=== PATIENT | female | born 1960 | race Caucasian/White ===

== ENCOUNTER 2025-08-10 10:52 | Emergency (ER) | payer MEDICARE, SELFPAY ==
--- NOTE | ~2025-08-10 | CT_ITS ---
CLINICAL HISTORY: abdominal pain CT abdomen and pelvis without contrast Comparison: None provided Findings: The lung bases are clear. Cholelithiasis. No pericholecystic fluid. No extrahepatic ductal dilation. 2.7 cm right kidney midpole exophytic cyst. Multifocal cortical scarring of the left kidney with mild perinephric stranding. No hydronephrosis or nephrolithiasis. No bowel obstruction, pneumoperitoneum, or pneumatosis. Pelvic contents unremarkable. Normal appendix. A large heterogeneous lesion measuring fluid density within the right psoas measuring 11.0 x 7.8 x 8.0 cm is seen. The bones are intact. IMPRESSION: A large heterogeneous lesion measuring fluid density within the right psoas measuring 11.0 x 7.8 x 8.0 cm. Differentials include psoas hematoma, phlegmon or developing abscess. Contrast enhanced CT or MRI is recommended for further evaluation. Cholelithiasis. Right kidney midpole exophytic 2.7 cm cyst. Multifocal cortical scarring of the left kidney with mild perinephric stranding. This document has been electronically signed by: Ananda Vale MD on 08/10/2025 20:13:43
[2025-08-10 11:10] VITALS: BP 152/77; PULSE 94; RESP 18; TEMP 36.9; O2SAT 96; BMI 39.0
--- NOTE | 2025-08-10 11:10 | ED.GENADULT ---
HPI - General Adult General Chief complaint: Urogenital-Female Stated complaint: uti? , right sided pain, hx of kidney failure Time Seen by Provider: 08/10/25 16:46 Source: patient Mode of arrival: ambulatory Limitations: no limitations History of Present Illness ED Provider: Dr. Pino HPI narrative: This is a 64-year-old female history of presented hospital today for 5 months of right hip pain and thigh pain. Patient is also complaining of right flank pain as well. Patient stated that this pain is on and off. She is also mentioning that she is losing some weight associated with this pain. She does have history of CKD where she falls nephrologists with. She denies any fever. Patient stated that this has been going on since winter time. She has not follow up with a doctor in regards to this pain. Related Data Previous Rx's ?Medication ?Instructions ?Recorded doxycycline hyclate 100 mg capsule 100 mg PO BID 7 days #14 caps 08/10/25 metronidazole 500 mg tablet 500 mg PO BID 7 days #14 tabs 08/10/25 Allergies Allergy/AdvReac Type Severity Reaction Status Date / Time codeine (CODEINE) Allergy Intermediate UNKNOWN Verified 08/10/25 11:15 Penicillins (PENICILLINS) Allergy Intermediate UNKNOWN Verified 08/10/25 11:15 clonidine Allergy Unknown tongue/facial Verified 08/10/25 11:15 swelling terazosin (TERAZOSIN) Allergy Unknown UNKNOWN, Verified 08/10/25 11:15 leg pain ? swelling valsartan (VALSARTAN) Allergy Unknown UNKNOWN, Verified 08/10/25 11:15 edema acetaminophen (Percocet) AdvReac Unknown N/V Verified 08/10/25 11:15 oxycodone (Percocet) AdvReac Unknown N/V Verified 08/10/25 11:15 penicillin V AdvReac Unknown N/V Verified 08/10/25 11:15 Codeine Sulfate AdvReac Unknown N/V Uncoded 08/10/25 11:15 Review of Systems Review of Systems: Pertinent review of systems as mentioned in HPI. All other system otherwise negative. COUNT INCLUDES THE [facility] Past Medical History COUNT INCLUDES THE [facility] Narrative: Medical history as mentioned in HPI Social History Social History Advance Directives: No Advance Directives Information Provided: No Physical Exam ED Exam Exam: General: Pleasant, no distress, interacting appropriately Head: Normacephalic, atraumatic ENT: oral mucosa moist, neck supple, no tracheal deviation Cardiovascular: regular rate, regular rhythm, no murmurs, rubbing, gallops Respiratory: CTAB, no wheeze, rales, rhonchi Gastrointestinal: Soft, non distended, right-sided abdominal pain on palpation, no CVA tenderness on exam. Extremities: Trace edema bilateral lower extremity Neurological: Awake and alert, no facial droop noted Skin: Warm and dry Psychiatric: Appropriate mood and thoughts Vital Signs: Vital Signs - 24 hr 08/10/25 11:10 08/10/25 17:40 08/10/25 21:11 Temperature 98.5 F 98.2 F Pulse Rate 94 69 96 Respiratory Rate 18 18 20 Blood Pressure 152/77 H 178/95 H 147/94 H Pulse Oximetry 96 99 99 Oxygen Delivery Method Room Air Room Air Room Air BMI result Body Mass Index 39.0 Course Course Course Narrative: This is a rapid medical exam performed by Addi Arboleda [employer]: Additional HPI, ROS, PE not included below will be deferred to primary provider. Patient is a 64y/o F presenting to the ED with complaint of right flank pain, questioning UTI. States pain radiates down right leg with associated swelling. Stopped taking antihypertensive medication in the morning this week but still taking it at night, I'm taking too much medication. Sees Dr. Gonzales but has not had appt in some time. States all her medications are prescribed by her show horse driver, Dr. Hermosillo. Plan: labs, UA Medications Administered Discontinued Medications Generic Name Dose Route Start Last Admin Trade Name Freq PRN Reason Stop Dose Admin Al Hydroxide/Mg Hydroxide 30 ml 08/10/25 17:13 08/10/25 17:57 Magnesium Hydrox/Alum Hydrox 30 Ml Oral.Susp PO 08/10/25 17:14 Not Given ONCE ONE Lidocaine HCl 15 ml 08/10/25 17:13 08/10/25 17:57 Lidocaine Hcl Viscous 2 % 15 Ml Solution MUCOUS MEM 08/10/25 17:14 Not Given ONCE ONE Medical Decision Making Medical Decision Making [facility] Narrative: 64-year-old female history of CKD, hypertension presented hospital today for evaluation of 5 months of right flank pain. On my differential is possible neoplasm, versus possible infection. UTI, nephrolithiasis. We will obtain abdominal lab work for the patient's CT abdomen and pelvis will be performed. We will plan to obtain dry scan of her CT abdomen and pelvis. Patient's lab work did show some leukocytosis at 13.1, patient creatinine is 1.63. Similar to his her prior creatinine level this likely secondary to her CKD, patient's bilirubin is unremarkable. UA did show moderate leuk esterase. However no bacteria. Patient may have a intra-abdominal inflammation process that is causing the leuk esterase reaction to her urine. Patient CT imaging shows large heterogeneous lesion on the right psoas muscle around 11 cm in size. Discussed with the patient that I recommend further imaging to assess this right psoas collection. Patient denies any recent trauma. Patient stated that she does not want to stay any longer. Did discuss her on obtain a CT imaging with contrast. This may cause worsening of her CKD. Patient would prefer to pass on further imaging at this time and further workup. I did discuss the risk of this if this is an abscess or infection that she may develop sepsis or even . The patient understands the risk. Patient states she would rather follow up with her primary care doctor for further management of this psoas mass. Patient will be discharged at this time. Differential Diagnosis Differential Diagnoses: The differential diagnosis associated with the presentation includes UTI, nephrolithiasis, colitis, psoas mass Admission/Observation Consideration of admission/observation: Escalation of care including admission/observation considered Lab Data MDM Lab Attestation statement: I reviewed the patient's lab results. 08/10/25 11:24 08/10/25 11:24 Labs: Lab Results 08/10/25 08/10/25 Range/Units 11:24 17:35 WBC 13.1 H (4.8-10.8) X10*3/uL RBC 5.27 (4.20-5.50) X10*6/uL Hgb 12.2 (12.0-16.0) g/dl Hct 39.0 (37.0-47.0) % MCV 74.0 L (80.0-98.0) fL MCH 23.1 L (27.0-33.0) pg MCHC 31.3 (31.0-35.0) g/dl RDW 17.3 H (11.0-16.0) % Plt Count 251 (160-400) X10*3/uL MPV 9.9 (9.4-12.3) fL Immature Gran % (Auto) 0.5 H (0.0-0.4) % Neut % (Auto) 82.7 H (45-73) % Lymph % (Auto) 8.7 L (20-40) % Knox % (Auto) 6.3 (2-11) % Eos % (Auto) 1.2 (0-4) % Baso % (Auto) 0.6 (0-2) % Lymph # (Auto) 1.1 L (1.2-4.9) X10*3/uL Knox # (Auto) 0.8 (0.1-1.2) X10*3/uL Eos # (Auto) 0.2 (0.0-0.4) X10*3/uL Baso # (Auto) 0.1 (0.0-0.2) X10*3/uL Abs Immat Gran (auto) 0.06 H (0.00-0.03) X10*3/uL Absolute Neuts (auto) 10.8 H (2.0-8.3) x10*3/uL Absolute Nucleated RBC 0.000 (0.0-0.012) X10*3/uL Nucleated RBC % (auto) 0.0 (0.0-0.2) /100WBC Sodium 140 (135-145) mmol/L Potassium 4.5 (3.3-5.1) mmol/L Chloride 106 (96-108) mmol/L Carbon Dioxide 23 (22-29) mmol/L Anion Gap 16 (12-20) BUN 18 H (9-16) mg/dL Creatinine 1.63 H (0.5-1.4) mg/dL Estim Creat Clear Calc 38.2 Estimated GFR 32 Random Glucose 107 (60-115) mg/dL Calcium 9.0 (8.4-10.2) mg/dL Total Bilirubin 0.4 (0.0-1.0) mg/dL AST 28 (5-31) U/L ALT 9 (0-31) U/L Alkaline Phosphatase 110 (39-117) U/L Total Protein 6.7 (6.5-8.0) g/dL Albumin 3.7 (3.5-5.0) g/dL Urine Color Yellow Urine Appearance Cloudy Urine pH 5.5 (5.0-9.0) Ur Specific [place] 1.015 (1.005-1.025) Urine Protein 100 (2+) H (Neg-Trace) mg/dL Urine Glucose (UA) Negative (Negative) mg/dL Urine Ketones Trace (Negative) mg/dL Urine Blood Small (1+) H (Negative) Urine Nitrite Negative (Negative) Ur Leukocyte Esterase Moderate (2+) H (Negative) Urine RBC 3-5 H (0-2) /HPF Urine WBC 11-20 (0-5) /HPF Ur Squamous Epith Cells 0-2 (0-2) /HPF Urine Bacteria None Seen (None Seen) Hyaline Casts 11-20 (0-2) /LPF Independent Interpretation I performed an independent interpretation of an: CT Scan Radiology Impression Discussion of test interpretation with radiology: I have reviewed the radiologist's reading. Discharge Plan Discharge Clinical Impression: Mass of psoas muscle Patient Disposition: Home, Self-Care Additional Instructions: You have a mass on your right psoas muscle. Please follow up for further investigation. I recommend you stay in the hospital for further workup and investigation. This may be an abscess, hematoma or a mass. I am worry it is a mass with your history of weight loss. Prescriptions: New doxycycline hyclate 100 mg capsule 100 mg PO BID 7 Days Qty: 14 0RF metronidazole 500 mg tablet 500 mg PO BID 7 Days Qty: 14 0RF Interventions: ED Discharge Assessment Last Done: 08/10/25 21:20 Print Language: Serbian
[2025-08-10 11:28] LABS: MANUAL DIFF FLAG NO
[2025-08-10 11:31] LABS: Hematocrit 39.0 % (37.0-47.0); Hemoglobin 12.2 g/dl (12.0-16.0); Imm Gran Abs Auto 0.06 X10*3/uL (0.00-0.03); Imm Gran Pct Auto 0.5 % (0.0-0.4); Lymphocytes Absolute Auto 1.1 X10*3/uL (1.2-4.9); Mean Corpuscular HGB Conc 31.3 g/dl (31.0-35.0); Mean Corpuscular Hemoglobin 23.1 pg (27.0-33.0); Mean Corpuscular Volume 74.0 fL (80.0-98.0); NRBC Abs Auto 0.000 X10*3/uL (0.0-0.012); NRBC Pct Auto 0.0 /100WBC (0.0-0.2); Platelet Count 251 X10*3/uL (160-400); Red Blood Count 5.27 X10*6/uL (4.20-5.50); White Blood Count 13.1 X10*3/uL (4.8-10.8)
[2025-08-10 12:00] LABS: Alanine Aminotransferase 9 U/L (0-31); Albumin Level 3.7 g/dL (3.5-5.0); Alkaline Phosphatase 110 U/L (39-117); Anion Gap 16 (12-20); Aspartate Amino Transferase 28 U/L (5-31); Blood Urea Nitrogen 18 mg/dL (9-16); Calcium 9.0 mg/dL (8.4-10.2); Carbon Dioxide 23 mmol/L (22-29); Chloride 106 mmol/L (96-108); Creatinine Clr Calc Pharmacy 38.2; Estimated Glomerular Filt Rate 32; Potassium 4.5 mmol/L (3.3-5.1); Sodium 140 mmol/L (135-145); Total Protein 6.7 g/dL (6.5-8.0)
[2025-08-10 17:40] VITALS: BP 178/95; PULSE 69; RESP 18; O2SAT 99
[2025-08-10 17:42] LABS: Appearance Urine Cloudy; Glucose Urine UA Negative (Negative); PH 5.5 (5.0-9.0); Specific Gravity - Urine 1.015 (1.005-1.025); UMIC TRIGGER UACC YES
[2025-08-10 17:54] LABS: UACC Culture Trigger YES
[2025-08-10 21:11] VITALS: BP 147/94; PULSE 96; RESP 20; TEMP 36.8; O2SAT 99
[2025-08-10 21:20] VITALS: BP 147/94; PULSE 96; RESP 20; TEMP 36.8; O2SAT 99
--- OUTSIDE RECORDS SUMMARY | 2025-08-10 21:48 | XMS_ITS | Encounter Summary ---
Author Organization [facility] Address [address] [place] [address] Phone Care Team Providers Care Wellness Specialist Name Role Phone Bette Gonzales MD Primary Care Provider [phone] Reason for Visit * Reason Comments Med Refill Encounter Details Date Type Department Care Team (Late st Contact Info) Description 12/02/2021 Refill [facility] [address] [place] [address] Bryce Diez MD [address] [facility] [address] [place] [address] Social History Tobacco Use Types Packs/Day Years Used Date Smoking Tobacco: Former Alcohol Use Standard Drinks/Week Comments No 0 (1 standard drink = 0.6 oz pur e alcohol) Comments Unknown Sex and Gender Information Value Date Recorded Sex Assigned at Not on file Legal Sex Female 4:40 PM EST Gender Identity Not on file Sexual Orientation Not on file documented as of this encounter Miscellaneous Notes * Telephone Encounter - Bryce Diez MD - 12/05/2021 5:13 AM EST Needs f/u in 5-6 weeks with me 1. tell them I sent rx but no refils 2. They must see me or have a telehealth visit with me before I can renew it again 3. when u call them be sure to make the f/u appt at the same time u inform them th rx was sent by me documented in this encounter Plan of Treatment Not on file documented as of this encounter Visit Diagnoses Not on filedocumented in this encounter Care Teams Wellness Specialist Relationship Specialty Start Date End Date Bette Gonzales MD [address] [place] [address] PCP - General 12/06/20 documented as of this encounter
--- OUTSIDE RECORDS SUMMARY | 2025-08-10 21:48 | XMS_ITS | Encounter Summary ---
Author Organization [facility] Address [address] [place] [address] Phone Care Team Providers Care Electron Beam Photo Mask Maker Name Role Phone Bette Gonzales MD Primary Care Provider [phone] Reason for Visit * Reason Comments Med Refill Encounter Details Date Type Department Care Team (Late st Contact Info) Description 07/09/2023 Refill [facility] [address] [place] [address] Valentino Mendoza MD [address] [facility] [address] [place] [address] Social History Tobacco Use Types [...] on file documented as of this encounter Plan of Treatment Not on file documented as of this encounter Visit Diagnoses Not on filedocumented in this encounter Care Teams Electron Beam Photo Mask Maker Relationship Specialty Start Date End Date Bette Gonzales MD [facility] [place] [address] PCP - General 12/06/20 documented as of this encounter
--- OUTSIDE RECORDS SUMMARY | 2025-08-10 21:48 | XMS_ITS | Encounter Summary ---
Author Organization [facility] Address [address] [place] [address] Phone Care Team Providers Care Script Supervisor Name Role Phone Bette Gonzales MD Primary Care Provider [phone] Reason for Visit * Reason Comments Med Refill Encounter Details Date Type Department Care Team (Late st Contact Info) Description 08/23/2021 Refill [facility] [address] [place] [address] Bryce Diez MD [address] [facility] [address] [place] [address] Social History Tobacco Use Types [...] Telephone Encounter - Bryce Diez MD - 08/23/2021 12:57 PM EDT .Needs f/u in 5-6 weeks with me 1. [...] on filedocumented in this encounter Care Teams Script Supervisor Relationship Specialty Start Date End Date Bette Gonzales MD [address] [place] [address] PCP - General 12/06/20 documented as of this encounter
--- OUTSIDE RECORDS SUMMARY | 2025-08-10 21:48 | XMS_ITS | Encounter Summary ---
Author Organization [facility] Address [address] [place] [address] Phone Care Team Providers Care Filling Separator Name Role Phone Bette Gonzales MD Primary Care Provider [phone] Reason for Visit * Reason Comments Med Refill Encounter Details Date Type Department Care Team (Late st Contact Info) Description 01/11/2024 Refill [facility] [address] [place] [address] Valentino Mendoza MD [address] [facility] [address] [place] [address] Social History Tobacco Use Types [...] on filedocumented in this encounter Care Teams Filling Separator Relationship Specialty Start Date End Date Bette Gonzales MD [facility] [place] [address] PCP - General 12/06/20 documented as of this encounter
--- OUTSIDE RECORDS SUMMARY | 2025-08-10 21:48 | XMS_ITS | Encounter Summary ---
Author Organization [facility] Address [address] [place] [address] Phone Care Team Providers Care Date Pitter Name Role Phone Bette Gonzales MD Primary Care Provider [phone] Reason for Visit * Reason Comments Med Refill Encounter Details Date Type Department Care Team (Late st Contact Info) Description 08/25/2021 Refill [facility] [address] [place] [address] Bryce Diez MD [address] [facility] [address] [place] [address] Social History Tobacco Use Types [...] on filedocumented in this encounter Care Teams Date Pitter Relationship Specialty Start Date End Date Bette Gonzales MD [facility] [place] [address] PCP - General 12/06/20 documented as of this encounter
--- OUTSIDE RECORDS SUMMARY | 2025-08-10 21:49 | XMS_ITS | Clinical Summary ---
Author Organization [facility] Address [address] [place] [address] Care Team Providers Care Janitorial Manager Name Role Phone Bette Gonzales MD Primary Care Provider [phone] Allergies Active Allergy Reactions Criticality Noted Date Comments Clonidine Other (see comments) 08/03/2021 Codeine Other (see comments) 08/03/2021 Penicillin V Other (see comments) 08/03/2021 Terazosin Other (see comments) 08/03/2021 Valsartan Other (see comments) 08/03/2021 Medications bumetanide (BUMEX) 1 MG tablet TAKE 1 TABLET BY MOUTH TWICE A DAY 60 tablet 01/30/2022 Active losartan (COZAAR) 100 MG tabletIndicatio ns:Anemia of chronic disease Take 1 tablet (100 mg total) by mouth 1 (one) time each day 30 tablet 1 02/08/2022 Active valsartan (Diovan) 160 MG tablet Take 1 tablet (160 mg total) by mouth 1 (one) time each day 90 tablet 2 02/08/2022 Active ergocalciferol 1.25 MG (15646 UT) capsule TAKE 1 CAPSULE BY MOUTH ONE TIME PER WEEK 4 capsule 04/02/2023 Active labetalol (NORMODYNE) 300 MG tablet TAKE 1 TABLET (300 MG TOTAL) BY MOUTH IN THE MORNING AND 1 TABLET (300 MG TOTAL) IN THE EVENING. 180 tablet 3 01/03/2025 Active Active Problems Problem Noted Date Diagnosed Date Chronic kidney disease, stage 4 (severe) 022 Renal osteodystrophy 01/30/2022 Acute nontraumatic kidney injury 08/03/2021 Anemia of chronic disease 08/03/2021 Benign hypertensive renal disease 08/03/2021 Chronic kidney disease stage 3 08/03/2021 Morbid obesity 08/03/2021 Proteinuria 08/03/2021 Family History Medical History Relation Comments Heart disease Father Hypertension Father Cancer Mother Hypertension Mother Relation Status Comments Father Mother Alive Social History Tobacco Use Types Packs/Day Years Used Date Smoking Tobacco: Former Alcohol Use Standard Drinks/Week Comments No 0 (1 standard drink = 0.6 oz pur e alcohol) Comments Unknown Sex and Gender Information Value Date Recorded Sex Assigned at Not on file Legal Sex Female 4:40 PM EST Gender Identity Not on file Sexual Orientation Not on file Last Filed Vital Signs Vital Sign Reading Time Taken Comments Blood Pressure 124/66 06/23/2019 12:00 PM EDT Pulse 70 06/23/2019 12:00 PM EDT Temperature - - Respiratory Rate - - Oxygen Saturation 98% 06/23/2019 12:00 PM EDT Inhaled Oxygen Concentration - - Weight 132 kg (292 lb) 06/23/2019 12:00 PM EDT Height 160 cm (5' 3 ) 06/23/2019 12:00 PM EDT Body Mass Index 51.73 06/23/2019 12:00 PM EDT Plan of Treatment Health Maintenance Due Date Last Done Comments Breast Cancer Screening 1960 Pneumococcal Vaccine: 50+ Ye ars (1 of 2 - PCV) 1977 Colorectal Cancer Screening: Annual FOBT 2007 Colorectal Cancer Screening: Colonoscopy 2007 Colorectal Cancer Screening: Sigmoidoscopy 2007 Influenza Vaccine (#1) 2025 Hepatitis B Vaccine Aged Out No longe r eligible based on patient's age to complete this topic Insurance [facility] Medicaid [facility] Medicaid Care Teams Janitorial Manager Relationship Specialty Start Date End Date Bette Gonzales MD [address] [place] [address] PCP - General 12/06/20
--- OUTSIDE RECORDS SUMMARY | 2025-08-10 21:49 | XMS_ITS | Patient Health Record ---
Author Organization [facility] Address [address] [place] [address] Care Team Providers Care Bmet Name Role Phone Christian DUARTE, Asma Primary Care Provider Keagan Nicholas Unavailable [phone] Renetta DUARTE, Ty Unavailable Unavailable Allergies Allergen (clinical drug ingredient) Drug/Non Drug Allergy documented on EMR Reaction Allergy Type Onset Date Status Penicillin Unknown Drug Allergy Active tetracycline Tetracycline HCl Unknown Drug Allergy Active codeine Codeine Sulfate Unknown Drug Allergy A ctive plus many more,pt no t sure,many years ago (uncoded) Unknown Allergy Active Reason For Referral No Information Medications Medication SIG (Take, Route, Frequency, Duration) Notes Start Date End Date Status cloNIDine HCl 0.1 MG TAKE 1 TABLET DAILY Oral for 30 Active amLODIPine Besylate 10 MG TAKE 1 TABLET EVERY DAY Oral for 30 Active Colyte w Flavor Packs 240 GM as directed Orally as directed for 1 day(s) 07/13/2015 Active Metoprolol Tartrate 25 MG 1 TABLET TWICE A DAY ORALLY 30 DAYS Oral for 30 Activ e Plan Of Treatment Future Test Test Name Order Date COLONOSCOPY 07/13/2015 Insurance Providers Payer Name Payer Address Payer Phone Subscriber Number Group Number Insured Name Patient Relationship to Insured Coverage Start Date Coverage End Date [employer] [address] [place] [address] [id number] RINKU WAREA Self - patient is the insured MEDICAID OF [employer] [address] [place] [address] [id number] RINKU WAREA Self - patient is the insured Medical (General) History Medical History History ICD Code Hypertension Denies CO,DM,CVA,Lung disease Renal failure-sees Dr. Diez-may be hav ing a renal biopsy AVaishali peterson She was hospitalized for all of the above issues in April of 2015--she was also found to have anemia with a hemoglobin as low as 8.9-her iron was 46 and her iron saturation was 18%--The B12 level was normal and the folate was at the lower limit of normal at 4.2--- she did not undergo any GI procedures at that time due to her other ongoing medical problems Surgical History Surgery Date(Month/Year) detached retina
== END 2025-08-10 21:21 | disposition home or self-care (01) ==
PROVIDERS: Registered Nurse Emergency; Emergency Provider Student in an Organized Health Care Education/Training Program; PCP Internal Medicine
DX: M60.88 Other myositis, other site (principal); M25.551 Pain in right hip; R10.2 Pelvic and perineal pain; R79.89 Other specified abnormal findings of blood chemistry; I10 Essential (primary) hypertension; Z79.899 Other long term (current) drug therapy
CPT/HCPCS: 36415; 74176; 80053; 81001; 85025; 87086; 99284

== ENCOUNTER → 2025-08-10 18:00 | Outpatient (BNV) | payer MEDICARE, SELFPAY | PROVIDERS: Emergency Provider Student in an Organized Health Care Education/Training Program; PCP Internal Medicine; Visit Provider Student in an Organized Health Care Education/Training Program | DX: N28.1 Cyst of kidney, acquired (principal) | CPT/HCPCS: 74176 ==

== ENCOUNTER 2025-09-16 11:06 | Inpatient (IN) | payer MEDICARE, SELFPAY ==
--- NOTE | ~2025-09-16 | IR_ITS ---
CLINICAL HISTORY: New right pelvic mass resulting in ureteral obstruction and right hydronephrosis PROCEDURES: Right nephroureteral stent placement MEDICATIONS: -Fentanyl, Versed Lidocaine 1% 10 mL SQ. -Antibiotics: Ancef -For additional details, please see nursing flowsheet. COMPLICATIONS: None. ESTIMATED BLOOD LOSS: <5 ml SPECIMENS: None FLUOROSCOPY TIME: 2.4 min dose 45.54 mgy MODERATE SEDATION TIME: 45 min PROCEDURE NOTE: The procedure, risks, benefits, and alternatives were carefully explained to patient, and written informed consent was obtained. The patient was placed prone on the fluoroscopy table. A timeout was performed. The right back was prepped and draped in usual sterile fashion. Preliminary ultrasound demonstrates moderate right hydronephrosis. Following the administration of 1% lidocaine for local anesthesia, a midlower pole posterior calyx was accessed under direct ultrasound guidance with a 21-gauge AccuStick needle. The needle was exchanged for the triaxial dilator over a 0.018 guidewire. Contrast injection confirms position and shows moderate right hydroureteronephrosis with thin trickle of contrast beginning in the mid ureter consistent with known external compression from mass. We negotiated a 0.035 guidewire and 4 Green[place]ic hockey-stick catheter down the ureter beyond the obstruction and into the bladder. After dilating the tract, we placed an 8.5 Green[place]ic by 24 cm nephroureteral stent. The distal pigtail was formed within the bladder. The proximal pigtail was formed within the renal pelvis. Contrast injection through the newly placed tube demonstrates satisfactory position. An image was saved. The external portion of the catheter was secured with a single suture. The catheter was maintained to gravity bag drainage. A dressing was applied. Patient tolerated procedure well with no immediate complications The patient was stable after the procedure and was transferred to the post anesthesia care unit. This procedure was performed under moderate sedation with a dedicated nurse and continuous monitoring of vital signs. IR/IR nephrostomy IMPRESSION: Placement of right nephroureteral stent as above PLAN: -Catheter should be maintained to gravity bag drainage. Flush catheter with 10 mL saline/twice daily -Blood within the urine is expected for the first few days after catheter placement. However, this persists or increases, contact IR. -If catheter is present for a long period of time, routine exchange at 12 weeks is recommended. Electronically signed by: Yassine Bar MD 09/17/2025 03:57 PM EDT RP
--- NOTE | ~2025-09-16 | US_ITS ---
EXAMINATION: US TRIPLEX LOWER EXTREMITY, RIGHT CLINICAL INFORMATION: Right leg DVT seen on CT the abdomen and pelvis earlier the same day. Right retroperitoneal mass. COMPARISON: CT of the abdomen and pelvis most recently from earlier the same day TECHNIQUE: Color-flow triplex imaging with spectral analysis and compression Doppler were performed on the right lower extremity. FINDINGS: There is extensive right leg DVT from the right common femoral to popliteal veins. The right common femoral vein is enlarged, diffusely hypoechoic and demonstrates no flow and decreased compression compatible with occlusive acute DVT. Right superficial femoral vein is partially duplicated. The vein is enlarged, diffusely hypoechoic, demonstrates decreased compression with some areas of acute occlusive DVT and other areas of partially occlusive DVT. The popliteal vein is enlarged, hypoechoic, with decreased compression and near occlusive acute DVT. Nonocclusive acute appearing thrombus is seen in the right greater saphenous vein and profunda femoral veins. Visualized calf veins appear patent. There is no Malhotra's cyst. US/US venous duplex LE RT IMPRESSION: Extensive deep venous thrombosis involving the right lower extremity. Findings were communicated to Zia Colon by telephone on 09/16/2025 at 4:30 PM. Electronically signed by: Melba Parker MD 09/16/2025 04:39 PM EDT
--- NOTE | ~2025-09-16 | CT_ITS ---
EXAMINATION: CT ABDOMEN AND PELVIS WITH CONTRAST CLINICAL INFORMATION: Iliopsoas abscess. 65-year-old female. COMPARISON: 08/10/2025 CT abdomen and pelvis without contrast. TECHNIQUE: Multidetector volumetric images were obtained from the superior aspect of the liver through the pubic symphysis following administration 85 mL of Omnipaque 350 intravenous contrast. Sagittal and coronal reformatted images were obtained on the technologist's workstation. Oral contrast: No This CT examination was performed using dose optimization techniques as appropriate, variously including the following: *Automated exposure control *Adjustment of mA and/or kV according to patient size (this includes techniques or standardized protocols for targeted exams where dose is matched to indication/reason for exam; i.e. extremities or head) *Use of iterative reconstruction technique FINDINGS: LUNG BASES: Minimal right lateral base subpleural atelectasis is again noted. Lung bases otherwise clear. No pleural effusions. Mild cardiac enlargement. Small hiatus hernia at the GE junction. LIVER, GALLBLADDER, AND BILIARY TREE: The liver is normal in size, shape, and attenuation. No focal hepatic lesion or biliary ductal dilatation is present. Mild focal fatty infiltration abutting the falciform ligament. Gallbladder demonstrates several calcified large intraluminal gallstones. No wall thickening or pericholecystic inflammation. PANCREAS: Unremarkable. SPLEEN: Minimal splenomegaly, with AP diameter measuring 12.6 cm. Spleen otherwise normal. ADRENAL GLANDS: There is bilateral hyperplasia present. KIDNEYS AND URETERS: The right kidney demonstrates moderate hydronephrosis and proximal hydroureter. There is transition to decompressed ureter in the mid aspect abutting the psoas fluid collection/abnormality. The distal ureter appears somewhat matted to the psoas collection. There are small right renal cysts. There is mild right perirenal stranding. There are no calculi or masses. The left kidney demonstrates no hydronephrosis or hydroureter. There are no calculi or masses. There are tiny subcentimeter cysts present, and there is scarring in the upper pole. BLADDER: Mildly distended. Grossly normal. GASTROINTESTINAL TRACT: Small type I hiatus hernia. Stomach is decompressed. Duodenum is normal. The small bowel is normal in caliber and course. No wall thickening or inflammation. The appendix appears grossly normal. The colon is normal in caliber and course. There are scattered diverticula present. There is no wall thickening or inflammation. PERITONEUM/RETROPERITONEUM: There is redemonstration of marked enlargement of the right psoas muscle, with heterogeneous attenuation, heterogeneous enhancement, and partial fluid attenuation. It measures approximately 9.4 x 9.6 x 12.7 cm (previously measuring approximately 7.9 x 8.2 x 11.0 cm. It appears slightly larger. Central attenuation is approximately 18 Hounsfield units, however more peripheral attenuation is as high as 37 Hounsfield units. This abnormality is displacing the right ureter anteriorly, and may be adhesed to the mid ureter causing a ureteral obstruction. It appears to be encasing the right external iliac artery approximately, with a significant diameter reduction (series 3, image 54). The right ovary is also inseparable from the mass lesion. There is an external iliac lymph node present measuring 1.9 x 1.4 cm (series 3, image 62). There is an additional external iliac lymph node abutting the inferior margin of the mass measuring 1.2 x 1.0 cm (series 3, image 56). It is likely encasing and possibly thrombosis involving the right iliac vein proximally. There may be thrombus in the common femoral vein as well (series 3, image 74), versus mixing artifact although this is considered less likely. ABDOMINAL WALL: No significant hernia is appreciated. LYMPH NODES: As above. No additional abnormal lymph nodes detected. VASCULAR: As above. There is no aneurysm. PELVIC VISCERA: The uterus is enlarged, and there are irregular partially cystic masses within suggestive of necrotic fibroids. Differential includes endometrial neoplasm or myometrial neoplasm, possibly representing a primary. The right ovary is inseparable from the inferior right iliac mass. The left ovary is normal. OSSEOUS STRUCTURES: There is no suspicious lytic or blastic bone lesion evident. There is a grade 1 spondylolisthesis of L5-S1. CT/CT abdomen pelvis w IV con IMPRESSION: 1. Large oval heterogeneously attenuating and enhancing cystic mass involving the right psoas muscle, slightly increased in size from the recent prior examination of 08/10/2025. Given the appearance of this mass, cystic neoplasm is suspected. 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 This does not appear to represent an abscess or hematoma given the irregular enhancement pattern. 2. This mass encases and narrows the right proximal external iliac artery and vein, and is likely resulting in deep venous thrombosis of the right iliac vein extending to the imaged common and profunda femoral veins. Consider correlating with right lower extremity DVT ultrasound. 3. There are abutting enlarged right external iliac lymph nodes measuring up to 1.9 x 1.4 cm. 4. The mid right ureter appears to be adhesed to the cystic mass, with resultant moderate right hydronephrosis and proximal hydroureter. 5. Partially necrotic masses within the uterus, possibly a primary endometrial or myometrial neoplasm versus necrotic fibroids. 6. Additional ancillary findings as discussed in the body of the report. Electronically signed by: Jose David Luis MD 09/16/2025 02:05 PM EDT
--- NOTE | ~2025-09-16 | CT_ITS ---
PROCEDURE: CT GUIDED BIOPSY, ABDOMINAL MASS CLINICAL INFORMATION: Right psoas mass COMPARISON: Previous CT of the abdomen and pelvis post recent September 16, 2025 TECHNIQUE: Procedure risks and benefits including bleeding, infection and inadequate biopsy specimen were discussed with the patient and informed consent was obtained. The patient was positioned in the left decubitus position. Limited axial images through the lower abdomen were obtained. The left flank was prepped and draped in the usual sterile fashion. The skin and soft tissues were anesthetized with 1% lidocaine plain. Using CT guidance and a coaxial system, access to the left psoas mass was obtained. 4 18-gauge core biopsies were obtained. The patient received Versed 0.5 mg and fentanyl 25 mcg intravenously during the procedure. Conscious sedation was provided by a registered nurse under my direct supervision. Total sedation time was [address] examination was performed using dose optimization techniques as appropriate, variously including the following: *Automated exposure control *Adjustment of mA and/or kV according to patient size (this includes techniques or standardized protocols for targeted exams where dose is matched to indication/reason for exam; i.e. extremities or head) *Use of iterative reconstruction technique DAP 2 5 9 mgy/cm FINDINGS: There is a heterogeneous mass in the right psoas muscle that was targeted for biopsy. No postprocedure hemorrhage. There is a new right nephroureterostomy tube in satisfactory position. There is interval decrease in right hydronephrosis and ureteral dilatation from previous exam. Otherwise there is no appreciable change from recent exam. CT/CT biopsy abdomen percutaneous IMPRESSION: CT-guided right psoas biopsy. Electronically signed by: Melba Parker MD 09/18/2025 11:59 AM EDT
[2025-09-16 11:34] VITALS: BP 185/82; BP 186/90; PULSE 97; RESP 18; TEMP 36.8; O2SAT 97; O2SAT 98; BMI 37.8
--- NOTE | 2025-09-16 11:46 | ED.ABDPAIN ---
HPI - Abdominal Pain General Chief Complaint: Abdominal Pain Stated Complaint: ABD PAIN PER EMS Time Seen by Provider: 09/16/25 11:08 Source: patient and EMS Mode of arrival: EMS Limitations: no limitations History of Present Illness ED Provider: HPI narrative: 65-year-old woman presenting with continued pain along her right lower extremity mostly anterior, pain with flexion, was seen here August 10 diagnosed with abscess versus hematoma of the psoas muscle, discharged home on antibiotics she states she felt like the antibiotics made things worse she could not tolerate them, she threw up and then initially she states her legs swell up and now has resolved. She lives at home, has [facility]NA to help her, has been walking with the pain. No fevers or chills. No dysuria hematuria. Related Data Home Medications ?Medication ?Instructions ?Recorded ?Confirmed labetalol 300 mg tablet 300 mg PO DAILY@1300 09/16/25 09/16/25 Allergies Allergy/AdvReac Type Severity Reaction Status Date / Time codeine (CODEINE) Allergy Intermediate UNKNOWN Verified 09/16/25 11:36 Penicillins (PENICILLINS) Allergy Intermediate UNKNOWN Verified 09/16/25 11:36 clonidine Allergy Unknown tongue/facial Verified 09/16/25 11:36 swelling terazosin (TERAZOSIN) Allergy Unknown UNKNOWN, Verified 09/16/25 11:36 leg pain ? swelling valsartan (VALSARTAN) Allergy Unknown UNKNOWN, Verified 09/16/25 11:36 edema acetaminophen (Percocet) AdvReac Unknown N/V Verified 09/16/25 11:36 oxycodone (Percocet) AdvReac Unknown N/V Verified 09/16/25 11:36 penicillin V AdvReac Unknown N/V Verified 09/16/25 11:36 Codeine Sulfate AdvReac Unknown N/V Uncoded 08/10/25 11:15 Review of Systems Constitutional: Reports as per [facility] Social History Social History Use of substances other than those prescribed or required for medical reasons: No Advance Directives: No Advance Directives Information Provided: Yes Do you have a plan to hurt others: No Plan Physical Exam ED Exam Exam: General: ?Appears of stated age ? ?CV: RRR, no obvious murmurs appreciated ? ?Resp: ?No wheezing rales rhonchi no stridor moving air well ? Abd: ?Bowel sounds are present, no tenderness no rebound no rigidity ? ?MSK: Patient has painful motion with right hip flexion, is able to lift her right lower extremity off the gurney with some assistance, no edema noted bilateral lower extremities, no sensory deficits, neurovascular function intact ? Skin: Warm, dry, intact, no rashes, no skin changes ? ?Neuro: ?Alert and oriented x3, Vital Signs: Vital Signs - 24 hr 09/16/25 11:34 09/16/25 13:03 09/16/25 13:05 Temperature 98.2 F 98.0 F Pulse Rate 97 98 Respiratory Rate 18 18 Blood Pressure 186/90 H 179/88 H Pulse Oximetry 97 98 Oxygen Delivery Method Room Air Room Air BMI result Body Mass Index 37.8 Medical Decision Making Medical Decision Making MDM Narrative: 11:50 AM 09/16/2025 (Dr. Zia Colon): Patient was seen in July was diagnosed with psoas collection, hematoma versus abscess, discharged on antibiotics that she was not able to tolerate, really did not take more than 1 dose sounds like, and does not have a PCP involved in her care at this time, but she is in the process of obtaining 1, presenting without fevers or chills and has had no new neurologic complaints but seems that the pain has been stable and constant and she is not able to do the same activities she has done in the past. She definitely has some painful hip flexion on the right side which is consistent with the finding, I spoke to the patient, she does have CKD we will give fluids and obtain CT with IV contrast and we will also reach out to interventional radiology for available to see if she can have it drained, which would help with diagnosis 1:53 PM 09/16/2025 (Dr. Zia Colon): At this point I am suspicious for infectious etiology, she has worsening leukocytosis, CRP is elevated, CT on my review shows more of an abscess etiology, we will cover her with cefepime, blood cultures we will be obtained 2:24 PM 09/16/2025 (Dr. Zia Colon): CT imaging reveals that patient actually has a large mass with hydronephrosis and DVT, I reached out to Urology Dr. Crane, oncology Dr. Pena, and Dr. Bar is aware, we will start on heparin, will update patient Differential Diagnosis Differential Diagnoses: The differential diagnosis associated with the presentation includes Consult Healthcare Provider Management of the patient was discussed with: [employer] (Dr. Yassine Bar from IR, Dr. Crane, Dr. Pena) Lab Data 09/16/25 12:34 09/16/25 12:34 Labs: Lab Results 09/16/25 09/16/25 Range/Units 12:34 14:31 WBC 17.0 H (4.8-10.8) X10*3/uL RBC 5.40 (4.20-5.50) X10*6/uL Hgb 12.6 (12.0-16.0) g/dl Hct 41.1 (37.0-47.0) % MCV 76.1 L (80.0-98.0) fL MCH 23.3 L (27.0-33.0) pg MCHC 30.7 L (31.0-35.0) g/dl RDW 17.0 H (11.0-16.0) % Plt Count 263 (160-400) X10*3/uL MPV 9.4 (9.4-12.3) fL Immature Gran % (Auto) 0.6 H (0.0-0.4) % Neut % (Auto) 83.1 H (45-73) % Lymph % (Auto) 9.3 L (20-40) % [place] % (Auto) 5.5 (2-11) % Eos % (Auto) 1.0 (0-4) % Baso % (Auto) 0.5 (0-2) % Lymph # (Auto) 1.6 (1.2-4.9) X10*3/uL [place] # (Auto) 0.9 (0.1-1.2) X10*3/uL Eos # (Auto) 0.2 (0.0-0.4) X10*3/uL Baso # (Auto) 0.1 (0.0-0.2) X10*3/uL Abs Immat Gran (auto) 0.10 H (0.00-0.03) X10*3/uL Absolute Neuts (auto) 14.1 H (2.0-8.3) x10*3/uL Absolute Nucleated RBC 0.000 (0.0-0.012) X10*3/uL Nucleated RBC % (auto) 0.0 (0.0-0.2) /100WBC Sodium 139 (135-145) mmol/L Potassium 4.3 (3.3-5.1) mmol/L Chloride 104 (96-108) mmol/L Carbon Dioxide 27 (22-29) mmol/L Anion Gap 12 (12-20) BUN 20 H (9-16) mg/dL Creatinine 1.73 H (0.5-1.4) mg/dL Estim Creat Clear Calc 34.9 Estimated GFR 29 Random Glucose 108 (60-115) mg/dL Lactic Acid 1.4 (0.5-2.0) mmol/L Calcium 9.1 (8.4-10.2) mg/dL Total Bilirubin 0.4 (0.0-1.0) mg/dL AST 36 H (5-31) U/L ALT 11 (0-31) U/L Alkaline Phosphatase 112 (39-117) U/L C-Reactive Protein 5.84 H (< or = 0.50) mg/dL Total Protein 6.6 (6.5-8.0) g/dL Albumin 3.6 (3.5-5.0) g/dL Independent Interpretation I performed an independent interpretation of an: CT Scan (Noted large mass, hydronephrosis) Radiology Impression Discussion of test interpretation with radiology: I have reviewed the radiologist's reading. Radiologist Impression: 1. Large oval heterogeneously attenuating and enhancing cystic mass involving the right psoas muscle, slightly increased in size from the recent prior examination of 08/10/2025. Given the appearance of this mass, cystic neoplasm is suspected. 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 This does not appear to represent an abscess or hematoma given the irregular enhancement pattern. 2. This mass encases and narrows the right proximal external iliac artery and vein, and is likely resulting in deep venous thrombosis of the right iliac vein extending to the imaged common and profunda femoral veins. Consider correlating with right lower extremity DVT ultrasound. 3. There are abutting enlarged right external iliac lymph nodes measuring up to 1.9 x 1.4 cm. 4. The mid right ureter appears to be adhesed to the cystic mass, with resultant moderate right hydronephrosis and proximal hydroureter. 5. Partially necrotic masses within the uterus, possibly a primary endometrial or myometrial neoplasm versus necrotic fibroids. 6. Additional ancillary findings as discussed in the body of the report. Medications Administered Generic Name Dose Route Start Last Admin Trade Name Freq PRN Reason Stop Dose Admin Cefepime HCl 2 gm in 50 mls @ 100 mls/hr 09/16/25 14:00 09/16/25 15:03 Maxipime IV Infused Q12H ORLY Infusion Heparin Sodium/Sodium Chloride 25,000 unit in 250 mls @ 0 mls/hr 09/16/25 14:45 09/16/25 16:07 Heparin Sodium,Porcine/1/2ns IVCONT 14 units/kg/hr .Q0M ORLY 13.55 mls/hr Protocol Administration Per Protocol Discontinued Medications Generic Name Dose Route Start Last Admin Trade Name Freq PRN Reason Stop Dose Admin Heparin Sodium (Porcine) 7,700 unit 09/16/25 14:32 09/16/25 16:04 Heparin Sodium,Porcine 5,000 Unit/Ml Vial 80 unit/kg (7700 unit) 09/16/25 14:33 7,700 unit IVPUSH Administration ONCE ONE Sodium Chloride 1,000 mls @ 999 mls/hr 09/16/25 11:45 09/16/25 15:52 Ns IV 09/16/25 12:45 Infused .Q1H1M ORLY Infusion Iohexol 100 ml 09/16/25 13:18 09/16/25 13:19 Iohexol 350 Mg/Ml 100 Ml Infus..Btl IV 09/16/25 13:19 85 ml ONCE ONE Administration Critical Care Time Critical Care Time Critical Care Time: Yes Total Critical Care Time: 62 Attestation: Time is exclusive of separately billable procedures. Time includes: direct patient care, patient reassessment, coordination of patient care, interpretation of data (laboratory data, pulse oximetry, arterial blood gases and chest xrays), review of patient's medical records, medical consultation and documentation of patient care. Procedures excluded from critical care time: central intravenous line placement and electrocardiography. Discharge Plan Discharge Clinical Impression: Mass of uterus, Acute deep vein thrombosis (DVT) of femoral vein of right lower extremity, Occlusion of ureter by external compression
[2025-09-16 12:39] LABS: MANUAL DIFF FLAG NO
[2025-09-16 12:43] LABS: Hematocrit 41.1 % (37.0-47.0); Hemoglobin 12.6 g/dl (12.0-16.0); Imm Gran Abs Auto 0.10 X10*3/uL (0.00-0.03); Imm Gran Pct Auto 0.6 % (0.0-0.4); Lymphocytes Absolute Auto 1.6 X10*3/uL (1.2-4.9); Mean Corpuscular HGB Conc 30.7 g/dl (31.0-35.0); Mean Corpuscular Hemoglobin 23.3 pg (27.0-33.0); Mean Corpuscular Volume 76.1 fL (80.0-98.0); NRBC Abs Auto 0.000 X10*3/uL (0.0-0.012); NRBC Pct Auto 0.0 /100WBC (0.0-0.2); Platelet Count 263 X10*3/uL (160-400); Red Blood Count 5.40 X10*6/uL (4.20-5.50); White Blood Count 17.0 X10*3/uL (4.8-10.8)
--- NOTE | 2025-09-16 12:44 | PC.NURSE ---
patient a&ox3, iv inserted, labs drawn, ivf started per order.
[2025-09-16 12:56] LABS: Alanine Aminotransferase 11 U/L (0-31); Albumin Level 3.6 g/dL (3.5-5.0); Alkaline Phosphatase 112 U/L (39-117); Anion Gap 12 (12-20); Aspartate Amino Transferase 36 U/L (5-31); Blood Urea Nitrogen 20 mg/dL (9-16); Calcium 9.1 mg/dL (8.4-10.2); Carbon Dioxide 27 mmol/L (22-29); Chloride 104 mmol/L (96-108); Creatinine Clr Calc Pharmacy 34.9; Estimated Glomerular Filt Rate 29; Potassium 4.3 mmol/L (3.3-5.1); Sodium 139 mmol/L (135-145); Total Protein 6.6 g/dL (6.5-8.0)
[2025-09-16 13:03] VITALS: BP 179/88; PULSE 98; RESP 18; O2SAT 98
[2025-09-16 13:05] VITALS: TEMP 36.7
[2025-09-16] MEDS: iohexoL 350 MG/ML 100 ML INFUS..BTL IV (13:19)
--- NOTE | 2025-09-16 14:25 | PC.NURSE ---
pts ivf continue to run slowly
[2025-09-16] MEDS: cefEPime HCl/D5W 2 GM/50 ML PIGGYBACK IV (14:33)
--- NOTE | 2025-09-16 15:16 | PC.NURSE ---
ultrasound called to come get pt before heparin drip is started- PTT was just drawn by tech as well
--- NOTE | 2025-09-16 15:30 | PC.NURSE ---
This nurse spoke with ED provider and will hold off starting the heparin drip until she returns from ultrasound.
[2025-09-16 16:00] VITALS: BP 149/75; PULSE 99; RESP 22; TEMP 36.6
[2025-09-16] MEDS: Heparin Sodium,Porcine/1/2NS 25,000 UNIT/250 ML IV.SOLN 13.55 UNIT IVCONT (16:07)
--- NOTE | 2025-09-16 16:26 | PHA.MEDREC ---
Addendum entered by Raad Lr RPh 09/16/25 16:33: Reviewed by [facility] Original Note: Pharmacy Consult ? Medication Reconciliation Pharmacy has completed the medication reconciliation. Spoke with pt and she has her Rx bottle of Labetalol 300mg tabs on hand and states for the last ~1-2 months she has not been able to tolerate that medication and throws it up and dropped it down to taking one tablet daily @1300 and states she still throws them up some days; pt last took it yesterday @1300.
--- NOTE | 2025-09-16 16:29 | PC.NURSE ---
patient a&ox3, pt moved to room 16, placed on metal numerical tool programmer- pt nsr on monitor, vss, heparin drip started per order, next ptt due at 2207, pt states she has 2/10 lower extremity pain, pt has 2+ edema to BLE, rr equal/non labored- lungs clear, vss, call colin within reach, plan of care ongoing.
--- NOTE | 2025-09-16 17:00 | PM.IMHP ---
History of Present Illness Date of Service: 09/16/25 Chief Complaint: right flank/RLQ pain 65yo F with HTN and CKD unknown stage who presents with several months of intermittent but increasing pain of the R flank and RLQ and now the RLE as well. She was seen here on 08/10 in the ED and a noncontrast CT at the time showed an 11 by 8 by 8 cm psoas fluid collection; differential included hematoma, phlegmon or developing abscess. She did not want to stay for further imaging or other workup and was discharged on doxycycline and metronidazole. She stopped both after 4 days due to nausea and vomiting. Pain has increased and she has lost weight involuntarily but cannot quantify how much. Urine is darker as well. Here in the ED, a contrast CT showed increase in size of the right psoas fluid collection which enhances with contrast. The mass encases and narrows the right external iliac artery and vein and is causing a DVT of the R iliac vein extending to the femoral veins. There are enlarge right external iliac lymph nodes. The mid-right ureter is adhesed to the mass, with right hydroureteronephrosis. There are partially necrotic masses within the uterus. 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 US of the RLE showed extensive right leg DVT from the right common femoral to popliteal veins. Serum creatinine 1.73; previously 1.63 on 08/10/25 and 1.9 on 06/18/19. Review of Systems Review of Systems: Yes all other systems are reviewed and are negative PMFSH Social History Patient Tobacco Use Status: Never used Tobacco Use of substances other than those prescribed or required for medical reasons: No Advance Directives: No Advance Directives Information Provided: Yes Do you have a plan to hurt others: No Plan Nutrition Risks: No Nutritional Risk Meds Allergies Allergy/AdvReac Type Severity Reaction Status Date / Time codeine (CODEINE) Allergy Intermediate UNKNOWN Verified 09/16/25 11:36 Penicillins (PENICILLINS) Allergy Intermediate UNKNOWN Verified 09/16/25 11:36 clonidine Allergy Unknown tongue/facial Verified 09/16/25 11:36 swelling terazosin (TERAZOSIN) Allergy Unknown UNKNOWN, Verified 09/16/25 11:36 leg pain ? swelling valsartan (VALSARTAN) Allergy Unknown UNKNOWN, Verified 09/16/25 11:36 edema acetaminophen (Percocet) AdvReac Unknown N/V Verified 09/16/25 11:36 oxycodone (Percocet) AdvReac Unknown N/V Verified 09/16/25 11:36 penicillin V AdvReac Unknown N/V Verified 09/16/25 11:36 Codeine Sulfate AdvReac Unknown N/V Uncoded 08/10/25 11:15 Active Medications: Current Medications Acetaminophen (Acetaminophen 325 Mg Tablet) 650 mg PO Q6H PRN PRN Reason: Pain, Mild 1-3,fever,headache Calcium Carbonate (Calcium Carbonate 750 Mg Tab.Chew) 750 mg PO Q4H PRN PRN Reason: Heartburn Heparin Sodium (Porcine) (Heparin Sodium,Porcine 5,000 Unit/Ml Vial) 3,900 unit 40 unit/kg (3900 unit) IVPUSH PROTOCOL BOLUS PRN; Protocol PRN Reason: 40 unit/kg - Heparin Protocol Heparin Sodium (Porcine) (Heparin Sodium,Porcine 5,000 Unit/Ml Vial) 7,700 unit 80 unit/kg (7700 unit) IVPUSH PROTOCOL BOLUS PRN; Protocol PRN Reason: 80 unit/kg - Heparin Protocol Cefepime HCl (Maxipime) 2 gm in 50 mls @ 100 mls/hr IV Q12H [facility] Last Infusion: 09/16/25 15:03 Dose: Infused Heparin Sodium/Sodium Chloride (Heparin Sodium,Porcine/1/2ns) 25,000 unit in 250 mls @ 0 mls/hr IVCONT .Q0M ORLY; Protocol Last Admin: 09/16/25 16:07 Dose: 14 units/kg/hr, 13.55 mls/hr Labetalol HCl (Labetalol Hcl 100 Mg Tablet) 300 mg PO DAILY@1300 ORLY Magnesium Hydroxide (Milk Of Magnesia 30 Ml Oral.Susp) 30 ml PO DAILY PRN PRN Reason: Constipation Melatonin (Melatonin 3 Mg Tablet) 6 mg PO BEDTIME PRN PRN Reason: Insomnia Morphine Sulfate (Morphine Sulfate 4 Mg/Ml Cartridge) 2 mg IVPUSH Q3H PRN; Protocol PRN Reason: Pain, Severe (Pain Scale 7-10) Ondansetron HCl (Ondansetron Hcl 4 Mg/2 Ml Vial) 4 mg IVPUSH Q4H PRN PRN Reason: Nausea and Vomiting Sodium Chloride (0.9 % Sodium Chloride Flush 3 Ml Syringe) 3 ml IVFLUSH QSHIFT [facility] Home Medications ?Medication ?Instructions ?Recorded ?Confirmed ?Last Taken ?Type labetalol 300 mg tablet 300 mg PO DAILY@1300 09/16/25 09/16/25 09/15/25 13:00 History Physical Exam Vital Signs and Narrative: Vital Signs: Last Vital Signs Temp 97.9 F 09/16/25 16:00 Pulse 99 09/16/25 16:00 Resp 22 H 09/16/25 16:00 BP 149/75 H 09/16/25 16:00 Pulse Ox 98 09/16/25 13:03 O2 Del Method Room Air 09/16/25 16:00 BMI result Body Mass Index 37.8 Gen: in no acute distress HEENT: sclera anicteric, moist mucus membranes Neck: supple Lungs: clear to auscultation bilaterally Heart: regular rate and rhythm, no murmurs Abd: soft, RLQ tenderness and fullness, non-distended Ext: no edema Skin: warm/well-perfused Neuro: alert and oriented x3, no focal findings Psych: appropriate affect Results Labs 09/16/25 12:34 09/16/25 12:34 Labs: Laboratory Results - last 24 hr 09/16/25 09/16/25 12:34 14:31 MCV 76.1 L MCH 23.3 L MCHC 30.7 L RDW 17.0 H Plt Count 263 MPV 9.4 Immature Gran % (Auto) 0.6 H Neut % (Auto) 83.1 H Lymph % (Auto) 9.3 L [place] % (Auto) 5.5 Eos % (Auto) 1.0 Baso % (Auto) 0.5 Lymph # (Auto) 1.6 [place] # (Auto) 0.9 Eos # (Auto) 0.2 Baso # (Auto) 0.1 Abs Immat Gran (auto) 0.10 H Absolute Neuts (auto) 14.1 H Absolute Nucleated RBC 0.000 Nucleated RBC % (auto) 0.0 Anion Gap 12 Estim Creat Clear Calc 34.9 Estimated GFR 29 Random Glucose 108 Lactic Acid 1.4 Calcium 9.1 Total Bilirubin 0.4 AST 36 H ALT 11 Alkaline Phosphatase 112 C-Reactive Protein 5.84 H Total Protein 6.6 Albumin 3.6 Imaging Radiologist's Impressions: Impressions Abdomen/Pelvis CT 09/16/25 13:11 IMPRESSION: 1. Large oval heterogeneously attenuating and enhancing cystic mass involving the right psoas muscle, slightly increased in size from the recent prior examination of 08/10/2025. Given the appearance of this mass, cystic neoplasm is suspected. 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 This does not appear to represent an abscess or hematoma given the irregular enhancement pattern. 2. This mass encases and narrows the right proximal external iliac artery and vein, and is likely resulting in deep venous thrombosis of the right iliac vein extending to the imaged common and profunda femoral veins. Consider correlating with right lower extremity DVT ultrasound. 3. There are abutting enlarged right external iliac lymph nodes measuring up to 1.9 x 1.4 cm. 4. The mid right ureter appears to be adhesed to the cystic mass, with resultant moderate right hydronephrosis and proximal hydroureter. 5. Partially necrotic masses within the uterus, possibly a primary endometrial or myometrial neoplasm versus necrotic fibroids. 6. Additional ancillary findings as discussed in the body of the report. Electronically signed by: Jose David Luis MD 09/16/2025 02:05 PM EDT Venous Duplex 09/16/25 15:52 IMPRESSION: Extensive deep venous thrombosis involving the right lower extremity. Findings were communicated to Zia Colon by telephone on 09/16/2025 at 4:30 PM. 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 The psoas mass is encasing the iliac vein, causing an extensive RLE DVT. It is also adherent to the ureter, causing R hydroureteronephrosis. malignant psoas mass with hydroureteronephrosis - admit to telemetry, consult Oncology, Urology, and IR. NPO after midnight for nephrostomy tomorrow and will also need CT-guided biopsy of the psoas mass malignancy-associated DVT - heparin drip; hold at 10am for nephrostomy at 1pm tomorrow; will eventually transition to apixaban renal insufficiency - unclear baseline; consult [facility] [Nephrology] HTN - labetalol VTE ppx: on treatment-dose heparin dispo: TBD code: DNR/DNI per pt I anticipate that the patient will stay at least 2 midnights as an inpatient in the hospital due to the above reasons. It is neither reasonable nor safe to care for them in a less acute setting. Quality Stroke Does the patient have a stroke diagnosis?: No VTE Prior VTE?: No VTE Risk Level:: Medical - moderate - high VTE Device Contraindication: N/A - Device Ordered VTE Drug Contraindication: N/A - Med Ordered
[2025-09-16 17:04] LABS: INTERNATIONAL NORM RATIO 1.1 (0.9-1.1); PTT Heparin Drip 29.7 SEC (53-77.9); Prothrombin Time 12.2 SEC (10.9-12.4)
[2025-09-16 19:50] VITALS: BP 181/74; PULSE 92; RESP 16; TEMP 36.7; O2SAT 98
--- NOTE | 2025-09-16 21:50 | PC.NURSE ---
assisted to bed side commode without difficutly at this time
[2025-09-16 22:44] LABS: PTT Heparin Drip 118.3 SEC (53-77.9)
--- NOTE | 2025-09-16 23:15 | PC.NURSE ---
holding heparin at this time per protocol - will draw PTT @ 0015
[2025-09-17] VITALS (14 sets, daily range): BP systolic 155–200; BP diastolic 66–99; PULSE 84–109; RESP 14–27; TEMP 36.6–37.2; O2SAT 94–100
[2025-09-17 01:47] LABS: PTT Heparin Drip 37.4 SEC (53-77.9)
[2025-09-17] MEDS: 0.9 % Sodium Chloride Flush 3 ML SYRINGE IVFLUSH ×4 (02:00→21:22)
[2025-09-17] MEDS: cefEPime HCl/D5W 2 GM/50 ML PIGGYBACK IV ×2 (02:15→14:40)
--- NOTE | 2025-09-17 02:30 | HO.NURTONUR ---
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 The psoas mass is encasing the iliac vein, causing an extensive RLE DVT. It is also adherent to the ureter, causing R hydroureteronephrosis. malignant psoas mass with hydroureteronephrosis - admit to telemetry, consult Oncology, Urology, and IR. NPO after midnight for nephrostomy tomorrow and will also need CT-guided biopsy of the psoas mass malignancy-associated DVT - heparin drip; hold at 10am for nephrostomy at 1pm tomorrow; will eventually transition to apixaban renal insufficiency - unclear baseline; consult RTANE [Nephrology] AAx4 22g left ac 20g right ac on heparin gtt @10 PTT due at 0658 consults ordered for am with nephro, hematology and IR - NPO can get up to BSC WBC 17k creatnine 1.73
--- NOTE | 2025-09-17 02:38 | PC.NURSE ---
admit form sent
--- NOTE | 2025-09-17 06:12 | PC.NURSE ---
pts bp elevated 200/82 provider notified, ordered to give future bp meds early. Labetalol 300mg given
[2025-09-17 07:04] LABS: Hematocrit 34.6 % (37.0-47.0); Hemoglobin 10.7 g/dl (12.0-16.0); Mean Corpuscular HGB Conc 30.9 g/dl (31.0-35.0); Mean Corpuscular Hemoglobin 23.5 pg (27.0-33.0); Mean Corpuscular Volume 75.9 fL (80.0-98.0); NRBC Abs Auto 0.000 X10*3/uL (0.0-0.012); NRBC Pct Auto 0.0 /100WBC (0.0-0.2); Platelet Count 202 X10*3/uL (160-400); Red Blood Count 4.56 X10*6/uL (4.20-5.50); White Blood Count 12.7 X10*3/uL (4.8-10.8)
[2025-09-17 07:26] LABS: INTERNATIONAL NORM RATIO 1.1 (0.9-1.1); Prothrombin Time 12.2 SEC (10.9-12.4)
[2025-09-17 07:49] LABS: Anion Gap 13 (12-20); Blood Urea Nitrogen 24 mg/dL (9-16); Calcium 8.5 mg/dL (8.4-10.2); Carbon Dioxide 22 mmol/L (22-29); Chloride 110 mmol/L (96-108); Creatinine Clr Calc Pharmacy 33.6; Estimated Glomerular Filt Rate 28; Potassium 3.9 mmol/L (3.3-5.1); Sodium 141 mmol/L (135-145)
[2025-09-17 08:35] LABS: PTT Heparin Drip 43.7 SEC (53-77.9)
--- NOTE | 2025-09-17 08:59 | MHC.CM.PN ---
CM met with Patient at bedside and addressed IMM with her, providing Patient with the original and a copy has been placed on the chart. Patient lives alone in an apartment and required no services nor DME [employer]. Home/self care is the goal and CM has initiated and will follow for dc planning. PCP is Dr. Meg Colon and Sister will transport to home at dc.
--- NOTE | 2025-09-17 09:53 | HO.PM.IMPN ---
Subjective Subjective Date of Service: 09/17/25 Interval History: abd/flank pain improved; occasional hematuria; no N/V Review of Systems Review of Systems: Yes all other systems are reviewed and are negative Physical Exam Vital Signs: Vital Signs: Last Vital Signs Temp 98.9 F 09/17/25 07:43 Pulse 85 09/17/25 07:43 Resp 20 09/17/25 07:43 BP 161/66 H 09/17/25 07:43 Pulse Ox 96 09/17/25 07:43 O2 Del Method Room Air 09/17/25 07:43 BMI result Body Mass Index 37.8 Gen: in no acute distress HEENT: sclera anicteric, moist mucus membranes Neck: supple Lungs: clear to auscultation bilaterally Heart: regular rate and rhythm, no murmurs Abd: soft, RLQ tenderness and fullness, non-distended Ext: no edema Skin: warm/well-perfused Neuro: alert and oriented x3, no focal findings Psych: appropriate affect Objective Data Active Medications Acetaminophen (Acetaminophen 325 Mg Tablet) 650 mg PO Q6H PRN PRN Reason: Pain, Mild 1-3,fever,headache Calcium Carbonate (Calcium Carbonate 750 Mg Tab.Chew) 750 mg PO Q4H PRN PRN Reason: Heartburn Heparin Sodium (Porcine) (Heparin Sodium,Porcine 5,000 Unit/Ml Vial) 3,900 unit 40 unit/kg (3900 unit) IVPUSH PROTOCOL BOLUS PRN; Protocol PRN Reason: 40 unit/kg - Heparin Protocol Last Admin: 09/17/25 08:58 Dose: 3,900 unit Documented By: PEG Heparin Sodium (Porcine) (Heparin Sodium,Porcine 5,000 Unit/Ml Vial) 7,700 unit 80 unit/kg (7700 unit) IVPUSH PROTOCOL BOLUS PRN; Protocol PRN Reason: 80 unit/kg - Heparin Protocol Cefepime HCl (Maxipime) 2 gm in 50 mls @ 100 mls/hr IV Q12H [facility] Last Infusion: 09/17/25 02:52 Dose: Infused Documented By: LUÍS Heparin Sodium/Sodium Chloride (Heparin Sodium,Porcine/1/2ns) 25,000 unit in 250 mls @ 0 mls/hr IVCONT .Q0M [facility]; Protocol Last Titration: 09/17/25 08:58 Dose: 12 units/kg/hr, 11.62 mls/hr Documented By: PEG Co-signed By: KEIKO Labetalol HCl (Labetalol Hcl 100 Mg Tablet) 300 mg PO DAILY@1300 [facility] Last Admin: 09/17/25 06:08 Dose: 300 mg Documented By: INDIO Magnesium Hydroxide (Milk Of Magnesia 30 Ml Oral.Susp) 30 ml PO DAILY PRN PRN Reason: Constipation Melatonin (Melatonin 3 Mg Tablet) 6 mg PO BEDTIME PRN PRN Reason: Insomnia Morphine Sulfate (Morphine Sulfate 4 Mg/Ml Cartridge) 2 mg IVPUSH Q3H PRN; Protocol PRN Reason: Pain, Severe (Pain Scale 7-10) Ondansetron HCl (Ondansetron Hcl 4 Mg/2 Ml Vial) 4 mg IVPUSH Q4H PRN PRN Reason: Nausea and Vomiting Sodium Chloride (0.9 % Sodium Chloride Flush 3 Ml Syringe) 3 ml IVFLUSH QSHIFT [facility] Last Admin: 09/17/25 09:02 Dose: 3 ml Documented By: PEG Labs 09/17/25 06:39 09/17/25 06:39 Labs: Laboratory Results - last 24 hr 09/16/25 09/16/25 09/16/25 12:34 14:31 15:15 MCV 76.1 L MCH 23.3 L MCHC 30.7 L RDW 17.0 H Plt Count 263 MPV 9.4 Immature Gran % (Auto) 0.6 H Neut % (Auto) 83.1 H Lymph % (Auto) 9.3 L Amador % (Auto) 5.5 Eos % (Auto) 1.0 Baso % (Auto) 0.5 Lymph # (Auto) 1.6 Amador # (Auto) 0.9 Eos # (Auto) 0.2 Baso # (Auto) 0.1 Abs Immat Gran (auto) 0.10 H Absolute Neuts (auto) 14.1 H Absolute Nucleated RBC 0.000 Nucleated RBC % (auto) 0.0 PT 12.2 INR 1.1 aPTT Heparin Protocol 29.7 L Anion Gap 12 Estim Creat Clear Calc 34.9 Estimated GFR 29 Random Glucose 108 Lactic Acid 1.4 Calcium 9.1 Total Bilirubin 0.4 AST 36 H ALT 11 Alkaline Phosphatase 112 C-Reactive Protein 5.84 H Total Protein 6.6 Albumin 3.6 09/16/25 09/17/25 09/17/25 21:59 00:58 06:39 MCV 75.9 L MCH 23.5 L MCHC 30.9 L RDW 17.2 H Plt Count 202 MPV 9.8 Immature Gran % (Auto) Neut % (Auto) Lymph % (Auto) Amador % (Auto) Eos % (Auto) Baso % (Auto) Lymph # (Auto) Amador # (Auto) Eos # (Auto) Baso # (Auto) Abs Immat Gran (auto) Absolute Neuts (auto) Absolute Nucleated RBC 0.000 Nucleated RBC % (auto) 0.0 PT 12.2 INR 1.1 aPTT Heparin Protocol 118.3 H* D 37.4 L D Anion Gap 13 Estim Creat Clear Calc 33.6 Estimated GFR 28 Random Glucose 115 Lactic Acid Calcium 8.5 D Total Bilirubin AST ALT Alkaline Phosphatase C-Reactive Protein Total Protein Albumin 09/17/25 07:49 MCV MCH MCHC RDW Plt Count MPV Immature Gran % (Auto) Neut % (Auto) Lymph % (Auto) Amador % (Auto) Eos % (Auto) Baso % (Auto) Lymph # (Auto) Amador # (Auto) Eos # (Auto) Baso # (Auto) Abs Immat Gran (auto) Absolute Neuts (auto) Absolute Nucleated RBC Nucleated RBC % (auto) PT INR aPTT Heparin Protocol 43.7 L Anion Gap Estim Creat Clear Calc Estimated GFR Random Glucose Lactic Acid Calcium Total Bilirubin AST ALT Alkaline Phosphatase C-Reactive Protein Total Protein Albumin Assessment and Plan (1) Occlusion of ureter by external compression: Status: Acute (2) Mass of uterus: Status: Acute (3) Acute deep vein thrombosis (DVT) of femoral vein of right lower extremity: Status: Acute Plan d2 for 65yo F with CKD and HTN presenting with weight loss and R abdominal/flank pain and found to have a 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 The psoas mass is encasing the iliac vein, causing an extensive RLE DVT. It is also adherent to the ureter, causing R hydroureteronephrosis. malignant psoas mass with hydroureteronephrosis - Oncology and Urology consults pending; R nephrostomy today [hold heparin 90 prior], CT-guided biopsy of psoas mass tomorrow malignancy-associated DVT - heparin drip; hold for procedures as above; will eventually transition to apixaban renal insufficiency - unclear baseline; Nephro consult pending HTN - labetalol VTE ppx: on treatment-dose heparin dispo: TBD In my clinical judgment, the patient requires continued inpatient hospitalization for the following reasons: nephrostomy, biopsy, heparin drip Total time managing care of this patient today: 45 minutes. Quality Stroke Does the patient have a stroke diagnosis?: No VTE Prior VTE?: No VTE Risk Level:: Medical - moderate - high VTE Device Contraindication: N/A - Device Ordered VTE Drug Contraindication: N/A - Med Ordered
--- NOTE | 2025-09-17 11:30 | PC.NURSE ---
Addendum entered by Rubia Blair RN 09/17/25 17:43: at 1730, Heparin qtt restarted per Dr. Gomez' order at 16un/kg/hr and bolus given; see MAR Addendum entered by Rubia Blair RN 09/17/25 14:30: Pt back on the unit from OR at 1430, s/p Nephrostomy, nepho tube placement to R Kidney, dressing on CDI; Per Dr. Gomez, keep heparin qtt paused for 2 more hr. redraw PTT at 1630 and restart qtt then. Original Note: per 's order, Hep qtt paused at 1130; Nephrostomy procedure pending at 1300;
[2025-09-17 16:47] LABS: Partial Thromboplastin Time 28.2 SEC (26.7-34.1)
--- NOTE | 2025-09-17 18:49 | PM.CNNEP ---
History of Present Illness Reason for Consult Consult date: 09/17/25 Reason for consult: SARAI/CKD Chief Complaint Chief complaint: Ureteral obstruction,uterine mass History of Present Illness Narrative: 65 Y/O F SARAI/CKD in setting of R Hydrourternephrosis REC reviewed and PT seen and H/O CKD 3 Review of Systems Review of Systems Yes all other systems are reviewed and are negative Constitutional: Reports as per [facility] Social History Social History Household Members: None Housing: Apartment Do you presently have visiting nurse or other home services: No Patient Tobacco Use Status: Never used Tobacco Use of substances other than those prescribed or required for medical reasons: No Currently Displaying Signs/Symptoms of Drug Intoxication Withdrawal: No Have you been hit, kicked, punched, or otherwise hurt by someone within the past year? If so, by whom?: No Are you made to feel afraid or neglected: No Advance Directives: No Advance Directives Information Provided: Yes Do you have a plan to hurt others: No Plan Recently lost weight without trying: Yes How much weight loss: Unsure Eating poorly because of decreased appetite: Yes Nutrition screen score: 5 Nutrition Risks: No Nutritional Risk Patient : No service: No Meds Allergies Allergy/AdvReac Type Severity Reaction Status Date / Time codeine (CODEINE) Allergy Intermediate UNKNOWN Verified 09/16/25 11:36 Penicillins (PENICILLINS) Allergy Intermediate UNKNOWN Verified 09/16/25 11:36 clonidine Allergy Unknown tongue/facial Verified 09/16/25 11:36 swelling terazosin (TERAZOSIN) Allergy Unknown UNKNOWN, Verified 09/16/25 11:36 leg pain ? swelling valsartan (VALSARTAN) Allergy Unknown UNKNOWN, Verified 09/16/25 11:36 edema acetaminophen (Percocet) AdvReac Unknown N/V Verified 09/16/25 11:36 oxycodone (Percocet) AdvReac Unknown N/V Verified 09/16/25 11:36 penicillin V AdvReac Unknown N/V Verified 09/16/25 11:36 Codeine Sulfate AdvReac Unknown N/V Uncoded 08/10/25 11:15 Active Medications: Current Medications Acetaminophen (Acetaminophen 325 Mg Tablet) 650 mg PO Q6H PRN PRN Reason: Pain, Mild 1-3,fever,headache Calcium Carbonate (Calcium Carbonate 750 Mg Tab.Chew) 750 mg PO Q4H PRN PRN Reason: Heartburn Heparin Sodium (Porcine) (Heparin Sodium,Porcine 5,000 Unit/Ml Vial) 3,900 unit 40 unit/kg (3900 unit) IVPUSH PROTOCOL BOLUS PRN; Protocol PRN Reason: 40 unit/kg - Heparin Protocol Last Admin: 09/17/25 08:58 Dose: 3,900 unit Heparin Sodium (Porcine) (Heparin Sodium,Porcine 5,000 Unit/Ml Vial) 7,700 unit 80 unit/kg (7700 unit) IVPUSH PROTOCOL BOLUS PRN; Protocol PRN Reason: 80 unit/kg - Heparin Protocol Last Admin: 09/17/25 17:38 Dose: 7,700 unit Cefepime HCl (Maxipime) 2 gm in 50 mls @ 100 mls/hr IV Q12H [facility] Last Infusion: 09/17/25 15:10 Dose: Infused Heparin Sodium/Sodium Chloride (Heparin Sodium,Porcine/1/2ns) 25,000 unit in 250 mls @ 0 mls/hr IVCONT .Q0M [facility]; Protocol Last Titration: 09/17/25 17:36 Dose: 16 units/kg/hr, 15.49 mls/hr Labetalol HCl (Labetalol Hcl 100 Mg Tablet) 300 mg PO DAILY@1300 [facility] Last Admin: 09/17/25 06:08 Dose: 300 mg Magnesium Hydroxide (Milk Of Magnesia 30 Ml Oral.Susp) 30 ml PO DAILY PRN PRN Reason: Constipation Melatonin (Melatonin 3 Mg Tablet) 6 mg PO BEDTIME PRN PRN Reason: Insomnia Morphine Sulfate (Morphine Sulfate 4 Mg/Ml Cartridge) 2 mg IVPUSH Q3H PRN; Protocol PRN Reason: Pain, Severe (Pain Scale 7-10) Ondansetron HCl (Ondansetron Hcl 4 Mg/2 Ml Vial) 4 mg IVPUSH Q4H PRN PRN Reason: Nausea and Vomiting Sodium Chloride (0.9 % Sodium Chloride Flush 3 Ml Syringe) [facility] Last Admin: 09/17/25 17:42 Dose: 3 ml Home Medications ?Medication ?Instructions ?Recorded ?Confirmed ?Last Taken ?Type labetalol 300 mg tablet 300 mg PO DAILY@1300 09/16/25 09/16/25 09/15/25 13:00 History Physical Exam Vital Signs: Last Vital Signs Temp 97.8 F 09/17/25 15:34 Pulse 84 09/17/25 15:34 Resp 18 09/17/25 15:34 BP 172/80 H 09/17/25 15:34 Pulse Ox 94 09/17/25 15:34 O2 Del Method Room Air 09/17/25 15:34 O2 Flow Rate 2 09/17/25 13:55 BMI result Body Mass Index 37.8 Results Lab Results 09/17/25 06:39 09/17/25 06:39 Lab results: Chemistry 09/16/25 09/17/25 12:34 06:39 Sodium 139 141 Potassium 4.3 3.9 Carbon Dioxide 27 22 BUN 20 H 24 H Creatinine 1.73 H 1.80 H Calcium 9.1 8.5 D Hematology 09/16/25 09/17/25 12:34 06:39 WBC 17.0 H 12.7 H Hgb 12.6 10.7 L Plt Count 263 202 Urine Studies 09/17/25 12:40 Urine Creatinine 101.95 Assessment and Plan (1) Occlusion of ureter by external compression: Status: Acute (2) Mass of uterus: Status: Acute (3) Acute deep vein thrombosis (DVT) of femoral vein of right lower extremity: Status: Acute Plan SARAI on CKD vs CKD: records from 2019 reveals SCr 1.8 to 2.1 suggest adv CKD and prior w/u was HTN and now with R Obs Obs R Kidney: IR to place NTube DVT Ques Psoas tumor vs infection vs other HTN REC: cont tot rack renal func, avoid NToxins; titrate up BP meds Procedures Date of Service Date of Service: 09/17/25
[2025-09-17] MEDS: Heparin Sodium,Porcine/1/2NS 25,000 UNIT/250 ML IV.SOLN 15.49 UNIT IVCONT (21:22)
--- NOTE | 2025-09-17 22:12 | PC.NURSE ---
400mL punch colored drainage emptied from (r) nephrostomy bag
[2025-09-17 23:40] LABS: PTT Heparin Drip 99.7 SEC (53-77.9)
[2025-09-18] VITALS (12 sets, daily range): BP systolic 154–195; BP diastolic 60–90; PULSE 76–90; RESP 17–31; TEMP 36.2–36.8; O2SAT 93–100
[2025-09-18] MEDS: cefEPime HCl/D5W 2 GM/50 ML PIGGYBACK IV (01:12)
[2025-09-18 08:05] LABS: Hematocrit 33.6 % (37.0-47.0); Hemoglobin 10.5 g/dl (12.0-16.0); Mean Corpuscular HGB Conc 31.3 g/dl (31.0-35.0); Mean Corpuscular Hemoglobin 23.4 pg (27.0-33.0); Mean Corpuscular Volume 74.8 fL (80.0-98.0); NRBC Abs Auto 0.000 X10*3/uL (0.0-0.012); NRBC Pct Auto 0.0 /100WBC (0.0-0.2); Platelet Count 190 X10*3/uL (160-400); Red Blood Count 4.49 X10*6/uL (4.20-5.50); White Blood Count 13.5 X10*3/uL (4.8-10.8)
[2025-09-18 08:14] LABS: PTT Heparin Drip 75.7 SEC (53-77.9)
[2025-09-18 08:17] LABS: Anion Gap 14 (12-20); Blood Urea Nitrogen 24 mg/dL (9-16); Calcium 8.4 mg/dL (8.4-10.2); Carbon Dioxide 22 mmol/L (22-29); Chloride 109 mmol/L (96-108); Creatinine Clr Calc Pharmacy 35.1; Estimated Glomerular Filt Rate 30; Potassium 3.8 mmol/L (3.3-5.1); Sodium 141 mmol/L (135-145)
--- NOTE | 2025-09-18 08:33 | PC.NURSE ---
Addendum entered by Rubia Blair RN 09/18/25 14:05: aware and confirmed Heparin qtt to be started at 13un/kg/hr. Ptt ordered for 1999. Addendum entered by Rubia Blair RN 09/18/25 13:53: Ptt came back at 31.4, per pharmacy restart drip at the previous rate which is 13units/kg/hr and redraw ptt 6 hours from start of drip. See MAR for further details Addendum entered by Rubia Bliar RN 09/18/25 12:59: Pt back on the unit at 1100; s/p CT guided Biopsy; per , Heparin qtt to be started in 2 hr. Original Note: Heparin qtt paused at 0830 per 's order; 1000 procedure pending
--- NOTE | 2025-09-18 09:47 | PM.HEMONCCN ---
Subjective - Subjective Chief complaint: Right pelvic pain and right leg swelling Patient: new to practice Consult date: 09/18/25 Primary Care Provider: Meg Davison MD Journalist Utilized?: No - Azeri Speaking HPI - Consult Narrative Reason for consult: Uterine and rt psoas mass, right lower extremity DVT Narrative: Deonna Bloom is a 65 year old female was not had a PCP visit in many years presented to ED with complaints of worsening right leg pain and swelling. She also reports right lower quadrant pain and swelling for several months. She reports loss of appetite and weight loss for more than 6 months but can not quantify the weight loss. She says she has a history of renal failure secondary to hypertension diagnosed in 2014. She was seen here on 08/10 in the ED and a noncontrast CT at the time showed an 11 by 8 by 8 cm psoas fluid collection; differential included hematoma, phlegmon or developing abscess. She did not want to stay for further imaging or other workup and was discharged on doxycycline and metronidazole. She stopped both after 4 days due to nausea and vomiting. Imaging on 09/16/2025, nontrast CT showed increase in size of the right psoas fluid collection which enhances with contrast. The mass encases and narrows the right external iliac artery and vein and is causing a DVT of the R iliac vein extending to the femoral veins. There are enlarge right external iliac lymph nodes. The mid-right ureter is adhesed to the mass, with right hydroureteronephrosis. There are partially necrotic masses within the uterus. 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 US of the RLE showed extensive right leg DVT from the right common femoral to popliteal veins. Serum creatinine 1.73; previously 1.63 on 08/10/25 and 1.9 on 06/18/19. Patient has had right nephrostomy tube placed and she reports improvement in right pelvic pain. She has been started on anticoagulation, she has persistent swelling of the right lower extremity. Family history significant for colon cancer in her mother who is still alive, lymphoma in maternal grandfather and a blood cancer in a paternal grandmother. She lives alone, she is retired. No history of smoking or alcohol use. She has been retired for a few years. 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 Review of Systems - Constitutional Reports as per HPI - Cardiovascular Reports no additional cardiovascular complaints - Respiratory Reports no additional respiratory complaints - Gastrointestinal Reports no additional gastrointestinal complaints [facility] Medical History: Medical History (Last Updated 09/18/25 @ 10:03 by Anna Pena MD) HTN (hypertension) Renal insufficiency Social History: Social History (Last Reviewed 09/16/25 @ 17:12 by Pineda Gomez MD) Living Situation History: Household Members: None Housing: Apartment Do you presently have visiting nurse or other home services: No Alcohol History Details: 1. How often do you have a drink containing alcohol?: a. Never 3. How often do you have six or more drinks on one occasion?: a. Never AUDIT-C Alcohol total score: 0 Currently Displaying Signs/Symptoms of Alcohol Withdrawal: No Tobacco History: Patient Tobacco Use Status: Never used Tobacco Substance Use History: Use of substances other than those prescribed or required for medical reasons: No Currently Displaying Signs/Symptoms of Drug Intoxication Withdrawal: No Domestic Abuse History: Have you been hit, kicked, punched, or otherwise hurt by someone within the past year? If so, by whom?: No Are you made to feel afraid or neglected: No Advance Directives: Advance Directives: No Advance Directives Information Provided: Yes Homicidal Assessment: Do you have a plan to hurt others: No Plan Nutrition Assessment: Recently lost weight without trying: Yes How much weight loss: Unsure Eating poorly because of decreased appetite: Yes Nutrition screen score: 5 Nutrition Risks: No Nutritional Risk Patient : No Occupation Assessmet: service: No Home Medications and Allergies Current Medications: Current Medications Acetaminophen (Acetaminophen 325 Mg Tablet) 650 mg PO Q6H PRN PRN Reason: Pain, Mild 1-3,fever,headache Calcium Carbonate (Calcium Carbonate 750 Mg Tab.Chew) 750 mg PO Q4H PRN PRN Reason: Heartburn Heparin Sodium (Porcine) (Heparin Sodium,Porcine 5,000 Unit/Ml Vial) 3,900 unit 40 unit/kg (3900 unit) IVPUSH PROTOCOL BOLUS PRN; Protocol PRN Reason: 40 unit/kg - Heparin Protocol Last Admin: 09/17/25 08:58 Dose: 3,900 unit Heparin Sodium (Porcine) (Heparin Sodium,Porcine 5,000 Unit/Ml Vial) 7,700 unit 80 unit/kg (7700 unit) IVPUSH PROTOCOL BOLUS PRN; Protocol PRN Reason: 80 unit/kg - Heparin Protocol Last Admin: 09/17/25 17:38 Dose: 7,700 unit Cefepime HCl (Maxipime) 2 gm in 50 mls @ 100 mls/hr IV Q12H [facility] Last Infusion: 09/18/25 01:45 Dose: Infused Heparin Sodium/Sodium Chloride (Heparin Sodium,Porcine/1/2ns) 25,000 unit in 250 mls @ 0 mls/hr IVCONT .Q0M [facility]; Protocol On Hold: 09/18/25 08:30 Last Titration: 09/18/25 08:30 Dose: 0 units/kg/hr, 0 mls/hr Labetalol HCl (Labetalol Hcl 100 Mg Tablet) 300 mg PO BID [facility] Last Admin: 09/18/25 09:09 Dose: 300 mg Magnesium Hydroxide (Milk Of Magnesia 30 Ml Oral.Susp) 30 ml PO DAILY PRN PRN Reason: Constipation Melatonin (Melatonin 3 Mg Tablet) 6 mg PO BEDTIME PRN PRN Reason: Insomnia Morphine Sulfate (Morphine Sulfate 4 Mg/Ml Cartridge) 2 mg IVPUSH Q3H PRN; Protocol PRN Reason: Pain, Severe (Pain Scale 7-10) Ondansetron HCl (Ondansetron Hcl 4 Mg/2 Ml Vial) 4 mg IVPUSH Q4H PRN PRN Reason: Nausea and Vomiting Sodium Chloride (0.9 % Sodium Chloride Flush 3 Ml Syringe) 3 ml IVFLUSH QSHIFT [facility] Last Admin: 09/18/25 07:39 Dose: Not Given Home Medications ?Medication ?Instructions ?Recorded ?Confirmed ?Type labetalol 300 mg tablet 300 mg PO DAILY@1300 09/16/25 09/16/25 History Allergies Allergy/AdvReac Type Severity Reaction Status Date / Time codeine (CODEINE) Allergy Intermediate UNKNOWN Verified 09/16/25 11:36 Penicillins (PENICILLINS) Allergy Intermediate UNKNOWN Verified 09/16/25 11:36 clonidine Allergy Unknown tongue/facial Verified 09/16/25 11:36 swelling terazosin (TERAZOSIN) Allergy Unknown UNKNOWN, Verified 09/16/25 11:36 leg pain ? swelling valsartan (VALSARTAN) Allergy Unknown UNKNOWN, Verified 09/16/25 11:36 edema acetaminophen (Percocet) AdvReac Unknown N/V Verified 09/16/25 11:36 amlodipine AdvReac Unknown Difficulty Verified 09/18/25 00:34 Breathing oxycodone (Percocet) AdvReac Unknown N/V Verified 09/16/25 11:36 penicillin V AdvReac Unknown N/V Verified 09/16/25 11:36 Codeine Sulfate AdvReac Unknown N/V Uncoded 08/10/25 11:15 Physical Exam Vital signs: Vital Signs Temp 97.1 F 09/18/25 08:00 Pulse 84 09/18/25 09:09 Resp 18 09/18/25 08:00 BP 195/90 H 09/18/25 09:09 Pulse Ox 93 09/18/25 08:00 O2 Del Method Room Air 09/18/25 08:00 O2 Flow Rate 2 09/17/25 13:55 Intake & Output 09/17/25 09/18/25 09/18/25 18:59 06:59 18:59 Intake Total 197.746 / 350.588 152.842 / 350.588 84.915 / 84.915 Output Total 400 / 400 Balance 197.746 / -49.412 -247.158 / -49.412 84.915 / 84.915 Urine Output (Average ml/kg/hr) 0.00 0.00 Intake: Intake, IV Amount 197.746 / 350.588 152.842 / 350.588 84.915 / 84.915 ceFAZolin Sodium/Dextrose,Iso 2 50 / 50 gm In 50 ml @ 100 mls/hr IV ONCE ONE Rx#:[id number] cefEPime HCl/D5W 2 gm In 50 ml 50 / 100 50 / 100 @ 100 mls/hr IV Q12H [facility] Rx#: [id number] Heparin Sodium,Porcine/1/2NS 25 97.746 / 200.588 102.842 / 200.588 84.915 / 84.915 ,000 unit In 250 ml @ Per Protocol IVCONT .Q0M [facility] Rx#: [id number] Output: Output, Urine Amount 0 / 0 Output, Other Amount 400 / 400 Other: NPO Yes: NPO till 1300 Breakfast % Eaten 0% Lunch % Eaten 0% Eating (Feeding) Ability Independent Number of Unmeasured Voids 1 Urine Bedside Commode Urine Color Yellow Last Bowel Movement 09/16/25 09/16/25 09/16/25 Weight 96.8 kg - Constitutional Present: no acute distress - Routine HEENT Exam Head: Present: normal inspection Eye: Present: EOMI, PERRL - Routine Neck Exam Present: supple. Absent: lymphadenopathy - Routine Respiratory Exam Present: CTAB. Absent: accessory muscle use - Routine Cardiovascular Exam Cardiovascular: Present: RRR, S1, S2 - Routine Abdominal Exam Present: soft. Absent: guarding - Routine Extremities Exam Present: pulses intact, pedal edema Comments: Extensive swelling of the right lower extremity - Routine Skin Exam Present: intact. Absent: jaundice - Routine Neurological Exam Present: alert, oriented X3 Hem/Onc Consult Result - Labs CBC & Chem 7: 09/18/25 07:57 09/18/25 07:57 Labs: Short CBC 09/18/25 Range/Units 07:57 WBC 13.5 H (4.8-10.8) X10*3/uL Hgb 10.5 L (12.0-16.0) g/dl Hct 33.6 L (37.0-47.0) % Plt Count 190 (160-400) X10*3/uL BMP 09/18/25 07:57 Sodium 141 Potassium 3.8 Chloride 109 H Carbon Dioxide 22 BUN 24 H Creatinine 1.72 H Calcium 8.4 Assessment and Plan Patient Active problem list reviewed?: Yes (1) Mass of uterus Status: Acute Assessment and plan: 1. This is a 65-year-old woman with past medical history significant for hypertension and chronic renal failure who is presenting with large cystic mass involving right psoas muscle which encases right proximal external iliac artery and vein, extensive right lower extremity DVT. Multiple and large right external iliac lymph nodes and partially necrotic masses within the uterus read as possible primary endometrial neoplasm versus necrotic fibroids. The right psoas mass measures 7.9 x 8.2 x 11 cm and external iliac lymph node measures 1.2 x 1 cm. Patient has had right nephrostomy tube placed on 09/17/2025 for right hydronephrosis. She is scheduled for CT-guided biopsy of the right psoas mass. Depending on pathology findings, further recommendations will be made. Patient will need long-term anticoagulation, she can be started on Eliquis after surgical procedure. She can follow up with oncology upon discharge. Thank you for the consultation. - Time Spent With Patient Time Spent with Patient (in minutes): 20 Additional Coding: - Additional E/M codes Complex E/M visit Add On: CPT G2211
--- NOTE | 2025-09-18 10:37 | P.CNUR_ITS ---
History of Present Illness Consult details Consult date: 09/18/25 Narrative: CC: right ureteric obstruction 65-year-old female Presentation to hospital with increasing right flank pain, right lower quadrant and right lower extremity discomfort Had been seen in July and a noncontrast CT showed 11 by cm right psoas fluid collection At that time had been discharged with treatment for possible abscess. She had not wanted to stay further imaging. Current presentation has involuntary weight loss Emergency room evaluation showed significant increase in right psoas fluid collection with mass encasing right external iliac artery and vein and DVT of the right iliac vein extending to the femoral veins. Enlarged right iliac lymph nodes. The mid right ureter appears to be distorted with mass effect causing proximal right hydro uretero nephrosis. 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 Initial creatinine 1.8 however baseline has mild CKD and this is not a large variation. Imaging personally reviewed in case discussed with admitting hospitalist. Recommendation for percutaneous nephrostomy placement given degree of distortion of lower right ureter. We will follow Review of Systems 2 Constitutional: Constitutional: Reports as per HPI and Reports no additional constitutional complaints Cardiovascular: Cardiovascular: Reports as per HPI and Reports no additional cardiovascular complaints Respiratory: Respiratory: Reports as per HPI and Reports no additional respiratory complaints Gastrointestinal: Gastrointestinal: Reports as per HPI and Reports no additional gastrointestinal complaints Genitourinary: Genitourinary: Reports as per HPI Musculoskeletal: Musculoskeletal: Reports no additional musculoskeletal complaints and Reports as per HPI Neurologic: Reports system reviewed and no additional complaints, except as documented and Reports as per HPI [facility] Past Medical History Medical History (Updated 09/18/25 @ 10:36 by Anna Pena MD) HTN (hypertension) Renal insufficiency Social History Social History Household Members: None Housing: Apartment Do you presently have visiting nurse or other home services: No Comment: low fall risk Patient Tobacco Use Status: Never used Tobacco Use of substances other than those prescribed or required for medical reasons: No Currently Displaying Signs/Symptoms of Drug Intoxication Withdrawal: No Have you been hit, kicked, punched, or otherwise hurt by someone within the past year? If so, by whom?: No Are you made to feel afraid or neglected: No Advance Directives: No Advance Directives Information Provided: Yes Do you have a plan to hurt others: No Plan Recently lost weight without trying: Yes How much weight loss: Unsure Eating poorly because of decreased appetite: Yes Nutrition screen score: 5 Nutrition Risks: No Nutritional Risk Patient : No service: No Meds Allergies Allergy/AdvReac Type Severity Reaction Status Date / Time codeine (CODEINE) Allergy Intermediate UNKNOWN Verified 09/16/25 11:36 Penicillins (PENICILLINS) Allergy Intermediate UNKNOWN Verified 09/16/25 11:36 clonidine Allergy Unknown tongue/facial Verified 09/16/25 11:36 swelling terazosin (TERAZOSIN) Allergy Unknown UNKNOWN, Verified 09/16/25 11:36 leg pain ? swelling valsartan (VALSARTAN) Allergy Unknown UNKNOWN, Verified 09/16/25 11:36 edema acetaminophen (Percocet) AdvReac Unknown N/V Verified 09/16/25 11:36 amlodipine AdvReac Unknown Difficulty Verified 09/18/25 00:34 Breathing oxycodone (Percocet) AdvReac Unknown N/V Verified 09/16/25 11:36 penicillin V AdvReac Unknown N/V Verified 09/16/25 11:36 Codeine Sulfate AdvReac Unknown N/V Uncoded 08/10/25 11:15 Active Medications: Current Medications Acetaminophen (Acetaminophen 325 Mg Tablet) 650 mg PO Q6H PRN PRN Reason: Pain, Mild 1-3,fever,headache Calcium Carbonate (Calcium Carbonate 750 Mg Tab.Chew) 750 mg PO Q4H PRN PRN Reason: Heartburn Heparin Sodium (Porcine) (Heparin Sodium,Porcine 5,000 Unit/Ml Vial) 3,900 unit 40 unit/kg (3900 unit) IVPUSH PROTOCOL BOLUS PRN; Protocol PRN Reason: 40 unit/kg - Heparin Protocol Last Admin: 09/17/25 08:58 Dose: 3,900 unit Heparin Sodium (Porcine) (Heparin Sodium,Porcine 5,000 Unit/Ml Vial) 7,700 unit 80 unit/kg (7700 unit) IVPUSH PROTOCOL BOLUS PRN; Protocol PRN Reason: 80 unit/kg - Heparin Protocol Last Admin: 09/17/25 17:38 Dose: 7,700 unit Cefepime HCl (Maxipime) 2 gm in 50 mls @ 100 mls/hr IV Q12H [facility] Last Infusion: 09/18/25 01:45 Dose: Infused Heparin Sodium/Sodium Chloride (Heparin Sodium,Porcine/1/2ns) 25,000 unit in 250 mls @ 0 mls/hr IVCONT .Q0M [facility]; Protocol On Hold: 09/18/25 08:30 Last Titration: 09/18/25 08:30 Dose: 0 units/kg/hr, 0 mls/hr Labetalol HCl (Labetalol Hcl 100 Mg Tablet) 300 mg PO BID [facility] Last Admin: 09/18/25 09:09 Dose: 300 mg Magnesium Hydroxide (Milk Of Magnesia 30 Ml Oral.Susp) 30 ml PO DAILY PRN PRN Reason: Constipation Melatonin (Melatonin 3 Mg Tablet) 6 mg PO BEDTIME PRN PRN Reason: Insomnia Morphine Sulfate (Morphine Sulfate 4 Mg/Ml Cartridge) 2 mg IVPUSH Q3H PRN; Protocol PRN Reason: Pain, Severe (Pain Scale 7-10) Ondansetron HCl (Ondansetron Hcl 4 Mg/2 Ml Vial) 4 mg IVPUSH Q4H PRN PRN Reason: Nausea and Vomiting Sodium Chloride (0.9 % Sodium Chloride Flush 3 Ml Syringe) 3 ml IVFLUSH QSHIFT [facility] Last Admin: 09/18/25 07:39 Dose: Not Given Home Medications ?Medication ?Instructions ?Recorded ?Confirmed ?Last Taken ?Type labetalol 300 mg tablet 300 mg PO DAILY@1300 5 09/16/25 09/15/25 13:00 History Physical Exam 2 Vital Signs: Vital Signs: Last Vital Signs Temp 97.1 F 09/18/25 08:00 Pulse 90 09/18/25 10:35 Resp 31 H 09/18/25 10:35 BP 173/78 H 09/18/25 10:35 Pulse Ox 100 09/18/25 10:35 O2 Del Method Nasal Cannula 09/18/25 10:35 O2 Flow Rate 2 09/18/25 10:35 BMI result Body Mass Index 37.8 Const: General: cooperative, healthy appearing, comfortable and no acute distress Orientation/consciousness: patient oriented x3 HEENT: Face and sinus: Yes normal facial exam Mouth: moist mucous membranes Neck: Neck: Yes normal visual inspection, Yes full ROM and Yes trachea midline Chest: Chest palpation & inspection: normal inspection of the chest Resp: Effort & Inspection: normal respiratory effort, able to speak in complete sentences and no respiratory distress GI: Inspection: Yes normal to inspection Back/Spine/Pelvis: Cervical Spine: normal cervical lordosis Thoracic/Lumbar Spine: thoracic and lumbar spine normal to inspection Skin: General skin exam: no rashes or lesions noted Neuro: General: patient oriented x3, tone normal and moves all extremities Extrem: General: Yes normal to inspection and Yes capillary refill normal Results Labs 09/18/25 07:57 09/18/25 07:57 Labs: Abnormal lab results 09/17/25 09/18/25 Range/Units 23:25 07:57 WBC 13.5 H (4.8-10.8) X10*3/uL Hgb 10.5 L (12.0-16.0) g/dl Hct 33.6 L (37.0-47.0) % MCV 74.8 L (80.0-98.0) fL MCH 23.4 L (27.0-33.0) pg RDW 17.2 H (11.0-16.0) % aPTT Heparin Protocol 99.7 H D (53-77.9) SEC Chloride 109 H (96-108) mmol/L BUN 24 H (9-16) mg/dL Creatinine 1.72 H (0.5-1.4) mg/dL Short CBC 09/18/25 Range/Units 07:57 WBC 13.5 H (4.8-10.8) X10*3/uL Hgb 10.5 L (12.0-16.0) g/dl Hct 33.6 L (37.0-47.0) % Plt Count 190 (160-400) X10*3/uL BMP 09/18/25 07:57 Sodium 141 Potassium 3.8 Chloride 109 H Carbon Dioxide 22 BUN 24 H Creatinine 1.72 H Calcium 8.4 All other labs normal. Assessment and Plan (1) Occlusion of ureter by external compression: Status: Acute Plan Right PCN with ongoing assessment Procedures Date of Service Date of Service: 09/18/25
--- NOTE | 2025-09-18 11:41 | HO.PM.IMPN ---
Subjective Subjective Date of Service: 09/18/25 Interval History: nephrostomy done yesterday minimal pain, no N/V to undergo CT-guided biopsy today Review of Systems Review of Systems: Yes all other systems are reviewed and are negative Physical Exam Vital Signs: Vital Signs: Last Vital Signs Temp 97.1 F 09/18/25 08:00 Pulse 78 09/18/25 10:44 Resp 27 H 09/18/25 10:44 BP 166/79 H 09/18/25 10:44 Pulse Ox 97 09/18/25 10:44 O2 Del Method Room Air 09/18/25 10:44 O2 Flow Rate 2 09/18/25 10:40 BMI result Body Mass Index 37.8 Gen: in no acute distress HEENT: sclera anicteric, moist mucus membranes Neck: supple Lungs: clear to auscultation bilaterally Heart: regular rate and rhythm, no murmurs Abd: soft, RLQ tenderness and fullness, non-distended : R nephrostomy with pink urine Ext: no edema Skin: warm/well-perfused Neuro: alert and oriented x3, no focal findings Psych: appropriate affect Objective Data Active Medications Acetaminophen (Acetaminophen 325 Mg Tablet) 650 mg PO Q6H PRN PRN Reason: Pain, Mild 1-3,fever,headache Calcium Carbonate (Calcium Carbonate 750 Mg Tab.Chew) 750 mg PO Q4H PRN PRN Reason: Heartburn Heparin Sodium (Porcine) (Heparin Sodium,Porcine 5,000 Unit/Ml Vial) 3,900 unit 40 unit/kg (3900 unit) IVPUSH PROTOCOL BOLUS PRN; Protocol PRN Reason: 40 unit/kg - Heparin Protocol Last Admin: 09/17/25 08:58 Dose: 3,900 unit Documented By: PEG Heparin Sodium (Porcine) (Heparin Sodium,Porcine 5,000 Unit/Ml Vial) 7,700 unit 80 unit/kg (7700 unit) IVPUSH PROTOCOL BOLUS PRN; Protocol PRN Reason: 80 unit/kg - Heparin Protocol Last Admin: 09/17/25 17:38 Dose: 7,700 unit Documented By: PEG Cefepime HCl (Maxipime) 2 gm in 50 mls @ 100 mls/hr IV Q12H [facility] Last Infusion: 09/18/25 01:45 Dose: Infused Documented By: TAYE Heparin Sodium/Sodium Chloride (Heparin Sodium,Porcine/1/2ns) 25,000 unit in 250 mls @ 0 mls/hr IVCONT .Q0M [facility]; Protocol On Hold: 09/18/25 08:30 Resume: 09/18/25 13:00 Last Titration: 09/18/25 08:30 Dose: 0 units/kg/hr, 0 mls/hr Documented By: PEG Co-signed By: LARON Labetalol HCl (Labetalol Hcl 100 Mg Tablet) 300 mg PO BID [facility] Last Admin: 09/18/25 09:09 Dose: 300 mg Documented By: PEG Magnesium Hydroxide (Milk Of Magnesia 30 Ml Oral.Susp) 30 ml PO DAILY PRN PRN Reason: Constipation Melatonin (Melatonin 3 Mg Tablet) 6 mg PO BEDTIME PRN PRN Reason: Insomnia Morphine Sulfate (Morphine Sulfate 4 Mg/Ml Cartridge) 2 mg IVPUSH Q3H PRN; Protocol PRN Reason: Pain, Severe (Pain Scale 7-10) Ondansetron HCl (Ondansetron Hcl 4 Mg/2 Ml Vial) 4 mg IVPUSH Q4H PRN PRN Reason: Nausea and Vomiting Sodium Chloride (0.9 % Sodium Chloride Flush 3 Ml Syringe) 3 ml IVFLUSH QSHIFT [facility] Last Admin: 09/18/25 07:39 Dose: Not Given Documented By: PEG Non-Admin Reason: IV Running Labs 09/18/25 07:57 09/18/25 07:57 Labs: Laboratory Results - last 24 hr 09/17/25 09/17/25 09/17/25 12:40 16:28 23:25 MCV MCH MCHC RDW Plt Count MPV Absolute Nucleated RBC Nucleated RBC % (auto) APTT 28.2 aPTT Heparin Protocol 99.7 H D Anion Gap Estim Creat Clear Calc Estimated GFR Random Glucose Calcium Ur Random Sodium 83.0 Urine Creatinine 101.95 09/18/25 07:57 MCV 74.8 L MCH 23.4 L MCHC 31.3 RDW 17.2 H Plt Count 190 MPV 9.5 Absolute Nucleated RBC 0.000 Nucleated RBC % (auto) 0.0 APTT aPTT Heparin Protocol 75.7 D Anion Gap 14 Estim Creat Clear Calc 35.1 Estimated GFR 30 Random Glucose 103 Calcium 8.4 Ur Random Sodium Urine Creatinine Microbiology Microbiology Results: Microbiology 09/16/25 14:31 Blood Culture - Preliminary Blood - Venous No growth after 24 hours. 09/16/25 14:31 Blood Culture - Preliminary Blood - Venous No growth after 24 hours. Assessment and Plan (1) Occlusion of ureter by external compression: Status: Acute (2) Mass of uterus: Status: Acute (3) Acute deep vein thrombosis (DVT) of femoral vein of right lower extremity: Status: Acute Plan d3 for 65yo F with CKD and HTN presenting with weight loss and R abdominal/flank pain and found to have a 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 The psoas mass is encasing the iliac vein, causing an extensive RLE DVT. It is also adherent to the ureter, causing R hydroureteronephrosis. malignant psoas mass with hydroureteronephrosis - Oncology and Urology consulted; R nephrostomy done 09/17; CT-guided biopsy of psoas mass today [held heparin 90 prior, resume 2-3h after]; will need to follow up with Oncology - was started on cefepime in ED in case mass represented abscess but if no pus on biopsy, will d/c cefepime malignancy-associated DVT - heparin drip; hold for procedures as above; will eventually transition to apixaban renal insufficiency - unclear baseline; Nephro consulted; SCr likely at baseline; FENa 1% [indeterminate] HTN - labetalol; increase to bid VTE ppx: on treatment-dose heparin dispo: PT eval after biopsy In my clinical judgment, the patient requires continued inpatient hospitalization for the following reasons: nephrostomy, biopsy, heparin drip Total time managing care of this patient today: 45 minutes. Quality Stroke Does the patient have a stroke diagnosis?: No VTE Prior VTE?: No VTE Risk Level:: Medical - moderate - high VTE Device Contraindication: N/A - Device Ordered VTE Drug Contraindication: N/A - Med Ordered
[2025-09-18 13:31] LABS: Partial Thromboplastin Time 31.4 SEC (26.7-34.1)
--- NOTE | 2025-09-18 13:53 | MHC.CM.PN ---
EMR REVIEWED, PT ON HEPARIN DRIP D/T MASS ASSOCIATED DVT, AND S/P DAY 1 NEPHROSTOMY, PLAN FOR CT GUIDED BIOPSY TODAY, NO PLAN FOR DC AT THIS TIME, CM WILL CONT TO FOLLOW DC NEEDS.
[2025-09-18 20:39] LABS: PTT Heparin Drip 56.2 SEC (53-77.9)
[2025-09-18] MEDS: Heparin Sodium,Porcine/1/2NS 25,000 UNIT/250 ML IV.SOLN 12.58 UNIT IVCONT (21:07)
[2025-09-18] MEDS: 0.9 % Sodium Chloride Flush 3 ML SYRINGE IVFLUSH (21:44)
[2025-09-19] VITALS (8 sets, daily range): BP systolic 122–186; BP diastolic 58–86; PULSE 76–92; RESP 16–20; TEMP 36.2–36.8; O2SAT 95–98
[2025-09-19 02:31] LABS: PTT Heparin Drip 49.9 SEC (53-77.9)
[2025-09-19 08:19] LABS: Hematocrit 32.9 % (37.0-47.0); Hemoglobin 10.1 g/dl (12.0-16.0); Mean Corpuscular HGB Conc 30.7 g/dl (31.0-35.0); Mean Corpuscular Hemoglobin 23.3 pg (27.0-33.0); Mean Corpuscular Volume 75.8 fL (80.0-98.0); NRBC Abs Auto 0.000 X10*3/uL (0.0-0.012); NRBC Pct Auto 0.0 /100WBC (0.0-0.2); Platelet Count 200 X10*3/uL (160-400); Red Blood Count 4.34 X10*6/uL (4.20-5.50); White Blood Count 13.6 X10*3/uL (4.8-10.8)
[2025-09-19 08:26] LABS: PTT Heparin Drip 103.9 SEC (53-77.9)
[2025-09-19 08:35] LABS: Anion Gap 13 (12-20); Blood Urea Nitrogen 22 mg/dL (9-16); Calcium 8.4 mg/dL (8.4-10.2); Carbon Dioxide 23 mmol/L (22-29); Chloride 109 mmol/L (96-108); Creatinine Clr Calc Pharmacy 30.9; Estimated Glomerular Filt Rate 26; Potassium 3.7 mmol/L (3.3-5.1); Sodium 141 mmol/L (135-145)
[2025-09-19] MEDS: 0.9 % Sodium Chloride Flush 3 ML SYRINGE IVFLUSH ×2 (10:10→19:47)
--- NOTE | 2025-09-19 11:38 | P.PNIM_ITS ---
Subjective Subjective Date of Service: 09/19/25 Interval History: c/o worsening R flank pain, generalized weakness nephrostomy has grossly bloody urine poor appetite Review of Systems Review of Systems: Yes all other systems are reviewed and are negative Physical Exam 2 Vital Signs: Vital Signs: Last Vital Signs Temp 97.8 F 09/19/25 08:00 Pulse 92 09/19/25 10:06 Resp 20 09/19/25 08:00 BP 186/86 H 09/19/25 10:06 Pulse Ox 95 09/19/25 08:00 O2 Del Method Room Air 09/19/25 08:00 O2 Flow Rate 2 09/18/25 10:40 BMI result Body Mass Index 37.8 Gen: in no acute distress HEENT: sclera anicteric, moist mucus membranes Neck: supple Lungs: clear to auscultation bilaterally Heart: regular rate and rhythm, no murmurs Abd: soft, RLQ tenderness and fullness, non-distended : R nephrostomy with bloody urine Ext: no edema Skin: warm/well-perfused Neuro: alert and oriented x3, no focal findings Psych: appropriate affect Objective Data Active Medications Acetaminophen (Acetaminophen 325 Mg Tablet) 650 mg PO Q6H PRN PRN Reason: Pain, Mild 1-3,fever,headache Last Admin: 09/19/25 10:09 Dose: 650 mg Documented By: SUDARSHAN Apixaban (Apixaban 5 Mg Tablet) 10 mg PO BID [facility] Stop: 09/25/25 21:01 Last Admin: 09/19/25 10:06 Dose: 10 mg Documented By: SUDARSHAN Calcium Carbonate (Calcium Carbonate 750 Mg Tab.Chew) 750 mg PO Q4H PRN PRN Reason: Heartburn Labetalol HCl (Labetalol Hcl 100 Mg Tablet) 300 mg PO BID [facility] Last Admin: 09/19/25 10:06 Dose: 300 mg Documented By: SUDARSHAN Magnesium Hydroxide (Milk Of Magnesia 30 Ml Oral.Susp) 30 ml PO DAILY PRN PRN Reason: Constipation Melatonin (Melatonin 3 Mg Tablet) 6 mg PO BEDTIME PRN PRN Reason: Insomnia Morphine Sulfate (Morphine Sulfate 4 Mg/Ml Cartridge) 2 mg IVPUSH Q3H PRN; Protocol PRN Reason: Pain, Severe (Pain Scale 7-10) Ondansetron HCl (Ondansetron Hcl 4 Mg/2 Ml Vial) 4 mg IVPUSH Q4H PRN PRN Reason: Nausea and Vomiting Sodium Chloride (0.9 % Sodium Chloride Flush 3 Ml Syringe) 3 ml IVFLUSH QSHIFT ORLY Last Admin: 09/19/25 10:10 Dose: 3 ml Documented By: SUDARSHAN Labs 09/19/25 06:59 09/19/25 06:59 Labs: Laboratory Results - last 24 hr 09/18/25 09/18/25 09/19/25 13:08 20:11 02:12 MCV MCH MCHC RDW Plt Count MPV Absolute Nucleated RBC Nucleated RBC % (auto) APTT 31.4 aPTT Heparin Protocol 56.2 D 49.9 L Anion Gap Estim Creat Clear Calc Estimated GFR Random Glucose Calcium 09/19/25 06:59 MCV 75.8 L MCH 23.3 L MCHC 30.7 L RDW 17.2 H Plt Count 200 MPV 10.5 Absolute Nucleated RBC 0.000 Nucleated RBC % (auto) 0.0 APTT aPTT Heparin Protocol 103.9 H D Anion Gap 13 Estim Creat Clear Calc 30.9 Estimated GFR 26 Random Glucose 91 Calcium 8.4 Microbiology Microbiology Results: Microbiology 09/16/25 14:31 Blood Culture - Preliminary Blood - Venous No growth after 48 hours. 09/16/25 14:31 Blood Culture - Preliminary Blood - Venous No growth after 48 hours. 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 The psoas mass is encasing the iliac vein, causing an extensive RLE DVT. It is also adherent to the ureter, causing R hydroureteronephrosis. malignant psoas mass with hydroureteronephrosis - Oncology and Urology consulted; R nephrostomy done 09/17; CT-guided biopsy of psoas mass done 09/18; will need to follow up with Oncology - was started on cefepime in ED in case mass represented abscess but no pus on biopsy; stopped cefepime 09/18 - pain control with IV morphine, PO oxycodone hematuria - s/p nephrostomy and on heparin drip -> apixaban; monitor closely; recheck H+H tomorrow malignancy-associated DVT - was heparin drip with hold for procedures as above; transition to apixaban today 10 mg bid x7d, then 5 mg bid renal insufficiency - unclear baseline; Nephro consulted; SCr likely at baseline; FENa 1% [indeterminate] HTN - labetalol; increased to bid VTE ppx: on apixaban dispo: PT eval pending In my clinical judgment, the patient requires continued inpatient hospitalization for the following reasons: hematuria Total time managing care of this patient today: 45 minutes. Quality Stroke Does the patient have a stroke diagnosis?: No VTE Prior VTE?: No VTE Risk Level:: Medical - moderate - high VTE Device Contraindication: N/A - Device Ordered VTE Drug Contraindication: N/A - Med Ordered
--- NOTE | 2025-09-19 15:31 | P.PNNP_ITS ---
Subjective Subjective Date of Service: 09/19/25 Interval history: c/o worsening R flank pain, generalized weakness nephrostomy has grossly bloody urine poor appetite Physical Exam 2 Exam: Exam: cvs: s1s2 RS; cta abd: soft Vital Signs: Vital Signs: Last Vital Signs Temp 98.3 F 09/19/25 12:00 Pulse 78 09/19/25 14:08 Resp 20 09/19/25 12:00 BP 164/70 H 09/19/25 14:08 Pulse Ox 96 09/19/25 14:08 O2 Del Method Room Air 09/19/25 12:00 O2 Flow Rate 2 09/18/25 10:40 BMI result Body Mass Index 37.8 Objective Data Labs 09/19/25 06:59 09/19/25 06:59 Labs: Laboratory Results - last 24 hr 09/18/25 09/19/25 09/19/25 20:11 02:12 06:59 WBC 13.6 H RBC 4.34 Hgb 10.1 L Hct 32.9 L MCV 75.8 L MCH 23.3 L MCHC 30.7 L RDW 17.2 H Plt Count 200 MPV 10.5 Absolute Nucleated RBC 0.000 Nucleated RBC % (auto) 0.0 aPTT Heparin Protocol 56.2 D 49.9 L 103.9 H D Sodium 141 Potassium 3.7 Chloride 109 H Carbon Dioxide 23 Anion Gap 13 BUN 22 H Creatinine 1.95 H Estim Creat Clear Calc 30.9 Estimated GFR 26 Random Glucose 91 Calcium 8.4 Microbiology Microbiology Results: Microbiology 09/16/25 14:31 Blood - Venous Blood Culture - Preliminary No growth after 48 hours. 09/16/25 14:31 Blood - Venous Blood Culture - Preliminary No growth after 48 hours. Procedures Date of Service Date of Service: 09/19/25 Assessment & Plan Assessment and plan (1) Renal insufficiency: Status: Acute (2) HTN (hypertension): Status: Acute Plan SARAI on CKD vs CKD: records from 2019 reveals SCr 1.8 to 2.1 suggest adv CKD and prior w/u was HTN and now with R Obs Obs R Kidney: IR- right NTube- draining urine pt concerned about poor voiding urine volume from bladder ( left kidney)- had ~ 100ml in the bladder, discussed with nursing to monitor uop via bladder- if low, will consider nuc split function study psoas mass -per ONC- likely sarcoma or a metastatsis from uterine primary; right leg DVT - prothrombotic from malignancy - on AC HTN- cont labetalol , no significant proteinuria, can start chlorthalidone if bp not controlled. REC: cont tot rack renal func, avoid NToxins; titrate up BP meds Time Spent With Patient Time: Total time managing care of this patient today ____ minutes. Progress Note: Quality Stroke Does the patient have a stroke diagnosis?: No
[2025-09-20] VITALS (7 sets, daily range): BP systolic 137–172; BP diastolic 65–80; PULSE 51–88; RESP 16–20; TEMP 36.1–37; O2SAT 95–99
[2025-09-20 08:12] LABS: Hematocrit 31.5 % (37.0-47.0); Hemoglobin 9.9 g/dl (12.0-16.0); Mean Corpuscular HGB Conc 31.4 g/dl (31.0-35.0); Mean Corpuscular Hemoglobin 23.7 pg (27.0-33.0); Mean Corpuscular Volume 75.5 fL (80.0-98.0); NRBC Abs Auto 0.000 X10*3/uL (0.0-0.012); NRBC Pct Auto 0.0 /100WBC (0.0-0.2); Platelet Count 201 X10*3/uL (160-400); Red Blood Count 4.17 X10*6/uL (4.20-5.50); White Blood Count 11.8 X10*3/uL (4.8-10.8)
[2025-09-20 08:27] LABS: Anion Gap 11 (12-20); Blood Urea Nitrogen 29 mg/dL (9-16); Calcium 8.3 mg/dL (8.4-10.2); Carbon Dioxide 24 mmol/L (22-29); Chloride 110 mmol/L (96-108); Creatinine Clr Calc Pharmacy 30.2; Estimated Glomerular Filt Rate 25; Potassium 3.8 mmol/L (3.3-5.1); Sodium 141 mmol/L (135-145)
[2025-09-20] MEDS: 0.9 % Sodium Chloride Flush 3 ML SYRINGE IVFLUSH (09:34)
--- NOTE | 2025-09-20 14:49 | P.PNIM_ITS ---
Subjective Subjective Date of Service: 09/20/25 Interval History: No acute issues over night. Nephrostomy tube continues to drain bloody urine Review of Systems Denies chest pain Denies shortness of breath Denies nausea vomiting diarrhea Denies fever chills Physical Exam 2 Vital Signs: Vital Signs: Last Vital Signs Temp 97.5 F 09/20/25 12:00 Pulse 77 09/20/25 12:00 Resp 20 09/20/25 12:00 BP 147/67 H 09/20/25 12:00 Pulse Ox 95 09/20/25 12:00 O2 Del Method Room Air 09/20/25 12:00 O2 Flow Rate 2 09/18/25 10:40 BMI result Body Mass Index 37.8 Const: Other: Awake alert oriented x3 in no acute distress Resp: Other: Clear to auscultation bilaterally no rales rhonchi or wheezes Cardio: Other: No S4; positive S1-S2; no S3 murmurs rubs or gallops GI: Other: Soft nontender nondistended normoactive bowel sounds Extrem: Other: No edema bilaterally Objective Data Active Medications Acetaminophen (Acetaminophen 325 Mg Tablet) 650 mg PO Q6H PRN PRN Reason: Pain, Mild 1-3,fever,headache Last Admin: 09/20/25 09:33 Dose: 650 mg Documented By: NIALL Apixaban (Apixaban 5 Mg Tablet) 10 mg PO BID [facility] Stop: 09/25/25 21:01 Last Admin: 09/20/25 09:32 Dose: 10 mg Documented By: NIALL Calcium Carbonate (Calcium Carbonate 750 Mg Tab.Chew) 750 mg PO Q4H PRN PRN Reason: Heartburn Labetalol HCl (Labetalol Hcl 100 Mg Tablet) 300 mg PO BID [facility] Last Admin: 09/20/25 09:33 Dose: 300 mg Documented By: NIALL Magnesium Hydroxide (Milk Of Magnesia 30 Ml Oral.Susp) 30 ml PO DAILY PRN PRN Reason: Constipation Melatonin (Melatonin 3 Mg Tablet) 6 mg PO BEDTIME PRN PRN Reason: Insomnia Morphine Sulfate (Morphine Sulfate 4 Mg/Ml Cartridge) 2 mg IVPUSH Q3H PRN; Protocol PRN Reason: Pain, Severe (Pain Scale 7-10) Ondansetron HCl (Ondansetron Hcl 4 Mg/2 Ml Vial) 4 mg IVPUSH Q4H PRN PRN Reason: Nausea and Vomiting Oxycodone HCl (Oxycodone Hcl Immed Release 5 Mg Tablet) 5 mg PO Q4H PRN PRN Reason: Pain, Moderate(Pain Scale 4-6) Sodium Chloride (0.9 % Sodium Chloride Flush 3 Ml Syringe) 3 ml IVFLUSH QSHIFT ORLY Last Admin: 09/20/25 09:34 Dose: 3 ml Documented By: NIALL Labs 09/20/25 06:52 09/20/25 06:52 Labs: Laboratory Results - last 24 hr 09/20/25 06:52 MCV 75.5 L MCH 23.7 L MCHC 31.4 RDW 17.2 H Plt Count 201 MPV 9.8 Absolute Nucleated RBC 0.000 Nucleated RBC % (auto) 0.0 Anion Gap 11 L Estim Creat Clear Calc 30.2 Estimated GFR 25 Random Glucose 85 Calcium 8.3 L Assessment and Plan (1) Occlusion of ureter by external compression: Status: Acute (2) Renal insufficiency: Status: Acute (3) Acute deep vein thrombosis (DVT) of femoral vein of right lower extremity: Status: Acute (4) HTN (hypertension): Status: Acute Plan d4 for 65yo F with CKD and HTN presenting with weight loss and R abdominal/flank pain and found to have a 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 The psoas mass is encasing the iliac vein, causing an extensive RLE DVT. It is also adherent to the ureter, causing R hydroureteronephrosis. 1.Malignant psoas mass with hydroureteronephrosis - Oncology and Urology consulted; R nephrostomy done 09/17; CT-guided biopsy of psoas mass done 09/18; will need to follow up with Oncology - was started on cefepime in ED in case mass represented abscess but no pus on biopsy; stopped cefepime 09/18 - pain control with IV morphine, PO oxycodone 2.Hematuria - s/p nephrostomy .. apixaban; -follow CBC in a.m. 3.Malignancy-associated DVT -apixaban 10 mg bid x7d(09/25) then 5 mg bid 4.Renal insufficiency -appreciate renal input -follow renal/divalent 5.HTN - labetalol increased to b.i.d. -follow up clinically VTE ppx: on apixaban dispo: PT eval pending In my clinical judgment, the patient requires continued inpatient hospitalization for the following reasons: hematuria Quality Stroke Does the patient have a stroke diagnosis?: No VTE Prior VTE?: No VTE Risk Level:: Medical - moderate - high VTE Device Contraindication: N/A - Device Ordered VTE Drug Contraindication: N/A - Med Ordered
[2025-09-21] VITALS (8 sets, daily range): BP systolic 135–176; BP diastolic 68–83; PULSE 75–82; RESP 16–18; TEMP 36.1–37.2; O2SAT 94–97
[2025-09-21] MEDS: 0.9 % Sodium Chloride Flush 3 ML SYRINGE IVFLUSH ×2 (00:16→23:45)
[2025-09-21 06:53] LABS: MANUAL DIFF FLAG NO
[2025-09-21 06:59] LABS: Hematocrit 33.4 % (37.0-47.0); Hemoglobin 10.1 g/dl (12.0-16.0); Imm Gran Abs Auto 0.06 X10*3/uL (0.00-0.03); Imm Gran Pct Auto 0.5 % (0.0-0.4); Lymphocytes Absolute Auto 1.4 X10*3/uL (1.2-4.9); Mean Corpuscular HGB Conc 30.2 g/dl (31.0-35.0); Mean Corpuscular Hemoglobin 23.2 pg (27.0-33.0); Mean Corpuscular Volume 76.6 fL (80.0-98.0); NRBC Abs Auto 0.000 X10*3/uL (0.0-0.012); NRBC Pct Auto 0.0 /100WBC (0.0-0.2); Platelet Count 208 X10*3/uL (160-400); Red Blood Count 4.36 X10*6/uL (4.20-5.50); White Blood Count 11.9 X10*3/uL (4.8-10.8)
[2025-09-21 07:19] LABS: Alanine Aminotransferase 8 U/L (0-31); Albumin Level 3.1 g/dL (3.5-5.0); Alkaline Phosphatase 96 U/L (39-117); Anion Gap 10 (12-20); Aspartate Amino Transferase 35 U/L (5-31); Blood Urea Nitrogen 28 mg/dL (9-16); Calcium 8.3 mg/dL (8.4-10.2); Carbon Dioxide 23 mmol/L (22-29); Chloride 109 mmol/L (96-108); Creatinine Clr Calc Pharmacy 28.5; Estimated Glomerular Filt Rate 23; Potassium 3.8 mmol/L (3.3-5.1); Sodium 138 mmol/L (135-145); Total Protein 5.8 g/dL (6.5-8.0)
--- NOTE | 2025-09-21 15:05 | MHC.CM.PN ---
EMR REVIEWED AND PER MD ROUNDS, PATIENT IS NOT MEDICALLY CLEARED FOR DISCHARGE DUE TO MANAGEMENT OF HEMATURIA.
--- NOTE | 2025-09-21 16:29 | P.PNIM_ITS ---
Subjective Subjective Date of Service: 09/21/25 Interval History: Continues with hematuria and percutaneous drain bag now with complaints of vaginal bleeding Review of Systems Denies chest pain Denies shortness of breath Denies nausea vomiting diarrhea Denies fever chills Physical Exam 2 Vital Signs: Vital Signs: Last Vital Signs Temp 98.0 F 09/21/25 15:26 Pulse 81 09/21/25 15:26 Resp 16 09/21/25 15:26 BP 176/83 H 09/21/25 15:26 Pulse Ox 95 09/21/25 15:26 O2 Del Method Room Air 09/21/25 15:26 O2 Flow Rate 2 09/18/25 10:40 BMI result Body Mass Index 37.8 Const: Other: Awake alert oriented x3 in no acute distress Resp: Other: Clear to auscultation bilaterally no rales rhonchi or wheezes Cardio: Other: No S4; positive S1-S2; no S3 murmurs rubs or gallops GI: Other: Soft nontender nondistended normoactive bowel sounds Extrem: Other: No edema bilaterally Objective Data Active Medications Acetaminophen (Acetaminophen 325 Mg Tablet) 650 mg PO Q6H PRN PRN Reason: Pain, Mild 1-3,fever,headache Last Admin: 09/21/25 13:06 Dose: 650 mg Documented By: DELMI Apixaban (Apixaban 5 Mg Tablet) 10 mg PO BID [facility] Stop: 09/25/25 21:01 Last Admin: 09/21/25 09:03 Dose: 10 mg Documented By: DELMI Calcium Carbonate (Calcium Carbonate 750 Mg Tab.Chew) 750 mg PO Q4H PRN PRN Reason: Heartburn Labetalol HCl (Labetalol Hcl 100 Mg Tablet) 300 mg PO BID [facility] Last Admin: 09/21/25 09:03 Dose: 300 mg Documented By: DELMI Magnesium Hydroxide (Milk Of Magnesia 30 Ml Oral.Susp) 30 ml PO DAILY PRN PRN Reason: Constipation Melatonin (Melatonin 3 Mg Tablet) 6 mg PO BEDTIME PRN PRN Reason: Insomnia Morphine Sulfate (Morphine Sulfate 4 Mg/Ml Cartridge) 2 mg IVPUSH Q3H PRN; Protocol PRN Reason: Pain, Severe (Pain Scale 7-10) Ondansetron HCl (Ondansetron Hcl 4 Mg/2 Ml Vial) 4 mg IVPUSH Q4H PRN PRN Reason: Nausea and Vomiting Oxycodone HCl (Oxycodone Hcl Immed Release 5 Mg Tablet) 5 mg PO Q4H PRN PRN Reason: Pain, Moderate(Pain Scale 4-6) Sodium Chloride (0.9 % Sodium Chloride Flush 3 Ml Syringe) 3 ml IVFLUSH QSHIFT ORLY Last Admin: 09/21/25 14:26 Dose: Not Given Documented By: DELMI Non-Admin Reason: computer not scanning barcode, med given Labs 09/21/25 06:18 09/21/25 06:18 Labs: Laboratory Results - last 24 hr 09/21/25 06:18 MCV 76.6 L MCH 23.2 L MCHC 30.2 L RDW 17.2 H Plt Count 208 MPV 9.7 Immature Gran % (Auto) 0.5 H Neut % (Auto) 77.6 H Lymph % (Auto) 12.1 L [place] % (Auto) 6.6 Eos % (Auto) 2.5 Baso % (Auto) 0.7 Lymph # (Auto) 1.4 [place] # (Auto) 0.8 Eos # (Auto) 0.3 Baso # (Auto) 0.1 Abs Immat Gran (auto) 0.06 H Absolute Neuts (auto) 9.2 H Absolute Nucleated RBC 0.000 Nucleated RBC % (auto) 0.0 Anion Gap 10 L Estim Creat Clear Calc 28.5 Estimated GFR 23 Fasting Glucose 91 Calcium 8.3 L Total Bilirubin 0.2 AST 35 H ALT 8 Alkaline Phosphatase 96 Total Protein 5.8 L Albumin 3.1 L Assessment and Plan (1) Occlusion of ureter by external compression: Status: Acute (2) Acute deep vein thrombosis (DVT) of femoral vein of right lower extremity: Status: Acute (3) HTN (hypertension): Status: Acute Plan d4 for 65yo F with CKD and HTN presenting with weight loss and R abdominal/flank pain and found to have a 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 The psoas mass is encasing the iliac vein, causing an extensive RLE DVT. It is also adherent to the ureter, causing R hydroureteronephrosis. 1.Malignant psoas mass with hydroureteronephrosis - Oncology and Urology consulted; R nephrostomy done 09/17; CT-guided biopsy of psoas mass done 09/18; poorly differentiated carcinoma - was started on cefepime in ED in case mass represented abscess but no pus on biopsy; stopped cefepime 09/18 - pain control with IV morphine, PO oxycodone 2.Hematuria - s/p nephrostomy .. apixaban; -discussed with hematology in a.m. -follow CBC in a.m. 3.Malignancy-associated DVT -apixaban 10 mg bid x7d(09/25) then 5 mg bid 4.Renal insufficiency -appreciate renal input -follow renal/divalent 5.HTN - labetalol increased to b.i.d. -follow up clinically VTE ppx: on apixaban dispo: PT eval pending In my clinical judgment, the patient requires continued inpatient hospitalization for the following reasons: hematuria Quality Stroke Does the patient have a stroke diagnosis?: No VTE Prior VTE?: No VTE Risk Level:: Medical - moderate - high VTE Device Contraindication: N/A - Device Ordered VTE Drug Contraindication: N/A - Med Ordered
--- NOTE | 2025-09-21 20:52 | P.PNNP_ITS ---
Subjective Subjective Date of Service: 09/21/25 Interval history: Seen and examiendabi noted Physical Exam 2 Vital Signs: Vital Signs: Last Vital Signs Temp 97.0 F 09/21/25 19:00 Pulse 82 09/21/25 19:00 Resp 16 09/21/25 19:00 BP 135/68 09/21/25 19:00 Pulse Ox 97 09/21/25 19:00 O2 Del Method Room Air 09/21/25 19:00 O2 Flow Rate 2 09/18/25 10:40 BMI result Body Mass Index 37.8 Const: Other: Awake alert oriented x3 in no acute distress General: cooperative, healthy appearing, comfortable and no acute distress Orientation/consciousness: patient oriented x3 HEENT: Face and sinus: Yes normal facial exam Mouth: moist mucous membranes Neck: Neck: Yes normal visual inspection, Yes full ROM and Yes trachea midline Chest: Chest palpation & inspection: normal inspection of the chest Resp: Other: Clear to auscultation bilaterally no rales rhonchi or wheezes Effort & Inspection: normal respiratory effort, able to speak in complete sentences and no respiratory distress Cardio: Other: No S4; positive S1-S2; no S3 murmurs rubs or gallops GI: Other: Soft nontender nondistended normoactive bowel sounds Inspection: Yes normal to inspection Back/Spine/Pelvis: Cervical Spine: normal cervical lordosis Thoracic/Lumbar Spine: thoracic and lumbar spine normal to inspection Skin: General skin exam: no rashes or lesions noted Neuro: General: patient oriented x3, tone normal and moves all extremities Extrem: Other: No edema bilaterally General: Yes normal to inspection and Yes capillary refill normal Objective Data Labs 09/21/25 06:18 09/21/25 06:18 Labs: Laboratory Results - last 24 hr 09/21/25 06:18 WBC 11.9 H RBC 4.36 Hgb 10.1 L Hct 33.4 L MCV 76.6 L MCH 23.2 L MCHC 30.2 L RDW 17.2 H Plt Count 208 MPV 9.7 Immature Gran % (Auto) 0.5 H Neut % (Auto) 77.6 H Lymph % (Auto) 12.1 L [place] % (Auto) 6.6 Eos % (Auto) 2.5 Baso % (Auto) 0.7 Lymph # (Auto) 1.4 [place] # (Auto) 0.8 Eos # (Auto) 0.3 Baso # (Auto) 0.1 Abs Immat Gran (auto) 0.06 H Absolute Neuts (auto) 9.2 H Absolute Nucleated RBC 0.000 Nucleated RBC % (auto) 0.0 Sodium 138 Potassium 3.8 Chloride 109 H Carbon Dioxide 23 Anion Gap 10 L BUN 28 H Creatinine 2.12 H Estim Creat Clear Calc 28.5 Estimated GFR 23 Fasting Glucose 91 Calcium 8.3 L Total Bilirubin 0.2 AST 35 H ALT 8 Alkaline Phosphatase 96 Total Protein 5.8 L Albumin 3.1 L Microbiology Microbiology Results: Microbiology 09/16/25 14:31 Blood - Venous Blood Culture - Final No growth after 5 days. 09/16/25 14:31 Blood - Venous Blood Culture - Final No growth after 5 days. Procedures Date of Service Date of Service: 09/21/25 Assessment & Plan Assessment and plan (1) Renal insufficiency: Status: Acute (2) HTN (hypertension): Status: Acute Plan SARAI on CKD vs CKD: records from 2019 reveals SCr 1.8 to 2.1 suggest adv CKD and prior w/u was HTN and now with R Obs Obs R Kidney: IR- right NTube- draining urine pt concerned about poor voiding urine volume from bladder ( left kidney)- had ~ 100ml in the bladder, discussed with nursing to monitor uop via bladder- if low, will consider nuc split function study psoas mass -per ONC- likely sarcoma or a metastatsis from uterine primary; right leg DVT - prothrombotic from malignancy - on AC HTN- cont labetalol , no significant proteinuria, can start chlorthalidone if bp not controlled. REC: cont tot rack renal func, avoid NToxins; titrate up BP meds; d/w Urol and rad next imaging study if UOP from bladder remains poor Time Spent With Patient Time: Total time managing care of this patient today ____ minutes. Progress Note: Quality Stroke Does the patient have a stroke diagnosis?: No
[2025-09-22 03:01] VITALS: BP 164/69; PULSE 77; RESP 16; TEMP 36.6; O2SAT 98
[2025-09-22 06:54] LABS: MANUAL DIFF FLAG NO
[2025-09-22 07:03] LABS: Hematocrit 32.2 % (37.0-47.0); Hemoglobin 9.9 g/dl (12.0-16.0); Imm Gran Abs Auto 0.05 X10*3/uL (0.00-0.03); Imm Gran Pct Auto 0.5 % (0.0-0.4); Lymphocytes Absolute Auto 1.3 X10*3/uL (1.2-4.9); Mean Corpuscular HGB Conc 30.7 g/dl (31.0-35.0); Mean Corpuscular Hemoglobin 23.4 pg (27.0-33.0); Mean Corpuscular Volume 76.1 fL (80.0-98.0); NRBC Abs Auto 0.000 X10*3/uL (0.0-0.012); NRBC Pct Auto 0.0 /100WBC (0.0-0.2); Platelet Count 200 X10*3/uL (160-400); Red Blood Count 4.23 X10*6/uL (4.20-5.50); White Blood Count 10.9 X10*3/uL (4.8-10.8)
[2025-09-22 07:08] VITALS: BP 160/73; PULSE 72; RESP 18; TEMP 36.7; O2SAT 93
[2025-09-22 07:25] LABS: Alanine Aminotransferase 12 U/L (0-31); Albumin Level 3.0 g/dL (3.5-5.0); Alkaline Phosphatase 101 U/L (39-117); Anion Gap 12 (12-20); Aspartate Amino Transferase 44 U/L (5-31); Blood Urea Nitrogen 30 mg/dL (9-16); Calcium 8.3 mg/dL (8.4-10.2); Carbon Dioxide 23 mmol/L (22-29); Chloride 109 mmol/L (96-108); Creatinine Clr Calc Pharmacy 29.9; Estimated Glomerular Filt Rate 25; Potassium 4.2 mmol/L (3.3-5.1); Sodium 140 mmol/L (135-145); Total Protein 5.7 g/dL (6.5-8.0)
[2025-09-22] MEDS: 0.9 % Sodium Chloride Flush 3 ML SYRINGE IVFLUSH ×3 (08:14→21:45)
[2025-09-22 11:15] VITALS: BP 132/59; PULSE 80; RESP 18; TEMP 36.6; O2SAT 96
--- NOTE | 2025-09-22 15:13 | P.PNIM_ITS ---
Subjective Subjective Date of Service: 09/22/25 Interval History: Continues to have bleeding through percutaneous tube site and minimal vaginal bleeding. Otherwise no acute issues Review of Systems Denies chest pain Denies shortness of breath Denies nausea vomiting diarrhea Denies fever chills Physical Exam 2 Vital Signs: Vital Signs: Last Vital Signs Temp 97.9 F 09/22/25 11:15 Pulse 80 09/22/25 11:15 Resp 18 09/22/25 11:15 BP 132/59 L 09/22/25 11:15 Pulse Ox 96 09/22/25 11:15 O2 Del Method Room Air 09/22/25 11:15 O2 Flow Rate 2 09/18/25 10:40 BMI result Body Mass Index 37.8 Const: Other: Awake alert oriented x3 in no acute distress Resp: Other: Clear to auscultation bilaterally no rales rhonchi or wheezes Cardio: Other: No S4; positive S1-S2; no S3 murmurs rubs or gallops GI: Other: Soft nontender nondistended normoactive bowel sounds Extrem: Other: No edema bilaterally Objective Data Active Medications Acetaminophen (Acetaminophen 325 Mg Tablet) 650 mg PO Q6H PRN PRN Reason: Pain, Mild 1-3,fever,headache Last Admin: 09/22/25 08:13 Dose: 650 mg Documented By: DELMI Apixaban (Apixaban 5 Mg Tablet) 10 mg PO BID [facility] Stop: 09/25/25 21:01 Last Admin: 09/22/25 08:13 Dose: 10 mg Documented By: DELMI Calcium Carbonate (Calcium Carbonate 750 Mg Tab.Chew) 750 mg PO Q4H PRN PRN Reason: Heartburn Labetalol HCl (Labetalol Hcl 100 Mg Tablet) 300 mg PO BID [facility] Last Admin: 09/22/25 08:12 Dose: 300 mg Documented By: DELMI Magnesium Hydroxide (Milk Of Magnesia 30 Ml Oral.Susp) 30 ml PO DAILY PRN PRN Reason: Constipation Melatonin (Melatonin 3 Mg Tablet) 6 mg PO BEDTIME PRN PRN Reason: Insomnia Ondansetron HCl (Ondansetron Hcl 4 Mg/2 Ml Vial) 4 mg IVPUSH Q4H PRN PRN Reason: Nausea and Vomiting Oxycodone HCl (Oxycodone Hcl Immed Release 5 Mg Tablet) 5 mg PO Q4H PRN PRN Reason: Pain, Moderate(Pain Scale 4-6) Sodium Chloride (0.9 % Sodium Chloride Flush 3 Ml Syringe) 3 ml IVFLUSH QSHIFT [facility] Last Admin: 09/22/25 08:14 Dose: 3 ml Documented By: DELMI Labs 09/22/25 06:37 09/22/25 06:37 Labs: Laboratory Results - last 24 hr 09/22/25 06:37 MCV 76.1 L MCH 23.4 L MCHC 30.7 L RDW 17.5 H Plt Count 200 MPV 9.8 Immature Gran % (Auto) 0.5 H Neut % (Auto) 78.3 H Lymph % (Auto) 11.7 L [place] % (Auto) 6.6 Eos % (Auto) 2.3 Baso % (Auto) 0.6 Lymph # (Auto) 1.3 [place] # (Auto) 0.7 Eos # (Auto) 0.3 Baso # (Auto) 0.1 Abs Immat Gran (auto) 0.05 H Absolute Neuts (auto) 8.6 H Absolute Nucleated RBC 0.000 Nucleated RBC % (auto) 0.0 Anion Gap 12 Estim Creat Clear Calc 29.9 Estimated GFR 25 Fasting Glucose 93 Calcium 8.3 L Total Bilirubin 0.2 AST 44 H ALT 12 Alkaline Phosphatase 101 Total Protein 5.7 L Albumin 3.0 L Microbiology Microbiology Results: Microbiology 09/16/25 14:31 Blood Culture - Final Blood - Venous No growth after 5 days. 09/16/25 14:31 Blood Culture - Final Blood - Venous No growth after 5 days. 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 The psoas mass is encasing the iliac vein, causing an extensive RLE DVT. It is also adherent to the ureter, causing R hydroureteronephrosis. 1.Malignant psoas mass with hydroureteronephrosis - Oncology and Urology consulted; R nephrostomy done 09/17; CT-guided biopsy of psoas mass done 09/18; poorly differentiated carcinoma - was started on cefepime in ED in case mass represented abscess but no pus on biopsy; stopped cefepime 09/18 - pain control with IV morphine, PO oxycodone 2.Hematuria - s/p nephrostomy .. apixaban; -discussed with hematology given extensive clot burden would continue Eliquis -likely mechanical irritation from stent -follow CBC in a.m. 3.Malignancy-associated DVT -apixaban 10 mg bid x7d(09/25) then 5 mg bid 4.Renal insufficiency -appreciate renal input -follow renal/divalent 5.HTN - labetalol increased to b.i.d. -follow up clinically VTE ppx: on apixaban dispo: PT eval pending In my clinical judgment, the patient requires continued inpatient hospitalization for the following reasons: hematuria Quality Stroke Does the patient have a stroke diagnosis?: No VTE Prior VTE?: No VTE Risk Level:: Medical - moderate - high VTE Device Contraindication: N/A - Device Ordered VTE Drug Contraindication: N/A - Med Ordered
[2025-09-22 15:30] VITALS: BP 122/94; PULSE 92; RESP 18; TEMP 36.4; O2SAT 97
--- NOTE | 2025-09-22 15:49 | P.PNNP_ITS ---
Subjective Subjective Date of Service: 09/22/25 Interval history: Seen and examined,e ventys noted Physical Exam 2 Vital Signs: Vital Signs: Last Vital Signs Temp 97.6 F 09/22/25 15:30 Pulse 92 09/22/25 15:30 Resp 18 09/22/25 15:30 BP 122/94 H 09/22/25 15:30 Pulse Ox 97 09/22/25 15:30 O2 Del Method Room Air 09/22/25 15:30 O2 Flow Rate 2 09/18/25 10:40 BMI result Body Mass Index 37.8 Const: Other: Awake alert oriented x3 in no acute distress General: cooperative, healthy appearing, comfortable and no acute distress Orientation/consciousness: patient oriented x3 HEENT: Face and sinus: Yes normal facial exam Mouth: moist mucous membranes Neck: Neck: Yes normal visual inspection, Yes full ROM and Yes trachea midline Chest: Chest palpation & inspection: normal inspection of the chest Resp: Other: Clear to auscultation bilaterally no rales rhonchi or wheezes Effort & Inspection: normal respiratory effort, able to speak in complete sentences and no respiratory distress Cardio: Other: No S4; positive S1-S2; no S3 murmurs rubs or gallops GI: Other: Soft nontender nondistended normoactive bowel sounds Inspection: Yes normal to inspection Back/Spine/Pelvis: Cervical Spine: normal cervical lordosis Thoracic/Lumbar Spine: thoracic and lumbar spine normal to inspection Skin: General skin exam: no rashes or lesions noted Neuro: General: patient oriented x3, tone normal and moves all extremities Extrem: Other: No edema bilaterally General: Yes normal to inspection and Yes capillary refill normal Objective Data Labs 09/22/25 06:37 09/22/25 06:37 Labs: Laboratory Results - last 24 hr 09/22/25 06:37 WBC 10.9 H RBC 4.23 Hgb 9.9 L Hct 32.2 L MCV 76.1 L MCH 23.4 L MCHC 30.7 L RDW 17.5 H Plt Count 200 MPV 9.8 Immature Gran % (Auto) 0.5 H Neut % (Auto) 78.3 H Lymph % (Auto) 11.7 L [place] % (Auto) 6.6 Eos % (Auto) 2.3 Baso % (Auto) 0.6 Lymph # (Auto) 1.3 [place] # (Auto) 0.7 Eos # (Auto) 0.3 Baso # (Auto) 0.1 Abs Immat Gran (auto) 0.05 H Absolute Neuts (auto) 8.6 H Absolute Nucleated RBC 0.000 Nucleated RBC % (auto) 0.0 Sodium 140 Potassium 4.2 Chloride 109 H Carbon Dioxide 23 Anion Gap 12 BUN 30 H Creatinine 2.02 H Estim Creat Clear Calc 29.9 Estimated GFR 25 Fasting Glucose 93 Calcium 8.3 L Total Bilirubin 0.2 AST 44 H ALT 12 Alkaline Phosphatase 101 Total Protein 5.7 L Albumin 3.0 L Microbiology Microbiology Results: Microbiology 09/16/25 14:31 Blood - Venous Blood Culture - Final No growth after 5 days. 09/16/25 14:31 Blood - Venous Blood Culture - Final No growth after 5 days. 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 Progress Note: Quality Stroke Does the patient have a stroke diagnosis?: No
[2025-09-22 19:55] VITALS: BP 140/70; PULSE 79; RESP 16; TEMP 36.4; O2SAT 96
[2025-09-22 23:55] VITALS: BP 140/65; PULSE 78; RESP 16; TEMP 36.6; O2SAT 97
[2025-09-23 03:44] VITALS: BP 140/60; PULSE 75; RESP 16; TEMP 36.3; O2SAT 97
[2025-09-23 06:58] LABS: MANUAL DIFF FLAG NO
[2025-09-23 07:08] LABS: Hematocrit 32.5 % (37.0-47.0); Hemoglobin 10.0 g/dl (12.0-16.0); Imm Gran Abs Auto 0.05 X10*3/uL (0.00-0.03); Imm Gran Pct Auto 0.4 % (0.0-0.4); Lymphocytes Absolute Auto 1.3 X10*3/uL (1.2-4.9); Mean Corpuscular HGB Conc 30.8 g/dl (31.0-35.0); Mean Corpuscular Hemoglobin 23.5 pg (27.0-33.0); Mean Corpuscular Volume 76.3 fL (80.0-98.0); NRBC Abs Auto 0.000 X10*3/uL (0.0-0.012); NRBC Pct Auto 0.0 /100WBC (0.0-0.2); Platelet Count 194 X10*3/uL (160-400); Red Blood Count 4.26 X10*6/uL (4.20-5.50); White Blood Count 11.3 X10*3/uL (4.8-10.8)
[2025-09-23 07:18] LABS: Alanine Aminotransferase 14 U/L (0-31); Albumin Level 3.0 g/dL (3.5-5.0); Alkaline Phosphatase 102 U/L (39-117); Anion Gap 12 (12-20); Aspartate Amino Transferase 49 U/L (5-31); Blood Urea Nitrogen 25 mg/dL (9-16); Calcium 8.4 mg/dL (8.4-10.2); Carbon Dioxide 23 mmol/L (22-29); Chloride 108 mmol/L (96-108); Creatinine Clr Calc Pharmacy 36.6; Estimated Glomerular Filt Rate 31; Potassium 4.3 mmol/L (3.3-5.1); Sodium 139 mmol/L (135-145); Total Protein 5.9 g/dL (6.5-8.0)
[2025-09-23 07:19] VITALS: BP 163/78; PULSE 83; RESP 18; TEMP 36.8; O2SAT 97
--- NOTE | 2025-09-23 08:20 | P.CDIM_ITS ---
PROVIDER RESPONSE TEXT: To clarify, the appropriate diagnosis supported by the clinical indicators: Obesity Due to excess calories QUERY TEXT: PHYSICIAN'S DOCUMENTATION REQUEST Date of Query: 09/21/2025 09:01 AM EDT Patient Name: Deonna Bloom Admit Date: 09/16/2025 Dear Santo Newby DO, A review of the medical record indicates additional documentation may be needed. Please review below and update the documentation accordingly. Clinical Indicators: Height: 5ft 3in Weight: 96.8kg BMI: 37.8 If possible, please provide an associated diagnosis related to the abnormal BMI, such as: Overweight Obesity Due to excess calories Obesity Due to other cause Specify the other cause Morbid obesity Other (explain) Clinically unable to determine (explain) Thank you, Sheron Garsia, CCS, CDIS Use of terms such as suspected, likely, concern for, or probable (associated with a specific diagnosis that is being evaluated, monitored, or treated as if it exists) are acceptable and can be coded in the inpatient setting, when documented at the time of discharge. Please use your independent medical judgment in providing your response. THIS QUERY IS PART OF THE PERMANENT MEDICAL RECORD
[2025-09-23] MEDS: 0.9 % Sodium Chloride Flush 3 ML SYRINGE IVFLUSH ×2 (09:40→19:39)
[2025-09-23 11:43] VITALS: BP 142/62; PULSE 73; RESP 18; TEMP 36.9; O2SAT 97
--- NOTE | 2025-09-23 13:11 | MHC.CM.PN ---
CM MET/PT TO LET HER KNOW CM RESCHEDULED HER PCP APPT W/DR. ARASELI RUSSO FOR 09/28 AT 1:30PM, PT UNSURE SHE WOULD BE ABLE TO GET HERSELF THERE SHE DOESN'T HAVE TRANSPORTATION AND WOULD LIKE TO GO TO THE [facility] IT IS NEXT TO HER APT BUILDING. CM CONTACTED [facility] [phone], PT REGISTERED W/CENTER AND CM AWAITING CALL BACK FROM NURSE TO BOOK APPT.
[2025-09-23 15:10] VITALS: BP 158/69; PULSE 85; RESP 18; TEMP 36.5; O2SAT 95
--- NOTE | 2025-09-23 16:26 | HO.PM.IMPN ---
Subjective Subjective Date of Service: 09/23/25 Interval History: No acute issues overnight. Continues to have blood-tinged urine and nephrostomy bag. Minimal vaginal bleeding Review of Systems Denies chest pain Denies shortness of breath Denies nausea vomiting diarrhea Denies fever chills Physical Exam Vital Signs: Vital Signs: Last Vital Signs Temp 97.7 F 09/23/25 15:10 Pulse 85 09/23/25 15:10 Resp 18 09/23/25 15:10 BP 158/69 H 09/23/25 15:10 Pulse Ox 95 09/23/25 15:10 O2 Del Method Room Air 09/23/25 15:10 O2 Flow Rate 2 09/18/25 10:40 BMI result Body Mass Index 37.8 Const: Other: Awake alert oriented x3 in no acute distress Resp: Other: Clear to auscultation bilaterally no rales rhonchi or wheezes Cardio: Other: No S4; positive S1-S2; no S3 murmurs rubs or gallops GI: Other: Soft nontender nondistended normoactive bowel sounds Extrem: Other: No edema bilaterally Objective Data Active Medications Acetaminophen (Acetaminophen 325 Mg Tablet) 650 mg PO Q6H PRN PRN Reason: Pain, Mild 1-3,fever,headache Last Admin: 09/23/25 09:41 Dose: 650 mg Documented By: MARGUERITE Apixaban (Apixaban 5 Mg Tablet) 10 mg PO BID [facility]1983 Stop: 09/25/25 21:01 Last Admin: 09/23/25 09:40 Dose: 10 mg Documented By: MARGUERITE Calcium Carbonate (Calcium Carbonate 750 Mg Tab.Chew) 750 mg PO Q4H PRN PRN Reason: Heartburn Labetalol HCl (Labetalol Hcl 100 Mg Tablet) 300 mg PO BID FOR[facility]LY [facility], [facility]1983 Last Admin: 09/23/25 09:40 Dose: 300 mg Documented By: MARGUERITE Magnesium Hydroxide (Milk Of Magnesia 30 Ml Oral.Susp) 30 ml PO DAILY PRN PRN Reason: Constipation Melatonin (Melatonin 3 Mg Tablet) 6 mg PO BEDTIME PRN PRN Reason: Insomnia Ondansetron HCl (Ondansetron Hcl 4 Mg/2 Ml Vial) 4 mg IVPUSH Q4H PRN PRN Reason: Nausea and Vomiting Oxycodone HCl (Oxycodone Hcl Immed Release 5 Mg Tablet) 5 mg PO Q4H PRN PRN Reason: Pain, Moderate(Pain Scale 4-6) Sodium Chloride (0.9 % Sodium Chloride Flush 3 Ml Syringe) 3 ml IVFLUSH QSHIFT ORLY Last Admin: 09/23/25 15:22 Dose: Not Given Documented By: MARGUERITE Non-Admin Reason: Previously Administered Labs 09/23/25 06:46 09/23/25 06:46 Labs: Laboratory Results - last 24 hr 09/23/25 06:46 MCV 76.3 L MCH 23.5 L MCHC 30.8 L RDW 17.5 H Plt Count 194 MPV 9.4 Immature Gran % (Auto) 0.4 Neut % (Auto) 79.8 H Lymph % (Auto) 11.1 L [place] % (Auto) 5.8 Eos % (Auto) 2.3 Baso % (Auto) 0.6 Lymph # (Auto) 1.3 [place] # (Auto) 0.7 Eos # (Auto) 0.3 Baso # (Auto) 0.1 Abs Immat Gran (auto) 0.05 H Absolute Neuts (auto) 9.0 H Absolute Nucleated RBC 0.000 Nucleated RBC % (auto) 0.0 Anion Gap 12 Estim Creat Clear Calc 36.6 Estimated GFR 31 Fasting Glucose 96 Calcium 8.4 Total Bilirubin 0.2 AST 49 H ALT 14 Alkaline Phosphatase 102 Total Protein 5.9 L Albumin 3.0 L Assessment and Plan (1) Occlusion of ureter by external compression: Status: Acute (2) Acute deep vein thrombosis (DVT) of femoral vein of right lower extremity: Status: Acute (3) HTN (hypertension): Status: Acute Plan d4 for 65yo F with CKD and HTN presenting with weight loss and R abdominal/flank pain and found to have a 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 The psoas mass is encasing the iliac vein, causing an extensive RLE DVT. It is also adherent to the ureter, causing R hydroureteronephrosis. 1.Malignant psoas mass with hydroureteronephrosis - Oncology and Urology consulted; R nephrostomy done 09/17; CT-guided biopsy of psoas mass done 09/18; poorly differentiated carcinoma - was started on cefepime in ED in case mass represented abscess but no pus on biopsy; stopped cefepime 09/18 - pain control with IV morphine, PO oxycodone 2.Hematuria - s/p nephrostomy .. apixaban; -discussed with hematology given extensive clot burden would continue Eliquis -likely mechanical irritation from stent -follow CBC in a.m... If stable DC home 3.Malignancy-associated DVT -apixaban 10 mg bid x7d(09/25) then 5 mg bid 4.Renal insufficiency -appreciate renal input -follow renal/divalent 5.HTN - labetalol increased to b.i.d. -follow up clinically VTE ppx: on apixaban dispo: PT eval pending In my clinical judgment, the patient requires continued inpatient hospitalization for the following reasons: hematuria Quality Stroke Does the patient have a stroke diagnosis?: No VTE Prior VTE?: No VTE Risk Level:: Medical - moderate - high VTE Device Contraindication: N/A - Device Ordered VTE Drug Contraindication: N/A - Med Ordered
--- NOTE | 2025-09-23 18:15 | PM.PNNEP ---
Subjective Subjective Date of Service: 09/23/25 Interval history: Seen and examined,e vents noted Physical Exam Vital Signs: Vital Signs: Last Vital Signs Temp 97.7 F 09/23/25 15:10 Pulse 85 09/23/25 15:10 Resp 18 09/23/25 15:10 BP 158/69 H 09/23/25 15:10 Pulse Ox 95 09/23/25 15:10 O2 Del Method Room Air 09/23/25 15:10 O2 Flow Rate 2 09/18/25 10:40 BMI result Body Mass Index 37.8 Const: Other: Awake alert oriented x3 in no acute distress General: cooperative, healthy appearing, comfortable and no acute distress Orientation/consciousness: patient oriented x3 HEENT: Face and sinus: Yes normal facial exam Mouth: moist mucous membranes Neck: Neck: Yes normal visual inspection, Yes full ROM and Yes trachea midline Chest: Chest palpation & inspection: normal inspection of the chest Resp: Other: Clear to auscultation bilaterally no rales rhonchi or wheezes Effort & Inspection: normal respiratory effort, able to speak in complete sentences and no respiratory distress Cardio: Other: No S4; positive S1-S2; no S3 murmurs rubs or gallops GI: Other: Soft nontender nondistended normoactive bowel sounds Inspection: Yes normal to inspection Back/Spine/Pelvis: Cervical Spine: normal cervical lordosis Thoracic/Lumbar Spine: thoracic and lumbar spine normal to inspection Skin: General skin exam: no rashes or lesions noted Neuro: General: patient oriented x3, tone normal and moves all extremities Extrem: Other: No edema bilaterally General: Yes normal to inspection and Yes capillary refill normal Objective Data Labs 09/23/25 06:46 09/23/25 06:46 Labs: Laboratory Results - last 24 hr 09/23/25 06:46 WBC 11.3 H RBC 4.26 Hgb 10.0 L Hct 32.5 L MCV 76.3 L MCH 23.5 L MCHC 30.8 L RDW 17.5 H Plt Count 194 MPV 9.4 Immature Gran % (Auto) 0.4 Neut % (Auto) 79.8 H Lymph % (Auto) 11.1 L [place] % (Auto) 5.8 Eos % (Auto) 2.3 Baso % (Auto) 0.6 Lymph # (Auto) 1.3 [place] # (Auto) 0.7 Eos # (Auto) 0.3 Baso # (Auto) 0.1 Abs Immat Gran (auto) 0.05 H Absolute Neuts (auto) 9.0 H Absolute Nucleated RBC 0.000 Nucleated RBC % (auto) 0.0 Sodium 139 Potassium 4.3 Chloride 108 Carbon Dioxide 23 Anion Gap 12 BUN 25 H Creatinine 1.65 H Estim Creat Clear Calc 36.6 Estimated GFR 31 Fasting Glucose 96 Calcium 8.4 Total Bilirubin 0.2 AST 49 H ALT 14 Alkaline Phosphatase 102 Total Protein 5.9 L Albumin 3.0 L Microbiology Microbiology Results: Microbiology 09/16/25 14:31 Blood - Venous Blood Culture - Final No growth after 5 days. 09/16/25 14:31 Blood - Venous Blood Culture - Final No growth after 5 days. Procedures Date of Service Date of Service: 09/23/25 Assessment & Plan Assessment and plan (1) Renal insufficiency: Status: Acute (2) HTN (hypertension): Status: Acute Plan SARAI on CKD vs CKD: records from 2019 reveals SCr 1.8 to 2.1 suggest adv CKD and prior w/u was HTN and now with R Obs s/p NTube Decr Scr is encouraging Obs R Kidney: IR- right NTube- draining urine pt concerned about poor voiding urine volume from bladder psoas mass -per ONC- likely sarcoma or a metastatsis from uterine primary; right leg DVT - prothrombotic from malignancy - on AC ? need for IVC filter HTN- cont labetalol and track BP REC: cont tot track renal func, avoid NToxins; titrate up BP meds; d/w Urol and rad as may need additional imaging if UOP from bladder remains poor Will follow w team Time Spent With Patient Time: Total time managing care of this patient today ____ minutes. Progress Note: Quality Stroke Does the patient have a stroke diagnosis?: No
[2025-09-23 19:26] VITALS: BP 162/72; PULSE 80; RESP 18; TEMP 37.2; O2SAT 96
[2025-09-23 23:41] VITALS: BP 154/69; PULSE 79; RESP 18; TEMP 36.3; O2SAT 98
[2025-09-24] VITALS (7 sets, daily range): BP systolic 119–170; BP diastolic 57–78; PULSE 73–87; RESP 18; TEMP 36.3–37; O2SAT 94–97
[2025-09-24 07:15] LABS: MANUAL DIFF FLAG NO
[2025-09-24 07:28] LABS: Hematocrit 32.2 % (37.0-47.0); Hemoglobin 9.7 g/dl (12.0-16.0); Imm Gran Abs Auto 0.04 X10*3/uL (0.00-0.03); Imm Gran Pct Auto 0.4 % (0.0-0.4); Lymphocytes Absolute Auto 1.3 X10*3/uL (1.2-4.9); Mean Corpuscular HGB Conc 30.1 g/dl (31.0-35.0); Mean Corpuscular Hemoglobin 23.4 pg (27.0-33.0); Mean Corpuscular Volume 77.6 fL (80.0-98.0); NRBC Abs Auto 0.000 X10*3/uL (0.0-0.012); NRBC Pct Auto 0.0 /100WBC (0.0-0.2); Platelet Count 210 X10*3/uL (160-400); Red Blood Count 4.15 X10*6/uL (4.20-5.50); White Blood Count 10.6 X10*3/uL (4.8-10.8)
[2025-09-24 07:34] LABS: Alanine Aminotransferase 14 U/L (0-31); Albumin Level 3.0 g/dL (3.5-5.0); Alkaline Phosphatase 99 U/L (39-117); Anion Gap 13 (12-20); Aspartate Amino Transferase 41 U/L (5-31); Blood Urea Nitrogen 26 mg/dL (9-16); Calcium 8.5 mg/dL (8.4-10.2); Carbon Dioxide 23 mmol/L (22-29); Chloride 108 mmol/L (96-108); Creatinine Clr Calc Pharmacy 35.1; Estimated Glomerular Filt Rate 30; Potassium 4.2 mmol/L (3.3-5.1); Sodium 140 mmol/L (135-145); Total Protein 6.0 g/dL (6.5-8.0)
--- NOTE | 2025-09-24 08:04 | P.CDIM_ITS ---
PROVIDER RESPONSE TEXT: To clarify, the appropriate diagnosis supported by the clinical indicators: Acute renal Injury (SARAI) QUERY TEXT: PHYSICIAN'S DOCUMENTATION REQUEST Date of Query: 09/24/2025 07:44 AM EDT Patient Name: Deonna Bloom Admit Date: 09/16/2025 Dear Santo Newby DO, A review of the medical record indicates additional documentation may be needed. Please review below and update the documentation accordingly. Clinical Indicators: Progress notes within the Plan: Renal insufficiency Nephrology progress notes 09/19 & 09/23 - Assessment and Plan List: Renal insufficiency Plan: SARAI on CKD vs. CDK: records from 2019 reveals SCr 1.8 to 2.1 suggest adv CKD Poor voiding urine volume from bladder - Bun 26 Cr 1.73/ 2.12/1.72 Gfr 30 Please clarify which of the following accurately represents the patient's renal status for clarity: Acute renal Injury (SARAI) Acute renal insufficiency (SARAI) Other (explain) Clinically unable to determine (explain) Thank you, Sheron Garsia, CCS, CDIS Use of terms such as suspected, likely, concern for, or probable (associated with a specific diagnosis that is being evaluated, monitored, or treated as if it exists) are acceptable and can be coded in the inpatient setting, when documented at the time of discharge. Please use your independent medical judgment in providing your response. THIS QUERY IS PART OF THE PERMANENT MEDICAL RECORD
[2025-09-24] MEDS: 0.9 % Sodium Chloride Flush 3 ML SYRINGE IVFLUSH ×2 (09:32→20:04)
--- NOTE | 2025-09-24 13:31 | P.DS_ITS ---
DS: Providers Provider Date of Service: 09/24/25 Date of admission: 09/16/25 15:37 Date of discharge: 09/24/25 Primary care physician: Meg Davison MD Consults: 09/16/25 16:47 Consult to Nephrology Routine Consulting Provider: [facility] Reason for consultation: SARAI/CKD 09/16/25 17:18 Consult to Hematology / Oncology [place]ine [place]ing [place] [facility] [facility] [place] Reason for consultation: psoas mass, likely malignant Consult to Urology Routine Consulting Provider[place] [facility] [place] Reason for consultation: malignant hydroureteronephrosis DS: Diagnosis Discharge Diagnosis (1) Renal insufficiency: Status: Acute (2) HTN (hypertension): Status: Acute DS: Summary Hospital Course Hospital Course: 65yo F with HTN and CKD unknown stage who presents with several months of intermittent but increasing pain of the R flank and RLQ and now the RLE as well. She was seen here on 08/10 in the ED and a noncontrast CT at the time showed an 11 by 8 by 8 cm psoas fluid collection; differential included hematoma, phlegmon or developing abscess. She did not want to stay for further imaging or other workup and was discharged on doxycycline and metronidazole. She stopped both after 4 days due to nausea and vomiting. Pain has increased and she has lost weight involuntarily but cannot quantify how much. Urine is darker as well. Here in the ED, a contrast CT showed increase in size of the right psoas fluid collection which enhances with contrast. The mass encases and narrows the right external iliac artery and vein and is causing a DVT of the R iliac vein extending to the femoral veins. There are enlarge right external iliac lymph nodes. The mid-right ureter is adhesed to the mass, with right hydroureteronephrosis. There are partially necrotic masses within the uterus. 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 US of the RLE showed extensive right leg DVT from the right common femoral to popliteal veins. Serum creatinine 1.73; previously 1.63 on 08/10/25 and 1.9 on 06/18/19. Hospital Course Patient admitted to telemetry where monitor failed to demonstrate any acute dysrhythmias. Seen in consultation by Nephrology; on 09/17/2025 patient underwent right percutaneous nephrostomy tube without issue. She was started on Eliquis for DVT. A biopsy was undertaken of the cell last mass which was found to be poorly differentiated carcinoma. Subsequent to the initiation of Eliquis nephrostomy tube began to drain bloody urine. This began to clear over time and was thought to be secondary to mechanical irritation. Her hemoglobin stayed stable throughout. She did have some minimal vaginal bleeding that was self- limiting. At this point in time she is medically acceptable to be discharged Eliquis and will follow up with Oncology and Nephrology on an outpatient basis Time Attestation Discharge Coordination Time (in mins): 35 Quality: Safe Use of Opioids Does Pt have an Active Cancer Diagnosis on the Problem List?: No Quality: Stroke Does the patient have a stroke diagnosis?: No Physical Exam Vital Signs: Vital Signs: Last Vital Signs Temp 98.6 F 09/24/25 11:22 Pulse 77 09/24/25 11:22 Resp 18 09/24/25 11:22 BP 119/57 L 09/24/25 11:22 Pulse Ox 94 09/24/25 11:22 O2 Del Method Room Air 09/24/25 11:22 O2 Flow Rate 2 09/18/25 10:40 BMI result Body Mass Index 37.8 Const: Other: Awake alert oriented x3 in no acute distress Resp: Other: Clear to auscultation bilaterally no rales rhonchi or wheezes Cardio: Other: No S4; positive S1-S2; no S3 murmurs rubs or gallops GI: Other: Soft nontender nondistended normoactive bowel sounds Extrem: Other: No edema bilaterally DS: Data Data Completed and Pending Completed studies during hospitalization [Text1]: Pending at discharge 09/18/25 10:53 Surgical Path [Surgical] [PTH] Routine Labs on day of discharge: Laboratory Results - last 24 hr 09/24/25 06:59 WBC 10.6 RBC 4.15 L Hgb 9.7 L Hct 32.2 L MCV 77.6 L MCH 23.4 L MCHC 30.1 L RDW 17.4 H Plt Count 210 MPV 9.8 Immature Gran % (Auto) 0.4 Neut % (Auto) 78.0 H Lymph % (Auto) 12.4 L [place] % (Auto) 6.0 Eos % (Auto) 2.6 Baso % (Auto) 0.6 Lymph # (Auto) 1.3 [place] # (Auto) 0.6 Eos # (Auto) 0.3 Baso # (Auto) 0.1 Abs Immat Gran (auto) 0.04 H Absolute Neuts (auto) 8.3 Absolute Nucleated RBC 0.000 Nucleated RBC % (auto) 0.0 Sodium 140 Potassium 4.2 Chloride 108 Carbon Dioxide 23 Anion Gap 13 BUN 26 H Creatinine 1.72 H Estim Creat Clear Calc 35.1 Estimated GFR 30 Fasting Glucose 100 H Calcium 8.5 Total Bilirubin 0.3 AST 41 H ALT 14 Alkaline Phosphatase 99 Total Protein 6.0 L Albumin 3.0 L Discharge Plan Discharge Anticipated Discharge Date/Time: 09/24/25 13:25 Patient Disposition: Home, Self-Care Discharge Diagnosis: Acute DVT right lower extremity Discharge Medications: New labetalol 100 mg Tablet 300 mg PO BID Qty: 60 0RF Eliquis 5 mg tablet 5 mg PO BID Qty: 60 0RF Discontinued labetalol 300 mg tablet 300 mg PO DAILY@1300 Discharge Orders: Discharge Order (Routine); Ordered 09/24/25 Ordered By: Santo Newby Diet: Advance to usual diet Activity on Discharge: As tolerated Stand Alone Forms: Patient Portal Discharge page Print Language: Romanian Care Plan Goals: Eliquis 5 mg twice daily as well as labetalol 300 mg S daily has been added to your regimen Health Concerns: Follow up with Nephrology and Oncology as scheduled. Plan of Treatment: Follow up with PCP next available Assessment: See discharge summary
--- NOTE | 2025-09-24 13:39 | MHC.CM.PN ---
Addendum entered by Kristi Davidson 09/24/25 14:33: Patient wants a walker with a seat to go home with; per MD, he can only write a script for a regular walker. CM and Patient spoke with Patient's Sister/Melanie on Patient's cell phone. Per that conversation, Sister will go to [facility] [address] in [place], when she gets out of work, to purchase a walker with a seat (Fellow CM/Chrissy spoke with [facility] today, who stated that they can provide Patient will a walker with a seat and they provided pricing for different models that CM gave to Patient). Once this walker is purchased, Sister will then come to the hospital and transport Patient to home(Patient declined an ambulance ride to home and STR). Patient has an appointment with her new PCP/Dr. MAGALLANES on 09/28/2025 at 1:30 and once seen by the PCP, the PCP can order VNA, as appropriate.MD is aware. Original Note: Patient has been medically cleared for dc to home today, self care.
[2025-09-25 03:07] VITALS: BP 143/68; PULSE 70; RESP 18; TEMP 36.2; O2SAT 98
[2025-09-25 07:49] VITALS: BP 158/80; PULSE 81; RESP 20; TEMP 37.1; O2SAT 97
[2025-09-25] MEDS: 0.9 % Sodium Chloride Flush 3 ML SYRINGE IVFLUSH (10:23)
--- NOTE | 2025-09-25 11:45 | MHC.CM.PN ---
Addendum entered by Kristi Davidson 09/25/25 13:56: Per Patient, Sister is on her way now, with the rollator and will transport Patient to home. Original Note: Patient's Sister was not able to get the rollator yesterday. Per Patient, Sister has ordered the rollator from [facility] and she is having it delivered to her place of work. Sister vs S for transport to home today. CM will follow.
[2025-09-25 12:00] VITALS: BP 141/70; PULSE 77; RESP 20; TEMP 37; O2SAT 97
[2025-09-25 12:08] LABS: Carcinoembryonic Antigen 3.00 ng/mL
--- NOTE | 2025-09-25 12:40 | PM.DS ---
DS: Providers Provider Date of Service: 09/25/25 Date of admission: 09/16/25 15:37 Date of discharge: 09/25/25 Primary care physician: Mge Davison MD Consults: 09/16/25 16:47 Consult to Nephrology Routine Consulting Provider: [facility] Reason for consultation: SARAI/CKD 09/16/25 17:18 Consult to Hematology / Oncology [place]ine [place] [facility] [place] Reason for consultation: psoas mass, likely malignant Consult to Urology Routine Consulting [place] [facility] [facility] Reason for consultation: malignant hydroureteronephrosis DS: Diagnosis Discharge Diagnosis (1) Renal insufficiency: Status: Acute (2) HTN (hypertension): Status: Acute DS: Summary Hospital Course Hospital Course: 65yo F with HTN and CKD unknown stage who presents with several months of intermittent but increasing pain of the R flank and RLQ and now the RLE as well. She was seen here on 08/10 in the ED and a noncontrast CT at the time showed an 11 by 8 by 8 cm psoas fluid collection; differential included hematoma, phlegmon or developing abscess. She did not want to stay for further imaging or other workup and was discharged on doxycycline and metronidazole. She stopped both after 4 days due to nausea and vomiting. Pain has increased and she has lost weight involuntarily but cannot quantify how much. Urine is darker as well. Here in the ED, a contrast CT showed increase in size of the right psoas fluid collection which enhances with contrast. The mass encases and narrows the right external iliac artery and vein and is causing a DVT of the R iliac vein extending to the femoral veins. There are enlarge right external iliac lymph nodes. The mid-right ureter is adhesed to the mass, with right hydroureteronephrosis. There are partially necrotic masses within the uterus. 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 US of the RLE showed extensive right leg DVT from the right common femoral to popliteal veins. Serum creatinine 1.73; previously 1.63 on 08/10/25 and 1.9 on 06/18/19. Hospital Course Patient admitted to telemetry where monitor failed to demonstrate any acute dysrhythmias. Seen in consultation by Nephrology; on 09/17/2025 patient underwent right percutaneous nephrostomy tube without issue. She was restarted on Eliquis for DVT. 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 Subsequent to the initiation of Eliquis nephrostomy tube began to drain bloody urine. This began to clear over time and was thought to be secondary to mechanical irritation. Her hemoglobin has stayed stable throughout. She did have some minimal vaginal bleeding that was self-limiting. At this point in time she is medically acceptable to be discharged Eliquis and will follow up with Oncology and Nephrology on an outpatient basis Time Attestation Discharge Coordination Time (in mins): 40 Quality: Safe Use of Opioids Does Pt have an Active Cancer Diagnosis on the Problem List?: No Quality: Stroke Does the patient have a stroke diagnosis?: No Physical Exam Vital Signs: Vital Signs: Last Vital Signs Temp 98.6 F 09/25/25 12:00 Pulse 77 09/25/25 12:00 Resp 20 09/25/25 12:00 BP 141/70 H 09/25/25 12:00 Pulse Ox 97 09/25/25 12:00 O2 Del Method Room Air 09/25/25 12:00 O2 Flow Rate 2 09/18/25 10:40 BMI result Body Mass Index 37.8 DS: Data Data Completed and Pending Completed studies during hospitalization [Text1]: Pending at discharge 09/18/25 10:53 Surgical Path [Surgical] [PTH] Routine Labs on day of discharge: Laboratory Results - last 24 hr 09/25/25 11:24 Carcinoembryonic Ag 3.00 Discharge Plan Discharge Anticipated Discharge Date/Time: 09/25/25 12:39 Patient Disposition: Home Health Service Discharge Diagnosis: Acute DVT right lower extremity Discharge Medications: New labetalol 100 mg Tablet 300 mg PO BID Qty: 60 0RF Eliquis 5 mg tablet 5 mg PO BID Qty: 60 0RF Discontinued labetalol 300 mg tablet 300 mg PO DAILY@1300 Discharge Orders: Discharge Order (Routine); Ordered 09/24/25 Ordered By: Santo Newby Diet: Advance to usual diet Activity on Discharge: As tolerated Stand Alone Forms: Patient Portal Discharge page Print Language: Croatian Care Plan Goals: Eliquis 5 mg twice daily as well as labetalol 300 mg S daily has been added to your regimen Health Concerns: Follow up with Nephrology and Oncology as scheduled. Plan of Treatment: Follow up with PCP next available Assessment: See discharge summary Patient Instructions: Labetalol (By mouth), Apixaban (By mouth) (Eliquis)
--- NOTE | 2025-09-25 12:47 | P.F2F_ITS ---
Service Date Service Date: 09/25/25 Encounter Date of encounter: 09/25/25 Reasons for Services Signs and symptoms assessed: weakness related to hospitalization Reason for [facility]: postoperative assessment and/or care and teach disease management Homebound: Leaving the home is medically contraindicated at this time without the asist of a device and/or another person due th the listed conditions above and below. Reason homebound: leg weakness and unable to drive Homebound supporting statement: homebound due to weakness related to hospilization , active malignanct, nephrostomy tube in place and therefore needs the assistance of another person Certification: Based on the above findings, I certify that this patient is confined to the home and needs intermittent [facility] care, physical therapy and/or speech therapy, or continues to need occupational therapy. The patient is under my care, and I have initiated the establishment of the plan of care. The patient will be followed by a physician who will periodically review the plan of care. Time Spent With Patient Time: Total time managing care of this patient today ____ minutes.
[2025-09-28 17:18] LABS: CA-125 131 U/mL (<35)
== END 2025-09-25 14:28 | disposition home health service (06) | DRG 844 ==
LOC: HO.ED 11:53 → HO.EDOVER 15:51 → HO.IMC 09-17 02:14
PROVIDERS: Hospitalist; Internal Medicine Medical Oncology; Internal Medicine Nephrology; Radiology Diagnostic Radiology; Student in an Organized Health Care Education/Training Program; Admitting Provider Family Medicine; Emergency Provider Emergency Medicine; PCP Internal Medicine; Visit Provider Internal Medicine
PROC: 0T9330Z Drainage of Right Kidney Pelvis with Drainage Device, Percutaneous Approach (ICD-10-PCS; principal; 2025-09-17 13:00)
DX: C79.89 Secondary malignant neoplasm of other specified sites (principal); I82.411 Acute embolism and thrombosis of right femoral vein; I82.421 Acute embolism and thrombosis of right iliac vein; N13.39 Other hydronephrosis; I96 Gangrene, not elsewhere classified; N17.9 Acute kidney failure, unspecified; E66.09 Other obesity due to excess calories; Z68.37 Body mass index [BMI] 37.0-37.9, adult; R31.9 Hematuria, unspecified; I12.9 Hypertensive chronic kidney disease with stage 1 through stage 4 chronic kidney disease, or unspecified chronic kidney disease; N18.30 Chronic kidney disease, stage 3 unspecified; C55 Malignant neoplasm of uterus, part unspecified; Z79.01 Long term (current) use of anticoagulants; Z79.899 Other long term (current) drug therapy
CPT/HCPCS: 36415; 49180; 50432; 74177; 77012; 80048; 80053; 82378; 82570; 83605; 84300; 85025; 85027; 85610; 85730; 86140; 86301; 86304; 87040; 88304; 88341; 88342; 93971; 97162; 99152; 99153; 99285; C1769; C1887; C1894; C2625; J0360; J0690; J0692; J1644; J2003; J2250; J3010; Q9967

== ENCOUNTER → 2025-09-16 11:43 | Outpatient (BNV) | payer MEDICARE, SELFPAY | PROVIDERS: Emergency Provider Emergency Medicine; Visit Provider Radiology Diagnostic Radiology | DX: K68.12 Psoas muscle abscess (principal); I82.401 Acute embolism and thrombosis of unspecified deep veins of right lower extremity | CPT/HCPCS: 74177; 93971 ==

== ENCOUNTER 2025-09-16 15:37 | Outpatient (BNV) | payer MEDICARE, SELFPAY | END 2025-09-18 10:06 | PROVIDERS: Admitting Provider Family Medicine; Emergency Provider Emergency Medicine; PCP Internal Medicine; Visit Provider Radiology Diagnostic Radiology | DX: K68.12 Psoas muscle abscess (principal); C54.1 Malignant neoplasm of endometrium | CPT/HCPCS: 49180; 77012 ==

== ENCOUNTER 2025-09-16 15:37 | Outpatient (BNV) | payer MEDICARE, SELFPAY | END 2025-09-17 12:53 | PROVIDERS: Admitting Provider Family Medicine; Emergency Provider Emergency Medicine; Visit Provider Student in an Organized Health Care Education/Training Program | DX: Z46.6 Encounter for fitting and adjustment of urinary device (principal); R19.00 Intra-abdominal and pelvic swelling, mass and lump, unspecified site; N13.1 Hydronephrosis with ureteral stricture, not elsewhere classified; Z96.0 Presence of urogenital implants | CPT/HCPCS: 50432 ==

== ENCOUNTER → 2025-09-16 15:37 | Outpatient (BNV) | payer MEDICARE, SELFPAY | PROVIDERS: Admitting Provider Family Medicine; Emergency Provider Emergency Medicine; PCP Internal Medicine; Visit Provider Urology | DX: N13.5 Crossing vessel and stricture of ureter without hydronephrosis (principal) | CPT/HCPCS: 99222 ==

== ENCOUNTER → 2025-09-16 15:37 | Outpatient (BNV) | payer MEDICARE, SELFPAY | PROVIDERS: Admitting Provider Family Medicine; Emergency Provider Emergency Medicine; Visit Provider Family Medicine | DX: N13.5 Crossing vessel and stricture of ureter without hydronephrosis (principal); N85.8 Other specified noninflammatory disorders of uterus; I82.411 Acute embolism and thrombosis of right femoral vein | CPT/HCPCS: 99232 ==

== ENCOUNTER → 2025-09-16 15:37 | Outpatient (BNV) | payer MEDICARE, SELFPAY | PROVIDERS: Admitting Provider Family Medicine; Emergency Provider Emergency Medicine; PCP Internal Medicine; Visit Provider Internal Medicine | DX: I82.401 Acute embolism and thrombosis of unspecified deep veins of right lower extremity (principal); R19.09 Other intra-abdominal and pelvic swelling, mass and lump; R59.0 Localized enlarged lymph nodes; R10.31 Right lower quadrant pain | CPT/HCPCS: 99222 ==

== ENCOUNTER 2025-09-28 13:07 | Outpatient (AMB) | payer MEDICARE, SELFPAY ==
--- NOTE | 2025-09-28 13:14 | A.OFFPC_ITS ---
Vital Signs 09/28/25 13:16 Height 5 ft 2.99 in Weight 195 lb 8 oz BMI 34.6 BP 140/60 H Blood Pressure Location Lt brachial Position Sitting Pulse 83 Pulse Source Pulse Oximeter Temp 97.1 F Temp Source Temporal Artery Scan Pulse Oximetry (%) 99 Oxygen Delivery Method Room Air Intake Visit Reasons: CAGE CLERK/Mass in Stomach/Discharge f/u [facility] Intake Note: Patient is a new patient here to establish care for Mass in stomach, HTN, DVT, Mass of Uterus. Transferring care from Dr Gonzales ([facility] [place]). Medical records have been requested and have received. Seam Stay Stitcher Required: No Oil Scout: Not Required per policy Accompanied by: Self / Same As Patient Allergies amoxicillin Allergy (Intermediate, Verified 09/28/25 13:22) Unknown codeine (CODEINE) Allergy (Intermediate, Verified 09/28/25 13:22) UNKNOWN Penicillins (PENICILLINS) Allergy (Intermediate, Verified 09/28/25 13:22) UNKNOWN clonidine Allergy (Unknown, Verified 09/28/25 13:22) tongue/facial swelling terazosin (TERAZOSIN) Allergy (Unknown, Verified 09/28/25 13:22) UNKNOWN, leg pain ? swelling valsartan (VALSARTAN) Allergy (Unknown, Verified 09/28/25 13:22) UNKNOWN, edema acetaminophen (Percocet) Adverse Reaction (Unknown, Verified 09/28/25 13:22) N/V amlodipine Adverse Reaction (Unknown, Verified 09/28/25 13:22) Difficulty Breathing oxycodone (Percocet) Adverse Reaction (Unknown, Verified 09/28/25 13:22) N/V penicillin V Adverse Reaction (Unknown, Verified 09/28/25 13:22) N/V Codeine Sulfate Adverse Reaction (Unknown, Uncoded 08/10/25 11:15) N/V Medication List - Last Reconciled 09/28/25 by Meg Davison MD apixaban (Eliquis) 5 mg PO BID labetalol 300 mg (3 x 100 mg) PO BID Tobacco use date assessed: 09/28/25 Fall risk assessment: No Falls in past year Last assessed Fall Risk: 09/28/25 Dental Screening Dental Screen Date: 09/28/25 Did you have a dental visit in the last 12 months?: No Did you have a dental problem in the last 6 months where you did not have access to dental care?: No Was dental information given to patient?: No HPI HPI Comments History of Present Illness Details 65-year-old female presenting for transi tional care management following hospitalization from September 16 to September 25. She was admitted for evaluation of pain in her leg and back. A CT scan on August 10 revealed a psoas muscle mass, which was further evaluated during the admission. Imaging during hospitalization showed the mass was obstructing her right ureter, causing right hydroureteronephrosis, for which a nephrostomy tube was placed on September 17. The mass was also found to be compressing the right external iliac artery and vein, resulting in a deep vein thrombosis (DVT) extending from the iliac to the femoral vein. A biopsy of the psoas mass confirmed a diagnosis of cancer, with the origin suspected to be uterine. The patient has a history of hypertension and is currently taking labetalol prescribed by her curator of education. She has a history of intolerance to other antihypertensives, including difficulty breathing with amlodipine, which led to its discontinuation by her previous PCP. She also has a history of kidney failure in 2015, though she is not on dialysis, and a history of anemia. For health maintenance, the patient declines all vaccinations, including tetanus and COVID-19. She had shingles in 2015 after a hospital admission. She has not undergone a colonoscopy, stating she has not felt well enough since 2015, and also defers a DEXA scan for osteoporosis screening at this time due to her current medical issues. [facility] Medical History (Updated 09/28/25 @ 14:33 by Meg Davison MD) HTN (hypertension) Renal insufficiency Social History (Updated 09/28/25 @ 13:24 by THONY Paul) Household Members: None Housing: Apartment Do you presently have visiting nurse or other home services: No Alcohol intake: never Comment: low fall risk Patient Tobacco Use Status: Former Tobacco user e-Cigarette/Vaping Use: Never Used Second Hand Smoke Exposure: Yes service: No Current occupational status: retired Cognitive needs: Yes (Walker) Hearing needs: No Vision needs: Yes (Glasses) Questionnaire PHQ-9 Over the last 2 weeks, how often have you been bothered by any of the following problems? 1. Little interest or pleasure in doing things: not at all 2. Feeling down, depressed, or hopeless: not at all 3. Trouble falling or staying asleep, or sleeping too much: not at all 4. Feeling tired or having little energy: not at all 5. Poor appetite or overeating: not at all 6. Feeling bad about yourself - or that you are a failure or have let yourself or your family down: not at all 7. Trouble concentrating on things, such as reading the newspaper or watching television: not at all 8. Moving or speaking so slowly that other people could have noticed. Or the opposite - being so fidgety or restless that you have been moving around a lot more than usual: not at all 9. Thoughts that you would be better off or of hurting yourself in some way: not at all Total score: 0 Depression Screening Interpretation: Negative Depression Screening Done: Yes Source: Developed by Drs. Keagan Rivas, Michelle Kaba, Orlin Guzman and colleagues, with an educational anh from [employer] Thrive Questionnaire Date Thrive assessed: 09/17/25 I am a: Patient What is your living situation today?: I have a steady place to live Within the past 12 months, did the food you bought not last and you didn't have the money to get more?: Never true Within the past 12 months, did you worry whether your food would run out before you got money to buy more?: Never true Do you have trouble paying for medicines?: No Do you have trouble getting transportation to medical appointments?: No Do you have trouble paying your heating and electricity bill?: No Do you have trouble taking care of your child, family member or friend?: No Do you have trouble with day-to-day activities such as bathing, preparing meals, shopping, managing finances, etc.?: No Are you currently unemployed and looking for a job?: No Are you interested in more education?: No Please select the resources that you would like help with: None Currently or been in a relationship where the following occur: No concerns reported THRIVE Score: 0 AUDIT C Alcohol Use Questionnaire (AUDIT-C) 1. How often do you have a drink containing alcohol?: Never Total Score: 0 GLORIA-7 AMB Questionnaire GLORIA-7 Date GLORIA - 7 assessed: 09/28/25 Feeling nervous, anxious, or on edge: 0 = Not at all Not being able to stop or control worryin = Not at all Worrying too much about different things: 0 = Not at all Trouble relaxin = Not at all Being so restless that it is hard to sit still: 0 = Not at all Becoming easily annoyed or irritable: 0 = Not at all Feeling afraid as if something awful might happen: 0 = Not at all Total GLORIA-7 score (0-4 normal; 5-9 mild; 10-14 moderate; 15-21 severe): 0 Source: Developed by Drs. Keagan Rivas, Michelle Kaba, Orlin Guzman and colleagues, with an educational anh from [employer] Review of Systems Const Details: As per HPI. Physical exam (Primary Care) Vital Signs: Last Vital Signs Temp 97.1 F 09/28/25 13:16 Pulse 83 09/28/25 13:16 BP 140/60 H 09/28/25 13:16 Pulse Ox 99 09/28/25 13:16 Oxygen Delivery Method Room Air 09/28/25 13:16 BMI result Body Mass Index 34.6 Tobacco/Smoking Status: Tobacco use Status Tobacco use date assessed 09/28/25 09/28/25 13:25 Patient Tobacco Use Status Former Tobacco user 09/28/25 13:25 e-Cigarette/Vaping Use Never Used 09/28/25 13:25 PHQ-9: PHQ-9 Score PHQ-9: Total score 0 09/28/25 13:50 Depression Screening Interpretation: Negative Thrive Assessment: Date of Thrive Assessment Date Thrive assessed 09/17/25 09/28/25 13:25 Currently or been in a relationship where the following occur: No concerns reported Const Other: Pertinent findings are in BOLD GENERAL APPEARANCE NAD, Obese, activity normal for age, well developed/ well nourished, no cyanosis, pallor, or diaphoresis. EYES lids/conjunctiva normal. EARS/NOSE/THROAT Mucous membranes moist, nares normal, lips/teeth normal uvula midline without oral pharyngeal erythema, exudate or swelling TMs normal bilaterally. No lymphangitis/lymphedema. HEAD/NECK normocephalic atraumatic, no facial trauma, neck is supple. RESPIRATORY respiratory effort normal, speaks in full sentences, no tripod position, no accessory muscle use. Lungs clear to auscultation without rhonchi, wheezes, rales CARDIAC Regular rate and rhythm, no edema. ABDOMINAL Soft, ND/NT. No evidence of fluid wave. No pulsatile masses on exam, rebound tenderness, Powers sign or pain over Mcburney's point. MUSCLES/EXTREMITIES No abnormal range of motion, no swelling. Generalized weakness. Difficulty in lifting right leg. SKIN Warm, pink and dry. No rashes, dermatoses, petechiae or lesions. Multiple bruises on the patient bilateral upper extremities. Nephrostomy tube in place with no leakage, bleeding or signs of infection. NEUROLOGICAL Speech is clear and appropriate. Normal level of consciousness. Gait and coordination are normal. 5/5 strength in all extremities. PSYCH Normal mood and affect. 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 - A stat referral will be placed to Nephrology (Dr. Diez) for urgent follow-up and management of the nephrostomy tube. Nephrostomy tube checked and it has been draining clear urine with no blood, pus or other fluids. (2) Healthcare maintenance: Code(s): Z00.00 - Encounter for general adult medical examination without abnormal findings Category: Medical Plan: CBC, CMP, Lipid panel, A1C, TSH w T4, vit D. Ordered today. Shingles 2 doses when >50 yo Declined. COVID: two doses. Declined. Tdap: Declined. Pneumococcal: >50 yo. 18-49 with CKD, lung disease, weakened immune system, Heart disease, DM, cochlear implant. Declined. Flu vaccine: Declined. Colonoscopy: 45-75. Currently with recent diagnosis of uterine cancer and on Anticoagulation. We will deferr the conversation after the patient follows with Oncology and Gynecology. AAA: 65 -75. Patient had recent CT scan with no Abdominal aortic aneurysm. CT lun - 80. Not indicated. HPV: Aged out. HIV: Ordered today. HBV: Ordered today. HCV: Ordered today. Dexa: Patient deferred discussion about anything else besides her new diagnosis of cancer at this time. Mammogram: Patient deferred discussion about anything else besides her new diagnosis of cancer at this time. (3) Anemia: Code(s): D64.9 - Anemia, unspecified Category: Medical Qualifiers: Anemia type: unspecified type Qualified Code(s): D64.9 - Anemia, unspecified Plan: Could be due to multiple conditions including renal disease, cancer, or iron deficiency. We will get anemia W-U with iron profile, folate, B12, retic count, Homcystein and MMA. (4) Mass of uterus: Comment: on biopsy Code(s): N85.8 - Other specified noninflammatory disorders of uterus Category: Medical Plan: - The patient has a new diagnosis of cancer, suspected to be of uterine origin, found on workup for leg and back pain. - The mass has resulted in right hydronephrosis and a right DVT. - F-U Ca 19-9 and CA 125. CEA was negative. - Stat referrals will be placed for Gynecologic Oncology and Medical Oncology. - The patient is encouraged to schedule an appointment with Dr. Nory Tan, a gynecologic oncologist at [facility]. 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 - A stat referral will be placed to Nephrology (Dr. Diez) for urgent follow-up and management of the nephrostomy tube. Nephrostomy tube checked and it has been draining clear urine with no blood, pus or other fluids. (6) Acute deep vein thrombosis (DVT) of femoral vein of right lower extremity: Code(s): I82.411 - Acute embolism and thrombosis of right femoral vein Category: Medical Plan: - The patient has a right DVT from the iliac to the femoral vein caused by mass effect. - She will continue Eliquis, and refills will be sent to her pharmacy. - Hematology oncology for continuation of management. (7) HTN (hypertension): Code(s): I10 - Essential (primary) hypertension Category: Medical Qualifiers: Hypertension type: primary hypertension Qualified Code(s): I10 - Essential (primary) hypertension Plan: - The patient will continue taking labetalol for hypertension. - No new antihypertensive medications will be added at this time due to a history of adverse effects with amlodipine and losartan. - Blood pressure management is currently deferred to her curator of education. Plan I have discussed with the patient her new diagnosis of cancer, which is the most pressing issue. I explained the importance of urgent follow-up with specialists and placed stat referrals to Nephrology for her nephrostomy tube, as well as to Medical and Gynecologic Oncology. I strongly recommended she prioritize the appointment with the gynecologic oncologist at [facility], Dr. Nory Tan, whose name she was given in the hospital. We reviewed the plan to continue her current medications, Eliquis and labetalol, and I emphasized the importance of taking the Eliquis consistently. I ordered a comprehensive set of labs, including an anemia workup and general health s creenings, to be drawn at her next visit to minimize her travel. I arranged for a follow-up visit next week to ensure she is connecting with the necessary specialists. Time spent 60 minutes: chart review, review of labs, writing notes, medical interview and physical exam. Orders: Orders Complete Blood Count no Diff Today Z00.00 - Encounter for general adult medical examination without abnormal findings TSH reflex Free T4 Today Z00.00 - Encounter for general adult medical examination without abnormal findings Lipid Panel Today Z00.00 - Encounter for general adult medical examination without abnormal findings Hepatitis C Antibody Reflex Today Z00.00 - Encounter for general adult medical examination without abnormal findings HIV Ab/Ag Today Z00.00 - Encounter for general adult medical examination without abnormal findings IRON PROFILE Today D64.9 - Anemia, unspecified, Z00.00 - Encounter for general adult medical examination without abnormal findings Methylmalonic Acid Today D64.9 - Anemia, unspecified, Z00.00 - Encounter for general adult medical examination without abnormal findings Hepatitis B Core Antibody Today Z00.00 - Encounter for general adult medical examination without abnormal findings Hepatitis B Surface Antibody Today Z00.00 - Encounter for general adult medical examination without abnormal findings Hepatitis B Surface Antigen Today Z00.00 - Encounter for general adult medical examination without abnormal findings Comprehensive Met. Panel Today Z. - Encounter for general adult medical examination without abnormal findings Hemoglobin A1c Today Z. - Encounter for general adult medical examination without abnormal findings Vitamin B12 and Folate Today D64.9 - Anemia, unspecified, Z.00 - Encounter for general adult medical examination without abnormal findings Vitamin D 25-OH Total Today Z. - Encounter for general adult medical examination without abnormal findings Ferritin Today D64.9 - Anemia, unspecified, Z.00 - Encounter for general adult medical examination without abnormal findings Homocysteine Today D64.9 - Anemia, unspecified, Z00.00 - Encounter for general adult medical examination without abnormal findings Referrals Hematology & Oncology Referral N85.8 - Other specified noninflammatory disorders of uterus Nephrology Referral Z43.6 - Encounter for attention to other artificial openings of urinary tract Medications: Refilled apixaban (Eliquis) 5 mg PO BID 60 tabs 4RF
[2025-09-28 13:16] VITALS: BP 140/60; PULSE 83; TEMP 36.2; O2SAT 99; BMI 34.6
== END 2025-09-28 14:08 | disposition home or self-care (01) ==
LOC: HO.HMCH 13:07
PROVIDERS: PCP Internal Medicine; Visit Provider Internal Medicine
DX: I82.411 Acute embolism and thrombosis of right femoral vein (principal); Z43.6 Encounter for attention to other artificial openings of urinary tract; D64.9 Anemia, unspecified; N85.8 Other specified noninflammatory disorders of uterus; N13.5 Crossing vessel and stricture of ureter without hydronephrosis; I10 Essential (primary) hypertension

== ENCOUNTER → 2025-09-28 13:07 | Outpatient (BNVA) | payer MEDICARE, SELFPAY | PROVIDERS: PCP Internal Medicine; Visit Provider Internal Medicine | DX: Z00.01 Encounter for general adult medical examination with abnormal findings (principal); D64.9 Anemia, unspecified; N85.8 Other specified noninflammatory disorders of uterus; N13.5 Crossing vessel and stricture of ureter without hydronephrosis; I10 Essential (primary) hypertension; I82.411 Acute embolism and thrombosis of right femoral vein; Z43.6 Encounter for attention to other artificial openings of urinary tract; Z79.01 Long term (current) use of anticoagulants | CPT/HCPCS: 99202 ==

== ENCOUNTER → 2025-10-12 11:01 | Outpatient (BNV) | payer MEDICARE, SELFPAY | PROVIDERS: PCP Internal Medicine; Visit Provider Internal Medicine | DX: C54.1 Malignant neoplasm of endometrium (principal); C77.5 Secondary and unspecified malignant neoplasm of intrapelvic lymph nodes; I82.401 Acute embolism and thrombosis of unspecified deep veins of right lower extremity; N13.30 Unspecified hydronephrosis; Z93.6 Other artificial openings of urinary tract status | CPT/HCPCS: 99214; G2211 ==

== ENCOUNTER 2025-10-12 11:44 | Observation (INO) | payer MEDICARE, SELFPAY ==
--- NOTE | ~2025-10-12 | CT_ITS ---
EXAMINATION: CT ANGIOGRAM CHEST CLINICAL INFORMATION: Rule out PE. Dyspnea. COMPARISON: None available. TECHNIQUE: Multiple axial images were obtained through the chest after the administration of 75 mL of Omnipaque 350 intravenous contrast. Extensive vascular post-processing including two-dimensional and three-dimensional reformatted images were created and reviewed on an independent workstation. This CT examination was performed using dose optimization techniques as appropriate, variously including the following: *Automated exposure control *Adjustment of mA and/or kV according to patient size (this includes techniques or standardized protocols for targeted exams where dose is matched to indication/reason for exam; i.e. extremities or head) *Use of iterative reconstruction technique FINDINGS: VASCULAR: Study quality is adequate. There is mild respiratory motion artifact. There is no evidence of pulmonary embolus. The main pulmonary artery is mildly prominent. There is no evidence of right heart strain. There is no significant contrast reflux into the hepatic IVC. The aorta is normal in caliber without aneurysm or acute aortic syndrome. There is mild atheromatous calcification. Great vessels branch normally and are patent. The heart size is borderline enlarged. There is no pericardial effusion. LUNGS: There are stellate and reticular opacities in the lateral right upper lobe, coupled with clustered peribronchial nodular opacities, suggestive of infectious or inflammatory pneumonia. Mild subpleural reticular changes are present in the right lower lung. The left lung is clear. There are no effusions. There are small airway thickening diffusely. There is mild mosaic attenuation of both lungs. MEDIASTINUM: The partially imaged thyroid is normal. There is no mediastinal lymphadenopathy or mass. The esophagus is normal in caliber. There is a probable type I hiatus hernia. The central airways appear patent. AXILLA/CHEST WALL: No lymphadenopathy. UPPER ABDOMEN: Refer to the dedicated CT abdomen and pelvis performed concurrently. OSSEOUS STRUCTURES: No suspicious lytic or blastic bone lesions are evident. There are mild degenerative changes of the lower thoracic spine. CT/CT angio chest PE protocol IMPRESSION: 1. There is no evidence of pulmonary embolus. There is no evidence of acute aortic syndrome. 2. Borderline cardiac enlargement. 3. Patchy reticular opacities and centrilobular opacities in the lateral right upper lobe, and subpleural right lower lobe, suspicious for inflammatory and/or infectious abnormality. There is no pleural effusion. Electronically signed by: Jose David Luis MD 10/12/2025 02:46 PM EST RP
--- NOTE | ~2025-10-12 | CT_ITS ---
EXAMINATION: CT ABDOMEN AND PELVIS WITH CONTRAST CLINICAL INFORMATION: Abdominal pain, follow-up progression of metastatic disease COMPARISON: September 16, 2025 TECHNIQUE: Multidetector volumetric images were obtained from the superior aspect of the liver through the pubic symphysis following administration 85 mL of Omnipaque 350 intravenous contrast. Sagittal and coronal reformatted images were obtained on the technologist's workstation. Oral contrast: No This CT examination was performed using dose optimization techniques as appropriate, variously including the following: *Automated exposure control *Adjustment of mA and/or kV according to patient size (this includes techniques or standardized protocols for targeted exams where dose is matched to indication/reason for exam; i.e. extremities or head) *Use of iterative reconstruction technique FINDINGS: LUNG BASES: The visualized lung bases are unremarkable. LIVER, GALLBLADDER, AND BILIARY TREE: The liver is normal in size, shape, and attenuation. No focal hepatic lesion or biliary ductal dilatation is present. Calcified stones are present in the gallbladder. There is no gallbladder wall thickening. PANCREAS: Unremarkable. SPLEEN: Spleen size is borderline enlarged measuring 13.5 cm. It has increased from 13.2 cm. ADRENAL GLANDS: Nodular hyperplasia is present, left greater than right. Similar to the prior. KIDNEYS AND URETERS: Multiple simple renal cysts are present bilaterally. Since prior examination, percutaneous nephrostomy tube is been placed in the right kidney with decompression of the hydronephrosis that was present prior previously. There is also There is also a double-J catheter extending between the right kidney and bladder. BLADDER: The bladder is mostly decompressed. There is mild bilateral thickening, increased from the prior. GASTROINTESTINAL TRACT: The small and large bowel are unremarkable. There is moderate stool and gas in the rectum. The appendix is unremarkable. ABDOMINAL WALL: Umbilical hernia containing adipose tissue is again identified. Hernia sac measures 1.4 x 2.9 cm, similar to the prior. PERITONEAL/RETROPERITONEAL SPACE: Again seen is a heterogeneously enhancing retroperitoneal mass on the right side situated posterior to the right ureter measuring 14 x 11 x 10 cm, previously 13 x 10 x 9 cm. The mass is anterior to the psoas muscle and compresses the muscle. LYMPH NODES: Axial CT #15 image 64: Right external iliac lymph node measures 1.3 x 2.0 cm previously 1.4 x 1.9 cm. VASCULAR: Right retroperitoneal mass encases slightly more than half of the lateral wall of the right common carotid artery. Mass encases and compresses the right external iliac artery. Right internal iliac artery is adherent to the medial wall of the mass. PELVIC VISCERA: Heterogeneous masses are again present throughout the uterus. There is possible increase in size. In the sagittal plane, mass measures 5.1 x 8.9 cm, previously 4.5 x 8.1 cm. OSSEOUS STRUCTURES: Again seen is chronic pars intra-articular's defect at L5 with grade 2 anterolisthesis and severe degenerative changes. No lytic or blastic lesions are identified. CT/CT abdomen pelvis w IV con IMPRESSION: Interval increase in size in right retroperitoneal mass that encases the right external iliac artery and partially encases the right common and internal iliac arteries. Probable increased size of a heterogeneous mass in the uterus that could represent endometrial carcinoma. Interval increasing spleen size. Interval decompression of right hydronephrosis after placement of the percutaneous nephrostomy tube and a double-J ureteral catheter. Cholelithiasis. Stable umbilical hernia containing adipose tissue. 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 Fleischner guidelines were followed. Electronically signed by: Jeff Chahal MD 10/12/2025 02:47 PM EST
[2025-10-12 11:50] VITALS: BP 96/52; PULSE 84; RESP 16; TEMP 36.9; O2SAT 99; BMI 31.9
[2025-10-12 11:54] VITALS: BP 96/52; PULSE 84; RESP 16; TEMP 36.9; O2SAT 99
--- NOTE | 2025-10-12 12:04 | ED_ITS ---
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 Pena presents to the ED from the outpatient office for evaluation of low blood pressure readings. The patient was noted to have blood pressure as low as 88/50 and was recommended to come to the ED for evaluation. Upon arrival to the ED her blood pressure is 96/52. She is currently on labetalol for high blood pressure, and Eliquis for the recent finding of DVT. Reports that she has had chronic right leg pain, most noted in the right thigh region. No calf pain. She endorses some worsening shortness of breath, cough is nonproductive. Denies chest pain or pressure. No abdominal pain, nausea or vomiting. Reports that her right nephrostomy tube previously was draining bright red blood, now clear yellow urine. Does endorse some discomfort at the site of the right flank. Endorses chronic right lower abdominal pain. No fever, chills. Patient does report that she has been feeling more hot lately because in her assisted living home they increased the thermostat to 74?. Otherwise was feeling in her usual state of health. Related Data Previous Rx's ?Medication ?Instructions ?Recorded labetalol 100 mg tablet 300 mg (3 x 100 mg) PO BID # 60 tabs 09/24/25 apixaban 5 mg tablet (Eliquis) 5 mg PO BID #60 tabs Allergies Allergy/AdvReac Type Severity Reaction Status Date / Time amoxicillin Allergy Intermediate Unknown Verified 10/12/25 11:51 codeine (CODEINE) Allergy Intermediate UNKNOWN Verified 10/12/25 11:51 Penicillins (PENICILLINS) Allergy Intermediate UNKNOWN Verified 10/12/25 11:51 clonidine Allergy Unknown tongue/facial Verified 10/12/25 11:51 swelling terazosin (TERAZOSIN) Allergy Unknown UNKNOWN, Verified 10/12/25 11:51 leg pain ? 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 Acute deep vein thrombosis (DVT) of femoral vein of right lower extremity Mass of uterus HTN (hypertension) Renal insufficiency Family History Family History (Updated 10/12/25 @ 11:22 by Paul El) Mother HTN (hypertension) Colon cancer Father HTN (hypertension) Social History Social History Household Members: None Housing: Apartment Do you presently have visiting nurse or other home services: No Alcohol intake: never Comment: low fall risk Patient Tobacco Use Status: Former Tobacco user Tobacco use type: Cigarette Smoked in Last 30 Days: No e-Cigarette/Vaping Use: Never Used Second Hand Smoke Exposure: Yes Use of substances other than those prescribed or required for medical reasons: No Advance Directives: Yes Advance Directives on File: Yes Advance Directives Date on File: 09/28/25 Do you have a plan to hurt others: No Plan Current occupational status: retired Cognitive needs: Yes (Walker) Hearing needs: No Vision needs: Yes (Glasses) Physical Exam ED Vital Signs: Vital Signs - 24 hr 10/12/25 11:50 10/12/25 11:54 10/12/25 14:21 Temperature 98.4 F 98.4 F Pulse Rate 84 84 70 Respiratory Rate 16 16 18 Blood Pressure 96/52 L 96/52 L 158/67 H Pulse Oximetry 99 99 98 Oxygen Delivery Method Room Air Room Air Room Air BMI result Body Mass Index 31.9 Const General: cooperative, healthy appearing, comfortable, no acute distress, well developed, alert, awake and Physically active Nutritional Appearance: well nourished Orientation/consciousness: patient oriented x3 Limitations: no limitations HENMT Head: Yes normocephalic and Yes atraumatic Ears: hearing grossly normal bilaterally and external ears normal General nose exam: Normal external nose present and No nasal discharge present Face and sinus: Yes normal facial exam Mouth: Normal oral and palatal mucosa present, lip normal, oropharynx normal and moist mucous membranes Eyes General: appearance normal, both eyes and all related structures Visual Bautista: normal visual bautista by confrontation Eyelids: Yes eyelids normal Conjunctivae: conjunctivae normal Sclerae: sclerae normal EOM: EOMs intact bilaterally Neck Neck: Yes full ROM and Yes no lymphadenopathy Lymphatic: no lymphadenopathy noted Chest Chest palpation & inspection: normal inspection of the chest and normal palpation of entire chest wall Resp Effort & Inspection: normal respiratory effort and able to speak in complete sentences Auscultation: clear to auscultation bilaterally Cardio Rate: regular rate Rhythm: regular rhythm Heart sounds: S1 normal heart sound present, S2 normal heart sound present and no murmurs Peripheral pulses: Peripheral pulses 2+ throughout GI Inspection: Yes normal to inspection and No distended Palpation (GI): Soft to palpation, nontender and no guarding Auscultation: normal bowel sounds General: No no CVA tenderness Back/Spine/Pelvis Back: No no CVA tenderness Cervical Spine: cervical ROM normal Skin General skin exam: no rashes or lesions noted and turgor normal Wounds: no wounds Hair: normal Nails: normal Neuro General: patient oriented x3, gait normal and moves all extremities Cognition (Neuro): normal cognition Gait exam (Neuro): Normal gait present Motor exam (neuro): 5/5 motor strength present throughout Extrem General: Yes full ROM and Yes capillary refill normal Psych Appearance: well kempt Mental Status: mental status grossly normal Speech and movement: Normal speech and movement present Medications Administered Generic Name Dose Route Start Last Admin Trade Name Freq PRN Reason Stop Dose Admin Azithromycin 500 mg/ Sodium 250 mls @ 125 mls/hr 10/12/25 15:41 10/12/25 15:48 Chloride IV 10/12/25 17:40 125 mls/hr ONCE ONE Administration Discontinued Medications Generic Name Dose Route Start Last Admin Trade Name Freq PRN Reason Stop Dose Admin Sodium Chloride 1,000 mls @ 999 mls/hr 10/12/25 12:50 10/12/25 15:00 Ns IV 10/12/25 13:50 Infused .Q1H1M ONE Infusion Ceftriaxone Sodium 1 gm/ 50 mls @ 100 mls/hr 10/12/25 13:57 10/12/25 15:48 Sodium Chloride IV 10/12/25 14:26 Infused ONCE ONE Infusion Iohexol 100 ml 10/12/25 13:51 10/12/25 14:01 Iohexol 350 Mg/Ml 100 Ml Infus..Btl IV 10/12/25 13:52 75 ml ONCE ONE Administration Medical Decision Making Medical Decision Making MDM Narrative: Initially upon my evaluation she does appear ill. Her systolic blood pressure on the monitor is 120. She reports that she was feeling well going to her visit today, this was her 1st visit with the field education coordinator/oncologist to discuss the psoas fluid collection and options for her cancer. She has had progressive decrease in PO intake at home. The right nephrostomy tube is intact, appears to be draining clear yellow urine. She reports this was initially very bloody, cannot recall if the amount of urine is improving or declining. She reports persistent right leg pain, where she has a known DVT more recently, and is currently on Eliquis for. The differentials are broad, but most concerning for PE given the recent diagnosis of DVT, worsening infection, anemia, electrolyte abnormalities, underlying infection or sepsis. She was sent in from the heme/onc office with concerns for progressive decline and hypotension. We will obtain broad workup, currently pending creatinine to obtain a CTA of the chest as well CT of the abdomen and pelvis. She is not tachycardic, not tachypneic, and not hypoxic but does endorse shortness of breath. Afebrile upon arrival to the ED. 1254-- Pts Creatinine 1.63, significantly improved in comparison to previous. Will plan for fluid resuscitation 1L, as well as CTA of the chest PE protocol and CT of the abdomen and pelvis. Her white blood cell count has increased to 15.8, concerning for active infection. 1358-- Urinalysis appears to be infected. Will start a dose of Rocephin. She is anemic but this appears to be improved in comparison to previous. Negative COVID, flu, RSV. Pending CTA of the chest and CT of the abdomen and pelvis. 1604-- I reviewed the patient's CT scan, the chest reveals no evidence of PE but several opacities concerning for underlying pneumonia. I have added on azithromycin for treatment. The CT of the abdomen and pelvis reveals interval increase in size in the right retroperitoneal mass that is now encasing the right external iliac artery, and partially encases the right common and internal iliac arteries. There is also a probable increased size of the mass in the uterus I could represent the endometrial carcinoma, and an interval increase in spleen size. There is interval decompression of the right hydronephrosis after placement of the nephrostomy tube. This is concerning, as the mass is increasing in size and she had a transient episode of hypotension earlier today when trying to see the new Heme-Onc provider for a new consult visit. I do have concern that she is progressively worsening at home. Her curb 65 score for pneumonia is 3, which is inappropriate for discharge. She is agreeable with admission plan for history and management of this progressive mass and pain control, as well as antibiotics for pneumonia. Signed out to hospitalist, Dr. Newby. Differential Diagnosis Differential Diagnoses: The differential diagnosis associated with the presentation includes PE, anemia, pneumonia, pneumothorax, worsening infection, sepsis Admission/Observation Consideration of admission/observation: Escalation of care including admission/observation considered (Patient will require admission for continued management. ) Consult Healthcare Provider Management of the patient was discussed with: Hospitalist Lab Data MDM Lab Attestation statement: I reviewed the patient's lab results. 10/12/25 12:23 10/12/25 12:23 Labs: Lab Results 10/12/25 10/12/25 10/12/25 Range/Units 12:21 12:23 12:24 WBC 15.8 H (4.8-10.8) X10*3/uL RBC 4.35 (4.20-5.50) X10*6/uL Hgb 10.2 L (12.0-16.0) g/dl Hct 33.2 L (37.0-47.0) % MCV 76.3 L (80.0-98.0) fL MCH 23.4 L (27.0-33.0) pg MCHC 30.7 L (31.0-35.0) g/dl RDW 17.0 H (11.0-16.0) % Plt Count 259 (160-400) X10*3/uL MPV 9.7 (9.4-12.3) fL Immature Gran % (Auto) 0.6 H (0.0-0.4) % Neut % (Auto) 84.8 H (45-73) % Lymph % (Auto) 7.3 L (20-40) % [place] % (Auto) 5.6 (2-11) % Eos % (Auto) 1.3 (0-4) % Baso % (Auto) 0.4 (0-2) % Lymph # (Auto) 1.2 (1.2-4.9) X10*3/uL [place] # (Auto) 0.9 (0.1-1.2) X10*3/uL Eos # (Auto) 0.2 (0.0-0.4) X10*3/uL Baso # (Auto) 0.1 (0.0-0.2) X10*3/uL Abs Immat Gran (auto) 0.10 H (0.00-0.03) X10*3/uL Absolute Neuts (auto) 13.4 H (2.0-8.3) x10*3/uL Absolute Nucleated RBC 0.000 (0.0-0.012) X10*3/uL Nucleated RBC % (auto) 0.0 (0.0-0.2) /100WBC PT 22.7 H (11.2-13.5) SEC INR 1.9 H (0.9-1.1) Sodium 135 (135-145) mmol/L Potassium 4.1 (3.3-5.1) mmol/L Chloride 104 (96-108) mmol/L Carbon Dioxide 22 (22-29) mmol/L Anion Gap 13 (12-20) BUN 24 H (9-16) mg/dL Creatinine 1.63 H (0.5-1.4) mg/dL Estim Creat Clear Calc 39.0 Estimated GFR 31 Fasting Glucose 118 H (60-99) mg/dL Calcium 8.8 (8.4-10.2) mg/dL Total Bilirubin 0.3 (0.0-1.0) mg/dL Direct Bilirubin 0.1 (0.0-0.5) mg/dL AST 31 (5-31) U/L ALT 8 (0-31) U/L Alkaline Phosphatase 104 (39-117) U/L Total Protein 6.2 L (6.5-8.0) g/dL Albumin 3.3 L (3.5-5.0) g/dL Urine Color Urine Appearance Urine pH (5.0-9.0) Ur Specific [place] (1.005-1.025) Urine Protein (Neg-Trace) mg/dL Urine Glucose (UA) (Negative) mg/dL Urine Ketones (Negative) mg/dL Urine Blood (Negative) Urine Nitrite (Negative) Ur Leukocyte Esterase (Negative) Urine RBC (0-2) /HPF Urine WBC (0-5) /HPF Urine WBC Clumps Ur Squamous Epith Cells (0-2) /HPF Urine Bacteria (None Seen) Hyaline Casts (0-2) /LPF Influenza Type A (PCR) NEGATIVE (Negative) Influenza Type B (PCR) NEGATIVE (Negative) RSV RNA Qual (PCR) NEGATIVE (Negative) SARS-CoV-2 RNA (RT-PCR) NEGATIVE (Negative) 10/12/25 Range/Units 13:08 WBC (4.8-10.8) X10*3/uL RBC (4.20-5.50) X10*6/uL Hgb (12.0-16.0) g/dl Hct (37.0-47.0) % MCV (80.0-98.0) fL MCH (27.0-33.0) pg MCHC (31.0-35.0) g/dl RDW (11.0-16.0) % Plt Count (160-400) X10*3/uL MPV (9.4-12.3) fL Immature Gran % (Auto) (0.0-0.4) % Neut % (Auto) (45-73) % Lymph % (Auto) (20-40) % [place] % (Auto) (2-11) % Eos % (Auto) (0-4) % Baso % (Auto) (0-2) % Lymph # (Auto) (1.2-4.9) X10*3/uL [place] # (Auto) (0.1-1.2) X10*3/uL Eos # (Auto) (0.0-0.4) X10*3/uL Baso # (Auto) (0.0-0.2) X10*3/uL Abs Immat Gran (auto) (0.00-0.03) X10*3/uL Absolute Neuts (auto) (2.0-8.3) x10*3/uL Absolute Nucleated RBC (0.0-0.012) X10*3/uL Nucleated RBC % (auto) (0.0-0.2) /100WBC PT (11.2-13.5) SEC INR (0.9-1.1) Sodium (135-145) mmol/L Potassium (3.3-5.1) mmol/L Chloride (96-108) mmol/L Carbon Dioxide (22-29) mmol/L Anion Gap (12-20) BUN (9-16) mg/dL Creatinine (0.5-1.4) mg/dL Estim Creat Clear Calc Estimated GFR Fasting Glucose (60-99) mg/dL Calcium (8.4-10.2) mg/dL Total Bilirubin (0.0-1.0) mg/dL Direct Bilirubin (0.0-0.5) mg/dL AST (5-31) U/L ALT (0-31) U/L Alkaline Phosphatase (39-117) U/L Total Protein (6.5-8.0) g/dL Albumin (3.5-5.0) g/dL Urine Color Dark Yellow Urine Appearance Turbid Urine pH 6.5 (5.0-9.0) Ur Specific [place] 1.020 (1.005-1.025) Urine Protein 300 (3+) H (Neg-Trace) mg/dL Urine Glucose (UA) Negative (Negative) mg/dL Urine Ketones Trace (Negative) mg/dL Urine Blood Large (3+) H (Negative) Urine Nitrite Negative (Negative) Ur Leukocyte Esterase Large (3+) H (Negative) Urine RBC >20 H (0-2) /HPF Urine WBC >50 H (0-5) /HPF Urine WBC Clumps Present Ur Squamous Epith Cells 3-5 (0-2) /HPF Urine Bacteria 4+ (None Seen) Hyaline Casts 3-5 (0-2) /LPF Influenza Type A (PCR) (Negative) Influenza Type B (PCR) (Negative) RSV RNA Qual (PCR) (Negative) SARS-CoV-2 RNA (RT-PCR) (Negative) Independent Interpretation I performed an independent interpretation of an: EKG and CT Scan Interpretation: My independent interpretation of the EKG: Atrial fibrillation with a rate of 79 BPM. Patient with a known hx of Afib Prior EKG from 09/16/25 to my interpretation shows Sinus rhythm with a rate of 87 BPM. Test Reason : ABNORMAL LABS Vent. Rate : 79 BPM Atrial Rate : * BPM P-R Int : * ms QRS Dur : 66 ms QT Int : 402 ms P-R-T Axes : * 40 54 degrees QTcB Int : 460 ms Atrial fibrillation Abnormal ECG When compared with ECG of 09-May-2015 09:08, ST elevation now present in Inferior leads. I have reviewed the patient's imaging and agree with the radiologist's findings. Radiology Impression Discussion of test interpretation with radiology: I have reviewed the radiologist's reading. Radiologist Impression: CT Chest Angio PE: IMPRESSION: 1. There is no evidence of pulmonary embolus. There is no evidence of acute aortic syndrome. 2. Borderline cardiac enlargement. 3. Patchy reticular opacities and centrilobular opacities in the lateral right upper lobe, and subpleural right lower lobe, suspicious for inflammatory and/or infectious abnormality. There is no pleural effusion. Electronically signed by: Jose David Luis MD 10/12/2025 02:[address] Abdomen/Pelvis: IMPRESSION: Interval increase in size in right retroperitoneal mass that encases the right external iliac artery and partially encases the right common and internal iliac arteries. Probable increased size of a heterogeneous mass in the uterus that could represent endometrial carcinoma. Interval increasing spleen size. Interval decompression of right hydronephrosis after placement of the percutaneous nephrostomy tube and a double-J ureteral catheter. Cholelithiasis. Stable umbilical hernia containing adipose tissue. 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 Independent Historian Clinical information obtained from an independent historian. History obtained from or confirmed by: EMS External Record Review External record reviewed: Office record, Outpatient record and Outside ED record Chronic Conditions Patient?s care impacted by: Hypertension and Cancer Social Determinants Patient?s care significantly limited by Social Determinants of Health including: Problems related to primary support group Discharge Plan Discharge Clinical Impression: Mass of uterus, Acute hypotension Pneumonia Qualifiers: Pneumonia type: due to unspecified organism Laterality: right Lung location: u pper lobe of lung Qualified Code(s): J18.9 - Pneumonia, unspecified organism Patient Disposition: Admitted As Inpatient Print Language: Icelandic
--- NOTE | 2025-10-12 12:14 | ECG_ITS ---
Test Reason : ABNORMAL LABS Blood Pressure : */* mmHG Vent. Rate : 79 BPM Atrial Rate : * BPM P-R Int : * ms QRS Dur : 66 ms QT Int : 402 ms P-R-T Axes : * 40 54 degrees QTcB Int : 460 ms Normal sinus rhythm Premature atrial complexes Abnormal ECG When compared with ECG of 09-May-2015 09:08, No significant changes seen Referred By: Jessi Fountain Electronically Signed By: DARIO FIGUEROA
[2025-10-12 12:31] LABS: MANUAL DIFF FLAG NO
[2025-10-12 12:34] LABS: Hematocrit 33.2 % (37.0-47.0); Hemoglobin 10.2 g/dl (12.0-16.0); Imm Gran Abs Auto 0.10 X10*3/uL (0.00-0.03); Imm Gran Pct Auto 0.6 % (0.0-0.4); Lymphocytes Absolute Auto 1.2 X10*3/uL (1.2-4.9); Mean Corpuscular HGB Conc 30.7 g/dl (31.0-35.0); Mean Corpuscular Hemoglobin 23.4 pg (27.0-33.0); Mean Corpuscular Volume 76.3 fL (80.0-98.0); NRBC Abs Auto 0.000 X10*3/uL (0.0-0.012); NRBC Pct Auto 0.0 /100WBC (0.0-0.2); Platelet Count 259 X10*3/uL (160-400); Red Blood Count 4.35 X10*6/uL (4.20-5.50); White Blood Count 15.8 X10*3/uL (4.8-10.8)
[2025-10-12 12:45] LABS: INTERNATIONAL NORM RATIO 1.9 (0.9-1.1); Prothrombin Time 22.7 SEC (11.2-13.5)
[2025-10-12 12:48] LABS: Alanine Aminotransferase 8 U/L (0-31); Albumin Level 3.3 g/dL (3.5-5.0); Alkaline Phosphatase 104 U/L (39-117); Anion Gap 13 (12-20); Aspartate Amino Transferase 31 U/L (5-31); Blood Urea Nitrogen 24 mg/dL (9-16); Calcium 8.8 mg/dL (8.4-10.2); Carbon Dioxide 22 mmol/L (22-29); Chloride 104 mmol/L (96-108); Creatinine Clr Calc Pharmacy 39.0; Estimated Glomerular Filt Rate 31; Potassium 4.1 mmol/L (3.3-5.1); Sodium 135 mmol/L (135-145); Total Protein 6.2 g/dL (6.5-8.0)
[2025-10-12 13:10] LABS: Resp Syncy Virus RNA Qual PCR NEGATIVE (Negative); SARS COV2 PCR INHOUSE NEGATIVE (Negative)
[2025-10-12 13:19] LABS: Appearance Urine Turbid; Glucose Urine UA Negative (Negative); PH 6.5 (5.0-9.0); Specific Gravity - Urine 1.020 (1.005-1.025); UMIC TRIGGER UACC YES
[2025-10-12 13:51] LABS: UACC Culture Trigger YES
[2025-10-12] MEDS: iohexoL 350 MG/ML 100 ML INFUS..BTL IV (14:01)
[2025-10-12 14:21] VITALS: BP 158/67; PULSE 70; RESP 18; O2SAT 98
--- NOTE | 2025-10-12 16:41 | PHA.MEDREC ---
Addendum entered by Alan Middleton PharmD 10/12/25 16:46: reviewed Original Note: Pharmacy Consult ? Medication Reconciliation Pharmacy has completed the medication reconciliation. Spoke with pt and she confirmed her medications. Pt takes Eliquis 5mg tabs 1 BID and confirmed she took that this morning; along with her Labetalol and Tylenol.
--- NOTE | 2025-10-12 17:58 | PM.IMHP ---
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 Pena presents to the ED from the outpatient office for evaluation of low blood pressure readings. The patient was noted to have blood pressure as low as 88/50 and was recommended to come to the ED for evaluation. . 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 Mass of uterus HTN (hypertension) Renal insufficiency Family History Mother HTN (hypertension) Colon cancer Father HTN (hypertension) Social History Household Members: None Housing: Apartment Do you presently have visiting nurse or other home services: No Alcohol intake: never Comment: low fall risk Patient Tobacco Use Status: Former Tobacco user Tobacco use type: Cigarette Smoked in Last 30 Days: No e-Cigarette/Vaping Use: Never Used Second Hand Smoke Exposure: Yes Use of substances other than those prescribed or required for medical reasons: No Advance Directives: Yes Advance Directives on File: Yes Advance Directives Date on File: 09/28/25 Do you have a plan to hurt others: No Plan Current occupational status: retired Cognitive needs: Yes (Walker) Hearing needs: No Vision needs: Yes (Glasses) Meds Allergies Allergy/AdvReac Type Severity Reaction Status Date / Time amoxicillin Allergy Intermediate Unknown Verified 10/12/25 11:51 codeine (CODEINE) Allergy Intermediate UNKNOWN Verified 10/12/25 11:51 Penicillins (PENICILLINS) Allergy Intermediate UNKNOWN Verified 10/12/25 11:51 clonidine Allergy Unknown tongue/facial Verified 10/12/25 11:51 swelling terazosin (TERAZOSIN) Allergy Unknown UNKNOWN, Verified 10/12/25 11:51 leg pain ? swelling valsartan (VALSARTAN) Allergy Unknown UNKNOWN, Verified 10/12/25 11:51 edema acetaminophen (Percocet) AdvReac Unknown N/V Verified 10/12/25 11:51 amlodipine AdvReac Unknown Difficulty Verified 10/12/25 11:51 Breathing oxycodone (Percocet) AdvReac Unknown N/V Verified 10/12/25 11:51 penicillin V AdvReac Unknown N/V Verified 10/12/25 11:51 Codeine Sulfate AdvReac Unknown N/V Uncoded 10/12/25 11:51 Active Medications: Current Medications Acetaminophen (Acetaminophen 325 Mg Tablet) 650 mg PO Q6H PRN PRN Reason: Pain, Mild 1-3,fever,headache Apixaban (Apixaban 5 Mg Tablet) 5 mg PO BID ORLY Calcium Carbonate (Calcium Carbonate 750 Mg Tab.Chew) 750 mg PO Q4H PRN PRN Reason: Heartburn Labetalol HCl (Labetalol Hcl 100 Mg Tablet) 300 mg PO BID ORLY; Protocol Magnesium Hydroxide (Milk Of Magnesia 30 Ml Oral.Susp) 30 ml PO DAILY PRN PRN Reason: Constipation Melatonin (Melatonin 3 Mg Tablet) 6 mg PO BEDTIME PRN PRN Reason: Insomnia Ondansetron HCl (Ondansetron Hcl 4 Mg/2 Ml Vial) 4 mg IVPUSH Q8H PRN PRN Reason: Nausea and Vomiting Sodium Chloride (0.9 % Sodium Chloride Flush 3 Ml Syringe) 3 ml IVFLUSH QSHIFT [facility] Home Medications ?Medication ?Instructions ?Recorded ?Confirmed ?Last Taken ?Type acetaminophen 500 mg tablet 1,000 mg PO Q6H PRN Pain 10/12/25 10/12/25 10/12/25 History Physical Exam Vital Signs and Narrative: Vital Signs: Last Vital Signs Temp 98.4 F 10/12/25 11:54 Pulse 70 10/12/25 14:21 Resp 18 10/12/25 14:21 BP 158/67 H 10/12/25 14:21 Pulse Ox 98 10/12/25 14:21 O2 Del Method Room Air 10/12/25 14:21 BMI result Body Mass Index 31.9 Const: Other: Awake alert no acute distress Resp: Other: Clear to auscultation bilaterally no rales rhonchi or wheezes Cardio: Other: No S4; positive S1-S2; no S3 murmurs rubs or gallops GI: Other: Soft nontender nondistended normoactive bowel sounds Extrem: Other: No edema bilaterally Results Labs 10/12/25 12:23 10/12/25 12:23 Labs: Laboratory Results - last 24 hr 10/12/25 10/12/25 10/12/25 12:21 12:23 12:24 MCV 76.3 L MCH 23.4 L MCHC 30.7 L RDW 17.0 H Plt Count 259 MPV 9.7 Immature Gran % (Auto) 0.6 H Neut % (Auto) 84.8 H Lymph % (Auto) 7.3 L [place] % (Auto) 5.6 Eos % (Auto) 1.3 Baso % (Auto) 0.4 Lymph # (Auto) 1.2 [place] # (Auto) 0.9 Eos # (Auto) 0.2 Baso # (Auto) 0.1 Abs Immat Gran (auto) 0.10 H Absolute Neuts (auto) 13.4 H Absolute Nucleated RBC 0.000 Nucleated RBC % (auto) 0.0 PT 22.7 H INR 1.9 H Anion Gap 13 Estim Creat Clear Calc 39.0 Estimated GFR 31 Fasting Glucose 118 H Calcium 8.8 Total Bilirubin 0.3 Direct Bilirubin 0.1 AST 31 ALT 8 Alkaline Phosphatase 104 Total Protein 6.2 L Albumin 3.3 L Urine Color Urine Appearance Urine pH Ur Specific [place] Urine Protein Urine Glucose (UA) Urine Ketones Urine Blood Urine Nitrite Ur Leukocyte Esterase Urine RBC Urine WBC Urine WBC Clumps Ur Squamous Epith Cells Urine Bacteria Hyaline Casts Influenza Type A (PCR) NEGATIVE Influenza Type B (PCR) NEGATIVE RSV RNA Qual (PCR) NEGATIVE SARS-CoV-2 RNA (RT-PCR) NEGATIVE 10/12/25 13:08 MCV MCH MCHC RDW Plt Count MPV Immature Gran % (Auto) Neut % (Auto) Lymph % (Auto) [place] % (Auto) Eos % (Auto) Baso % (Auto) Lymph # (Auto) [place] # (Auto) Eos # (Auto) Baso # (Auto) Abs Immat Gran (auto) Absolute Neuts (auto) Absolute Nucleated RBC Nucleated RBC % (auto) PT INR Anion Gap Estim Creat Clear Calc Estimated GFR Fasting Glucose Calcium Total Bilirubin Direct Bilirubin AST ALT Alkaline Phosphatase Total Protein Albumin Urine Color Dark Yellow Urine Appearance Turbid Urine pH 6.5 Ur Specific [place] 1.020 Urine Protein 300 (3+) H Urine Glucose (UA) Negative Urine Ketones Trace Urine Blood Large (3+) H Urine Nitrite Negative Ur Leukocyte Esterase Large (3+) H Urine RBC >20 H Urine WBC >50 H Urine WBC Clumps Present Ur Squamous Epith Cells 3-5 Urine Bacteria 4+ Hyaline Casts 3-5 Influenza Type A (PCR) Influenza Type B (PCR) RSV RNA Qual (PCR) SARS-CoV-2 RNA (RT-PCR) Imaging Radiologist's Impressions: Impressions Abdomen/Pelvis CT 10/12/25 13:45 IMPRESSION: Interval increase in size in right retroperitoneal mass that encases the right external iliac artery and partially encases the right common and internal iliac arteries. Probable increased size of a heterogeneous mass in the uterus that could represent endometrial carcinoma. Interval increasing spleen size. Interval decompression of right hydronephrosis after placement of the percutaneous nephrostomy tube and a double-J ureteral catheter. Cholelithiasis. Stable umbilical hernia containing adipose tissue. 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 Fleischner guidelines were followed. Electronically signed by: Jeff Chahal MD 10/12/2025 02:47 PM EST RP Chest CTA 10/12/25 13:45 IMPRESSION: 1. There is no evidence of pulmonary embolus. There is no evidence of acute aortic syndrome. 2. Borderline cardiac enlargement. 3. Patchy reticular opacities and centrilobular opacities in the lateral right upper lobe, and subpleural right lower lobe, suspicious for inflammatory and/or infectious abnormality. There is no pleural effusion. Electronically signed by: Jose David Luis MD 10/12/2025 02:46 PM EST RP Assessment and Plan (1) Acute hypotension: Status: Acute (2) Acute deep vein thrombosis (DVT) of femoral vein of right lower extremity: Status: Acute Plan 65-year-old female with biopsy-proven endometrial adenocarcinoma. She also has a history of malignancy associated DVT for which she is on Eliquis. She presented to Oncology office today where she was found to be relatively hypotensive with systolics of 86-88. She was sent to the emergency room where her pressure is hovering around 100 systolic. At this point in time she has no focal complaints and will be observed overnight to monitor blood pressures with likely DC in a.m. 1. Hypotension -self-limited -follow up BP is overnight; hold antihypertensive -add back when clinically appropriate 2. Acute DVT of femoral vein right lower extremity secondary to endometrial adenocarcinoma -continue Eliquis as outpatient dosing -follow up with Oncology Full code Eliquis Patient will require 1 midnight of hospital stay to monitor blood pressure and assure no further episodes of hypotension Quality Stroke Does the patient have a stroke diagnosis?: No VTE Prior VTE?: No VTE Risk Level:: Medical - moderate - high VTE Device Contraindication: Treatment Not Indicated VTE Drug Contraindication: N/A - Med Ordered
[2025-10-12 18:32] VITALS: BP 158/67; PULSE 70; RESP 18; O2SAT 98
--- NOTE | 2025-10-12 18:36 | PC.NURSE ---
Nurse to nurse report to given to Nhung RN in Overflow
[2025-10-12 20:10] VITALS: BP 176/67; PULSE 85; RESP 14; TEMP 37; O2SAT 98
[2025-10-12 21:16] VITALS: BP 176/67; PULSE 85
[2025-10-13] MEDS: 0.9 % Sodium Chloride Flush 3 ML SYRINGE IVFLUSH ×2 (00:03→08:21)
[2025-10-13 00:50] VITALS: BP 149/62; PULSE 88; RESP 18; TEMP 36.6; O2SAT 96
[2025-10-13 03:57] LABS: MANUAL DIFF FLAG NO
[2025-10-13 04:00] LABS: Hematocrit 30.8 % (37.0-47.0); Hemoglobin 9.3 g/dl (12.0-16.0); Imm Gran Abs Auto 0.05 X10*3/uL (0.00-0.03); Imm Gran Pct Auto 0.4 % (0.0-0.4); Lymphocytes Absolute Auto 1.4 X10*3/uL (1.2-4.9); Mean Corpuscular HGB Conc 30.2 g/dl (31.0-35.0); Mean Corpuscular Hemoglobin 23.4 pg (27.0-33.0); Mean Corpuscular Volume 77.4 fL (80.0-98.0); NRBC Abs Auto 0.000 X10*3/uL (0.0-0.012); NRBC Pct Auto 0.0 /100WBC (0.0-0.2); Platelet Count 222 X10*3/uL (160-400); Red Blood Count 3.98 X10*6/uL (4.20-5.50); White Blood Count 13.4 X10*3/uL (4.8-10.8)
[2025-10-13 04:19] LABS: Alanine Aminotransferase 7 U/L (0-31); Albumin Level 3.0 g/dL (3.5-5.0); Alkaline Phosphatase 93 U/L (39-117); Anion Gap 14 (12-20); Aspartate Amino Transferase 31 U/L (5-31); Blood Urea Nitrogen 25 mg/dL (9-16); Calcium 8.4 mg/dL (8.4-10.2); Carbon Dioxide 20 mmol/L (22-29); Chloride 108 mmol/L (96-108); Creatinine Clr Calc Pharmacy 39.5; Estimated Glomerular Filt Rate 32; Potassium 4.1 mmol/L (3.3-5.1); Sodium 138 mmol/L (135-145); Total Protein 5.7 g/dL (6.5-8.0)
[2025-10-13 06:00] VITALS: BP 152/70; PULSE 82; RESP 16; TEMP 35.5; O2SAT 97
[2025-10-13 08:20] VITALS: BP 152/70; PULSE 82
--- NOTE | 2025-10-13 08:30 | PC.NURSE ---
patient a&ox3, rr equal/non labored, lungs clear, nephrostomy tube/dressing intact- patient/draining- pt self care. ambulates with wheeled walker at baseline. presently denying pain/discomfort, call colin within reach, plan of care ongoing
--- NOTE | 2025-10-13 13:10 | PM.DS ---
DS: Providers Provider Date of Service: 10/13/25 Date of admission: 10/12/25 17:07 Date of discharge: 10/13/25 Primary care physician: Meg Davison MD DS: Diagnosis Discharge Diagnosis (1) Acute hypotension: Status: Acute (2) Acute deep vein thrombosis (DVT) of femoral vein of right lower extremity: Status: Acute DS: Summary Hospital Course Hospital Course: 65-year-old female with medical history that is significant for hypertension, CKD without known stage most recent creatinine 1.73 08/2025, recent diagnoses of right lower extremity DVT from the right common femoral to popliteal veins currently anticoagulated on Eliquis, and several months of right flank pain with new diagnoses of a 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 Pena presents to the ED from the outpatient office for evaluation of low blood pressure readings. The patient was noted to have blood pressure as low as 88/50 and was recommended to come to the ED for evaluation. . In ER pressure was found to be proximally 100 systolic; patient will be admitted overnight to monitor blood pressures with likely discharge in the morning. Hospital Course Patient admitted and antihypertensive held. In the ER patient's blood pressure continued to rebound to normal parameters. CTA of chest done; no evidence of pulmonary emboli however some bronchial wall thickening. Patient did have a mild white count and she was treated initially with ceftriaxone and azithromycin. At this point in time her blood pressures have been normal and she has resumed her antihypertensive therapies. She will be discharge to complete a course of doxycycline and follow up with Oncology as an outpatient Time Attestation Discharge Coordination Time (in mins): 35 Quality: Safe Use of Opioids Does Pt have an Active Cancer Diagnosis on the Problem List?: Yes Opioid Measure Date for [facility] Report: 09/13/25 Opioid Measure Time for [facility] Report: 13:13 Quality: Stroke Does the patient have a stroke diagnosis?: No Physical Exam Vital Signs: Vital Signs: Last Vital Signs Temp 96 F L 10/13/25 06:00 Pulse 82 10/13/25 08:20 Resp 16 10/13/25 06:00 BP 152/70 H 10/13/25 08:20 Pulse Ox 97 10/13/25 06:00 O2 Del Method Room Air 10/13/25 06:00 BMI result Body Mass Index 31.9 Const: Other: Awake alert no acute distress Resp: Other: Clear to auscultation bilaterally no rales rhonchi or wheezes Cardio: Other: No S4; positive S1-S2; no S3 murmurs rubs or gallops GI: Other: Soft nontender nondistended normoactive bowel sounds Extrem: Other: No edema bilaterally DS: Data Data Completed and Pending Labs on day of discharge: Laboratory Results - last 24 hr 10/12/25 10/12/25 10/13/25 12:21 13:08 03:44 WBC 13.4 H RBC 3.98 L Hgb 9.3 L Hct 30.8 L MCV 77.4 L MCH 23.4 L MCHC 30.2 L RDW 17.0 H Plt Count 222 MPV 9.4 Immature Gran % (Auto) 0.4 Neut % (Auto) 81.0 H Lymph % (Auto) 10.3 L [place] % (Auto) 5.4 Eos % (Auto) 2.4 Baso % (Auto) 0.5 Lymph # (Auto) 1.4 [place] # (Auto) 0.7 Eos # (Auto) 0.3 Baso # (Auto) 0.1 Abs Immat Gran (auto) 0.05 H Absolute Neuts (auto) 10.9 H Absolute Nucleated RBC 0.000 Nucleated RBC % (auto) 0.0 Sodium 138 Potassium 4.1 Chloride 108 Carbon Dioxide 20 L Anion Gap 14 BUN 25 H Creatinine 1.61 H Estim Creat Clear Calc 39.5 Estimated GFR 32 Random Glucose 93 Calcium 8.4 Total Bilirubin 0.2 AST 31 ALT 7 Alkaline Phosphatase 93 Total Protein 5.7 L Albumin 3.0 L Urine Color Dark Yellow Urine Appearance Turbid Urine pH 6.5 Ur Specific [place] 1.020 Urine Protein 300 (3+) H Urine Glucose (UA) Negative Urine Ketones Trace Urine Blood Large (3+) H Urine Nitrite Negative Ur Leukocyte Esterase Large (3+) H Urine RBC >20 H Urine WBC >50 H Urine WBC Clumps Present Ur Squamous Epith Cells 3-5 Urine Bacteria 4+ Hyaline Casts 3-5 Influenza Type A (PCR) NEGATIVE Influenza Type B (PCR) NEGATIVE RSV RNA Qual (PCR) NEGATIVE SARS-CoV-2 RNA (RT-PCR) NEGATIVE Preliminary micro results at discharge 10/12/25 15:27 Urine Culture - Preliminary Urine Other - Nephrostomy Culture in progress. Discharge Plan Discharge Anticipated Discharge Date/Time: 10/13/25 13:06 Patient Disposition: Home, Self-Care Discharge Diagnosis: Pneumonia Referrals: Meg Lockett MD [Primary Care Provider, Internal Medicine] - 1 Week Discharge Medications: New doxycycline hyclate 100 mg tablet 100 mg PO BID Qty: 14 0RF Continued Eliquis 5 mg tablet 5 mg PO BID Qty: 60 4RF acetaminophen 500 mg Tablet 1,000 mg PO Q6H PRN (Reason: Pain) labetalol 100 mg Tablet 300 mg PO BID Qty: 60 0RF Discharge Orders: Discharge Order (Routine); Ordered 10/13/25 Ordered By: Santo Newby Diet: Advance to usual diet Activity on Discharge: As tolerated Stand Alone Forms: Patient Portal Discharge page Print Language: German Care Plan Goals: Doxycycline 100 mg twice daily has been sent to your pharmacy. Complete this for a likely bronchitis Health Concerns: Resume all meds as taken previous to hospital Plan of Treatment: Follow up with Oncology as scheduled Assessment: See discharge summary
--- NOTE | 2025-10-13 13:31 | MHC.CM.PN ---
PT CD HOME PRIOR TO BEING SEEN BY CM PT DD HOME SELF CAR
--- NOTE | 2025-10-13 15:15 | PC.NURSE ---
iv site removed, pt getting dressed to be ready for when her sister comes to pick her up as discharge
== END 2025-10-13 16:12 | disposition home or self-care (01) ==
LOC: HO.ED 16:45 → HO.EDOVER 17:26
PROVIDERS: Nurse Practitioner; Admitting Provider Hospitalist; Emergency Provider Emergency Medicine; PCP Internal Medicine; Visit Provider Hospitalist
DX: I95.9 Hypotension, unspecified (principal); I82.411 Acute embolism and thrombosis of right femoral vein; J18.9 Pneumonia, unspecified organism; I12.9 Hypertensive chronic kidney disease with stage 1 through stage 4 chronic kidney disease, or unspecified chronic kidney disease; N18.9 Chronic kidney disease, unspecified; Z87.891 Personal history of nicotine dependence; I49.1 Atrial premature depolarization; R10.9 Unspecified abdominal pain; R06.00 Dyspnea, unspecified; Z03.818 Encounter for observation for suspected exposure to other biological agents ruled out; Z79.899 Other long term (current) drug therapy; Z79.01 Long term (current) use of anticoagulants
CPT/HCPCS: 36415; 71275; 74177; 80048; 80053; 80076; 81001; 85025; 85610; 87086; 87637; 93005; 96361; 96365; 96366; 99221; 99285; J0456; J0696; Q9967

== ENCOUNTER → 2025-10-12 12:14 | Outpatient (BNV) | payer MEDICARE, SELFPAY | PROVIDERS: Admitting Provider Hospitalist; Emergency Provider Emergency Medicine; PCP Internal Medicine; Visit Provider Internal Medicine | DX: I49.1 Atrial premature depolarization (principal) | CPT/HCPCS: 93010 ==

== ENCOUNTER → 2025-10-12 12:50 | Outpatient (BNV) | payer MEDICARE, SELFPAY | PROVIDERS: PCP Internal Medicine; Visit Provider Radiology Diagnostic Radiology | DX: R91.8 Other nonspecific abnormal finding of lung field (principal) | CPT/HCPCS: 71275 ==

== ENCOUNTER → 2025-10-12 17:07 | Outpatient (BNV) | payer MEDICARE, SELFPAY | PROVIDERS: Admitting Provider Hospitalist; Emergency Provider Emergency Medicine; PCP Internal Medicine; Visit Provider Hospitalist | DX: I82.411 Acute embolism and thrombosis of right femoral vein (principal); I95.9 Hypotension, unspecified | CPT/HCPCS: 99223; 99239 ==

== ENCOUNTER 2025-10-26 13:37 | Inpatient (IN) | payer MEDICARE, MEDICAID, SELFPAY ==
--- NOTE | ~2025-10-26 | CT_ITS ---
CLINICAL HISTORY: Abd Pain, Malignancy CT of the abdomen and pelvis utilizing intravenous contrast. Comparison 10/12/2025. Findings: A small hepatic hypodensity is likely a cyst. There is cholelithiasis. No pericholecystic inflammatory changes are seen. The right nephro ureteral stent is in place. The distal loop is at the UVJ. There is no hydronephrosis. Spleen size is upper limits of normal. The pancreas is unremarkable. No abdominal aortic aneurysm. Small hiatal hernia. There is mild portal and retroperitoneal adenopathy that is technically indeterminate. There is a large retroperitoneal mass in the right extending into the pelvis. This measures a maximum of approximately 15 cm from superior to inferior this is similar to previous. There is probable occlusion of the right iliac veins secondary to the mass. There is a small mild of fluid extending superiorly from the mass that is indeterminate. No diverticulitis is identified. Normal appendix. No bowel obstruction. Small umbilical hernia. There is mild indeterminate bladder wall thickening. There are prominent uterine masses similar to previous. There is L5 spondylolysis with spondylolisthesis. Impression: Cholelithiasis. Large right retroperitoneal mass similar in size to previous. Indeterminate uterine mass versus masses similar to previous. Mild bladder wall thickening may relate to incomplete distention although cystitis is a possibility. Additional findings as above. This document has been electronically signed by: Guilherme Bashir MD on 10/26/2025 17:43:00
--- NOTE | ~2025-10-26 | CT_ITS ---
CLINICAL HISTORY: PE r o, Afib RVR CT angiogram of the chest. Multiplanar MIPS were obtained. No comparison provided. Findings: There is mild motion artifact. No acute PE is identified. In the right interlobar pulmonary artery there is a small linear density that could represent sequela of prior PE. No dissection of the thoracic aorta is seen. There is coronary artery calcification. There is no pleural effusion. A small amount of pericardial fluid is likely incidental. Peripherally in the right mid lung there is a 1.7 cm parenchymal opacity with irregular margins that is indeterminate. There are additional scattered irregular densities in the right upper lobe that could represent scarring but are technically indeterminate. There is mild scarring in the right middle and lower lobes. There is heterogeneous attenuation of the lungs that may relate to air trapping. There is cholelithiasis. Spleen size is upper limits of normal. Impression: No acute PE is identified. Small web in the right interlobar pulmonary artery. Indeterminate parenchymal opacity right mid lung. Neoplasm should be excluded. Scattered irregular densities right upper lobe technically indeterminate. Possible air trapping in the lungs. Cholelithiasis. This document has been electronically signed by: Guilherme Bashir MD on 10/26/2025 17:42:49
[2025-10-26 13:42] VITALS: BP 114/73; PULSE 70; O2SAT 98
[2025-10-26 13:45] VITALS: BP 113/57; PULSE 87; RESP 16; TEMP 36.5; O2SAT 99; BMI 32.4
--- NOTE | 2025-10-26 14:27 | ECG_ITS ---
Test Reason : WEAKNESS Blood Pressure : */* mmHG Vent. Rate : 124 BPM Atrial Rate : * BPM P-R Int : * ms QRS Dur : 68 ms QT Int : 284 ms P-R-T Axes : * 56 65 degrees QTcB Int : 408 ms Normal sinus rhythm short run of PACs vs burst of atrial fibrillatoin Premature ventricular complexes vs aberrant conduction Abnormal ECG When compared with ECG of 12-Oct-2025 12:35, Vent. rate has increased by 45 bpm Referred By: Generic ED Physician Electronically Signed By: DARIO FIGUEROA
[2025-10-26 15:16] LABS: Hematocrit 33.8 % (37.0-47.0); Hemoglobin 10.5 g/dl (12.0-16.0); Imm Gran Abs Auto 0.16 X10*3/uL (0.00-0.03); Imm Gran Pct Auto 0.8 % (0.0-0.4); Lymphocytes Absolute Auto 1.3 X10*3/uL (1.2-4.9); MANUAL DIFF FLAG NO; Mean Corpuscular HGB Conc 31.1 g/dl (31.0-35.0); Mean Corpuscular Hemoglobin 22.9 pg (27.0-33.0); Mean Corpuscular Volume 73.8 fL (80.0-98.0); NRBC Abs Auto 0.000 X10*3/uL (0.0-0.012); NRBC Pct Auto 0.0 /100WBC (0.0-0.2); Platelet Count 318 X10*3/uL (160-400); Red Blood Count 4.58 X10*6/uL (4.20-5.50); White Blood Count 19.2 X10*3/uL (4.8-10.8)
[2025-10-26 15:42] LABS: Alanine Aminotransferase 10 U/L (0-31); Albumin Level 3.5 g/dL (3.5-5.0); Alkaline Phosphatase 129 U/L (39-117); Anion Gap 15 (12-20); Aspartate Amino Transferase 38 U/L (5-31); Blood Urea Nitrogen 27 mg/dL (9-16); Calcium 9.0 mg/dL (8.4-10.2); Carbon Dioxide 22 mmol/L (22-29); Chloride 106 mmol/L (96-108); Creatinine Clr Calc Pharmacy 32.2; Estimated Glomerular Filt Rate 27; Potassium 3.9 mmol/L (3.3-5.1); Sodium 139 mmol/L (135-145); Total Protein 6.4 g/dL (6.5-8.0)
[2025-10-26 15:55] LABS: Resp Syncy Virus RNA Qual PCR NEGATIVE (Negative); SARS COV2 PCR INHOUSE NEGATIVE (Negative)
--- NOTE | 2025-10-26 16:11 | MHC.EDTECH ---
Ekg delay due to both ekg machine being used. nurse aware
--- NOTE | 2025-10-26 16:15 | ED_ITS ---
HPI - General Adult General Chief complaint: Weakness Stated complaint: weakness Time Seen by Provider: 10/26/25 16:08 History of Present Illness ED Provider: Jessi Fountain NP HPI narrative: 65-year-old female, medical history significant for hypertension, CKD without known stage, prior diagnoses of right lower extremity DVT from the right common femoral to popliteal veins chronically anticoagulated on Eliquis, ? 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 Pena, presents to the ED for evaluation reporting generalized weakness and fatigue ongoing for several days. She reports having vaginal bleeding that is been ongoing for several weeks, and was told by her Heme-Onc provider to not take her Eliquis medication if the vaginal bleeding was heavy. Therefore, she did not take her dose of Eliquis today. She reports some shortness of breath, a cough that has been ongoing for 1-2 weeks. During her last admission to the hospital she was prescribed a course of antibiotics, but reportedly did not take them because antibiotics make her sick to her stomach . Does report decreased oral intake, mild nausea without vomiting, no diarrhea or constipation. Reports the pain has improved in the right lower quadrant of the abdomen. The nephrostomy tube remains intact to the right flank, but she is also now making urine via the urethra. She denies any chest pain or pressure, palpitations. Denies any fever, chills, recent illnesses. She is not currently undergoing treatment for the malignancy. Related Data Home Medications ?Medication ?Instructions ?Recorded ?Confirmed acetaminophen 500 mg tablet 1,000 mg PO Q6H PRN Pain 1 12/12/24 10/12/25 Previous Rx's ?Medication ?Instructions ?Recorded labetalol 100 mg tablet 300 mg (3 x 100 mg) PO BID # 60 tabs 09/24/25 apixaban 5 mg tablet (Eliquis) 5 mg PO BID #60 tabs doxycycline hyclate 100 mg tablet 100 mg PO BID #14 ta bs 10/13/25 Allergies Allergy/AdvReac Type Severity Reaction Status Date / Time amoxicillin Allergy Intermediate Unknown Verified 10/26/25 13:46 codeine (CODEINE) Allergy Intermediate UNKNOWN Verified 10/26/25 13:46 Penicillins (PENICILLINS) Allergy Intermediate UNKNOWN Verified 10/26/25 13:46 clonidine Allergy Unknown tongue/facial Verified 10/26/25 13:46 swelling terazosin (TERAZOSIN) Allergy Unknown UNKNOWN, Verified 10/26/25 13:46 leg pain ? swelling valsartan (VALSARTAN) Allergy Unknown UNKNOWN, Verified 10/26/25 13:46 edema acetaminophen (Percocet) AdvReac Unknown N/V Verified 10/26/25 13:46 amlodipine AdvReac Unknown Difficulty Verified 10/26/25 13:46 Breathing oxycodone (Percocet) AdvReac Unknown N/V Verified 10/26/25 13:46 penicillin V AdvReac Unknown N/V Verified 10/26/25 13:46 Codeine Sulfate AdvReac Unknown N/V Uncoded 10/12/25 11:51 Review of Systems 2 Review of Systems: ROS is otherwise negative unless mentioned in HPI. 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 Mass of uterus HTN (hypertension) Renal insufficiency Family History Family History Mother HTN (hypertension) Colon cancer Father HTN (hypertension) Social History Social History Household Members: None Housing: Apartment Do you presently have visiting nurse or other home services: No Alcohol intake: never Comment: low fall risk Patient Tobacco Use Status: Never used Tobacco Tobacco use type: Cigarette e-Cigarette/Vaping Use: Never Used Second Hand Smoke Exposure: Yes Advance Directives: Yes Advance Directives on File: Yes Advance Directives Date on File: 09/28/25 Do you have a plan to hurt others: No Plan Current occupational status: retired Cognitive needs: Yes (Walker) Hearing needs: No Vision needs: Yes (Glasses) Physical Exam ED Exam Exam: Nursing notes and vital signs reviewed. Constitutional: Well-appearing, NAD. Alert. Oriented X3. Eyes: EOMI. ENT: Pharynx normal. Neck: Normal inspection. Neck supple. CVS: Tachycardic rate, irregular rhythm. Pulses normal. Respiratory: No respiratory distress. Breath sounds normal. Abdomen: Soft and nontender, nondistended. Skin: Skin warm and dry. Normal skin color. Extremities: No lower extremity edema. Neuro: Oriented X 3. No motor deficit. Vital Signs: Vital Signs - 24 hr 10/26/25 13:45 10/26/25 18:23 10/26/25 18:32 Temperature 97.7 F Pulse Rate 87 92 95 Respiratory Rate 16 20 Blood Pressure 113/57 L 142/89 H 149/89 H Pulse Oximetry 99 99 Oxygen Delivery Method Room Air Room Air 10/26/25 20:33 Temperature 97.9 F Pulse Rate 74 Respiratory Rate 23 H Blood Pressure 133/73 Pulse Oximetry 99 Oxygen Delivery Method Room Air BMI result Body Mass Index 32.4 Medications Administered Discontinued Medications Generic Name Dose Route Start Last Admin Trade Name Freq PRN Reason Stop Dose Admin Apixaban 5 mg 10/26/25 17:06 10/26/25 18:32 Apixaban 5 Mg Tablet PO 10/26/25 17:07 5 mg ONCE ONE Administration Sodium Chloride 1,000 mls @ 999 mls/hr 10/26/25 16:25 10/26/25 18:16 Ns IV 10/26/25 17:25 Infused .Q1H1M ONE Infusion Ceftriaxone Sodium 1 gm/ 50 mls @ 100 mls/hr 10/26/25 16:25 10/26/25 18:16 Sodium Chloride IV 10/26/25 16:54 Infused ONCE ONE Infusion Iohexol 100 ml 10/26/25 16:44 10/26/25 16:48 Iohexol 350 Mg/Ml 100 Ml Infus..Btl IV 10/26/25 16:45 85 ml ONCE ONE Administration Labetalol HCl 300 mg 10/26/25 17:06 10/26/25 18:32 Labetalol Hcl 100 Mg Tablet PO 10/26/25 17:07 300 mg ONCE ONE Administration Protocol Medical Decision Making Medical Decision Making [facility] Narrative: 7692-- I personally examined this patient at this time. This patient is known to me, from a prior ER visit about 2 weeks ago. Upon my assessment she overall appears well, she is mildly tachycardic in the low 100s to 110s. She does have history of atrial fibrillation, and EKG showed atrial fibrillation with RVR in the 120s. Similar to previous EKG. Patient did not take her Eliquis today, as she has had noted vaginal bleeding ongoing for now several weeks. She reported preparing for a visit today and feeling too fatigued/generally weak to go to the appointment. Upon my assessment I have added on a fluid bolus, 1 g of Rocephin for antibiotic coverage given the leukocytosis to 19, orders for lactic acid, blood cultures, as well as CT imaging to rule out PE of the chest, and CT of the abdomen and pelvis. At this time I do not have concern for sepsis as she has an acute kidney injury with creatinine level elevated to 1.8 in comparison to 1.6, and likely has a component of acute dehydration due to generalized fatigue. I do suspect underlying cystitis, or worsening malignancy causing progressive leukocytosis. We will plan to rule out underlying PE given she has missed Eliquis doses and has a known history of DVT with complaints of shortness of breath, administer a fluid bolus and assess for improvement in her heart rate. I do not want to give any beta blockers/HR correction if the underlying cause of her tachycardia is PE, and therefore will administer a fluid bolus and wait for scans. We will also obtain CT imaging of the abdomen and pelvis to assess for worsening malignancy/underlying pathology and reassess. She is not experiencing any acute anemia, her H/H is stable in comparison to previous. The viral panel is negative. She does have a right nephrostomy tube, though tells me she is actively making urine via the urethra. We will obtain urine sample through the right nephrostomy and bladder. 1733-- Lactic acid is flat at 1.9. Again I have no concern for sepsis. Pending UA from both sites, CT imaging has been performed but not yet interpreted by radiology. After speaking with Dr. Pena, given she did not take her morning medications of Eliquis and labetalol, I have ordered for her to receive a dose here. I do not have any clinical suspicion for acute anemia from vaginal bleeding given H&H is stable. 1840-- Upon reassessment she appears well, status has improved. Heart rate has been bouncing around from mid to low 80s to 130s. She does not feel this. She was given her home dose of labetalol, Eliquis. The CTA of the chest shows no evidence of PE, no overt pneumonia. There is some concern for malignancy in the chest. Additionally the CT of the abdomen and pelvis reveals redemonstration of the known malignancy. Plan to control heart rate, as lactic acid as flat, what appears to be underlying arrhythmia. Pending urinalysis. 2039-- Heart rate is now stabilized in the 80s to 90s. She remains in AFib. Hemodynamically stable. Urinalysis samples both show infection, we will large blood, leukocytes, bacteria and white cells. She was empirically treated earlier in the day with Rocephin. I considered PT/cm evaluation, however she has rising leukocytosis in the setting of generalized weakness and infection. Therefore, admission is warranted for IV antibiotics and continued treatment, can see PT/CM inpatient. Signed out to hospitalist Dr. Turner. Differential Diagnosis Differential Diagnoses: The differential diagnosis associated with the presentation includes Worsening malignancy, acute kidney injury, PE, cystitis Admission/Observation Consideration of admission/observation: Escalation of care including admission/observation considered (Yes, indicated given the rising leukocytosis in the setting of active infection. ) Consult Healthcare Provider Management of the patient was discussed with: Hospitalist and St[employer] Setter [employer] Driller (Heme/Onc Dr. Pena ) Lab Data MDM Lab Attestation statement: I reviewed the patient's lab results. Cr elevation to 1.86, has been higher > 2 before, but increased from most recent 10/13, 1.61. Significant leukocytosis to 19.2, baseline anemia which has improved. Neg COVID/FLU/RSV. 10/26/25 14:59 10/26/25 14:59 Labs: Lab Results 10/26/25 10/26/25 10/26/25 Range/Units 14:59 16:58 18:54 WBC 19.2 H (4.8-10.8) X10*3/uL RBC 4.58 (4.20-5.50) X10*6/uL Hgb 10.5 L (12.0-16.0) g/dl Hct 33.8 L (37.0-47.0) % MCV 73.8 L (80.0-98.0) fL MCH 22.9 L (27.0-33.0) pg MCHC 31.1 (31.0-35.0) g/dl RDW 16.2 H (11.0-16.0) % Plt Count 318 D (160-400) X10*3/uL MPV 9.7 (9.4-12.3) fL Immature Gran % (Auto) 0.8 H (0.0-0.4) % Neut % (Auto) 87.1 H (45-73) % Lymph % (Auto) 6.9 L (20-40) % [place] % (Auto) 4.0 (2-11) % Eos % (Auto) 0.7 (0-4) % Baso % (Auto) 0.5 (0-2) % Lymph # (Auto) 1.3 (1.2-4.9) X10*3/uL [place] # (Auto) 0.8 (0.1-1.2) X10*3/uL Eos # (Auto) 0.1 (0.0-0.4) X10*3/uL Baso # (Auto) 0.1 (0.0-0.2) X10*3/uL Abs Immat Gran (auto) 0.16 H (0.00-0.03) X10*3/uL Absolute Neuts (auto) 16.8 H (2.0-8.3) x10*3/uL Absolute Nucleated RBC 0.000 (0.0-0.012) X10*3/uL Nucleated RBC % (auto) 0.0 (0.0-0.2) /100WBC Sodium 139 (135-145) mmol/L Potassium 3.9 (3.3-5.1) mmol/L Chloride 106 (96-108) mmol/L Carbon Dioxide 22 (22-29) mmol/L Anion Gap 15 (12-20) BUN 27 H (9-16) mg/dL Creatinine 1.86 H (0.5-1.4) mg/dL Estim Creat Clear Calc 32.2 Estimated GFR 27 Random Glucose 103 (60-115) mg/dL Lactic Acid 1.9 (0.5-2.0) mmol/L Calcium 9.0 D (8.4-10.2) mg/dL Total Bilirubin 0.3 (0.0-1.0) mg/dL AST 38 H (5-31) U/L ALT 10 (0-31) U/L Alkaline Phosphatase 129 H (39-117) U/L Total Protein 6.4 L (6.5-8.0) g/dL Albumin 3.5 (3.5-5.0) g/dL Urine Color Yellow Urine Appearance Turbid Urine pH 6.0 (5.0-9.0) Ur Specific [place] >= 1.030 H (1.005-1.025) Urine Protein 300 (3+) H (Neg-Trace) mg/dL Urine Glucose (UA) Negative (Negative) mg/dL Urine Ketones Trace (Negative) mg/dL Urine Blood Large (3+) H (Negative) Urine Nitrite Negative (Negative) Ur Leukocyte Esterase Large (3+) H (Negative) Urine RBC 6-10 H (0-2) /HPF Urine WBC >50 H (0-5) /HPF Ur Squamous Epith Cells 3-5 (0-2) /HPF Urine Bacteria 4+ (None Seen) Hyaline Casts 11-20 (0-2) /LPF Influenza Type A (PCR) NEGATIVE (Negative) Influenza Type B (PCR) NEGATIVE (Negative) RSV RNA Qual (PCR) NEGATIVE (Negative) SARS-CoV-2 RNA (RT-PCR) NEGATIVE (Negative) 10/26/25 Range/Units 18:56 WBC (4.8-10.8) X10*3/uL RBC (4.20-5.50) X10*6/uL Hgb (12.0-16.0) g/dl Hct (37.0-47.0) % MCV (80.0-98.0) fL MCH (27.0-33.0) pg MCHC (31.0-35.0) g/dl RDW (11.0-16.0) % Plt Count (160-400) X10*3/uL MPV (9.4-12.3) fL Immature Gran % (Auto) (0.0-0.4) % Neut % (Auto) (45-73) % Lymph % (Auto) (20-40) % [place] % (Auto) (2-11) % Eos % (Auto) (0-4) % Baso % (Auto) (0-2) % Lymph # (Auto) (1.2-4.9) X10*3/uL [place] # (Auto) (0.1-1.2) X10*3/uL Eos # (Auto) (0.0-0.4) X10*3/uL Baso # (Auto) (0.0-0.2) X10*3/uL Abs Immat Gran (auto) (0.00-0.03) X10*3/uL Absolute Neuts (auto) (2.0-8.3) x10*3/uL Absolute Nucleated RBC (0.0-0.012) X10*3/uL Nucleated RBC % (auto) (0.0-0.2) /100WBC Sodium (135-145) mmol/L Potassium (3.3-5.1) mmol/L Chloride (96-108) mmol/L Carbon Dioxide (22-29) mmol/L Anion Gap (12-20) BUN (9-16) mg/dL Creatinine (0.5-1.4) mg/dL Estim Creat Clear Calc Estimated GFR Random Glucose (60-115) mg/dL Lactic Acid (0.5-2.0) mmol/L Calcium (8.4-10.2) mg/dL Total Bilirubin (0.0-1.0) mg/dL AST (5-31) U/L ALT (0-31) U/L Alkaline Phosphatase (39-117) U/L Total Protein (6.5-8.0) g/dL Albumin (3.5-5.0) g/dL Urine Color Yellow Urine Appearance Cloudy Urine pH 5.5 (5.0-9.0) Ur Specific [place] >= 1.030 H (1.005-1.025) Urine Protein 100 (2+) H (Neg-Trace) mg/dL Urine Glucose (UA) Negative (Negative) mg/dL Urine Ketones Trace (Negative) mg/dL Urine Blood Large (3+) H (Negative) Urine Nitrite Negative (Negative) Ur Leukocyte Esterase Moderate (2+) H (Negative) Urine RBC 3-5 H (0-2) /HPF Urine WBC 21-50 (0-5) /HPF Ur Squamous Epith Cells 3-5 (0-2) /HPF Urine Bacteria 4+ (None Seen) Hyaline Casts 3-5 (0-2) /LPF Influenza Type A (PCR) (Negative) Influenza Type B (PCR) (Negative) RSV RNA Qual (PCR) (Negative) SARS-CoV-2 RNA (RT-PCR) (Negative) Independent Interpretation I performed an independent interpretation of an: EKG Interpretation: Rate: 124 Rhythm: Afib, PVCs [place]: No P waves. Normal QRS complex. ST T wave : no dep, elev qTC: 408 prior studies: hx of afib The study has been interpreted contemporaneously by me. Radiology Impression Discussion of test interpretation with radiology: I have reviewed the radiologist's reading. Radiologist Impression: CT Abdomen Pelvis W Impression: Cholelithiasis. Large right retroperitoneal mass similar in size to previous. Indeterminate uterine mass versus masses similar to previous. Mild bladder wall thickening may relate to incomplete distention although cystitis is a possibility. Additional findings as above. CTA Chest Impression: No acute PE is identified. Small web in the right interlobar pulmonary artery. Indeterminate parenchymal opacity right mid lung. Neoplasm should be excluded. Scattered irregular densities right upper lobe technically indeterminate. Possible air trapping in the lungs. Cholelithiasis. Independent Historian Clinical information obtained from an independent historian. History obtained from or confirmed by: EMS External Record Review External record reviewed: Inpatient record, Office record, Outpatient record and Prior outpatient labs Chronic Conditions Patient?s care impacted by: Hypertension, Cancer and Other (CKD, DVT) Social Determinants Patient?s care significantly limited by Social Determinants of Health including: Problems related to primary support group Discharge Plan Discharge Clinical Impression: Acute UTI, General weakness, Leukocytosis, SARAI (acute kidney injury), Cancer Patient Disposition: Admitted As Inpatient Print Language: Mauritanian
[2025-10-26] MEDS: iohexoL 350 MG/ML 100 ML INFUS..BTL IV (16:48)
--- NOTE | 2025-10-26 17:17 | PC.NURSE ---
first set of cultures 1658, second set 1705. tube system down, cultures had to be walked by pct - hence scanning of antibiotic prior to second set being collected by lab
--- OUTSIDE RECORDS SUMMARY | 2025-10-26 17:25 | XMS_ITS | Clinical Summary ---
Author Organization [facility] Address [address] [place] [address] [place] [phone] Phone Care Team Providers Care Grassland Conservationist Name Role Phone Unavailable Primary Care Provider Unavailabl e Encounters Date Type Department Care Team Description 09/18/2025 Orders Only [facility] [address] [place] [address] Homehealth, Interface ProviderMD from Last 3 Months Social History Tobacco Use Types Packs/Day Years Used Date Smoking Tobacco: Never Assessed Education Answer Date Recorded Are you interested in more education? Not on andrae e 09/18/2025 Are you concerned about learning? Not on file 09/18/2025 No 09/18/2025 No 09/18/2025 Digital Access Answer Date Recorded No 09/18/2025 No 09/18/2025 Reliable internet access at home? Not on file 09/18/2025 Device with a working camera? Not on file Comments Unknown Sex and Gender Information Value Date Recorded Sex Assigned at Not on file Legal Sex Female 2:15 PM EDT Gender Identity Not on file Sexual Orientation Not on file Plan of Treatment Not on file Medical Devices Not on file Insurance [place] [id number] MEDICARE PART A & B MEDICARE PART A & B MEDICARE PART A & B MEDICARE PART A & B MEDICARE PART A & B MEDICARE PART A & B Additional Source Comments The information contained in this document represents components of the legal health record. It is not the complete legal health record.[facility]
--- OUTSIDE RECORDS SUMMARY | 2025-10-26 17:25 | XMS_ITS | Encounter Summary ---
Author Organization [employer] Address [address] [facility] [address] [place] [address] Care Team Providers Care Rn Delivery Name Role Phone Unavailable Primary Care Provider Unavailabl e Encounter Details Date Type Department Care Team (Late st Contact Info) Description 09/29/2025 Orders Only [facility] [address] [place] [address] PcpGary Unassigned Social History Tobacco Use Types Packs/Day Years Used Date Smoking Tobacco: Never Assessed Comments Unknown Sex and Gender Information Value Date Recorded Sex Assigned at Female 09/23/2025 11:56 AM EDT Legal Sex Female 11:55 AM EDT Gender Identity Female 09/23/2025 11:56 AM EDT Sexual Orientation Straight 09/23/2025 11 :56 AM EDT documented as of this encounter Plan of Treatment Not on file documented as of this encounter Procedures Procedure Name Priority Date/Time Associated Diagnosis Comments CT ABDOMEN MASS PERCUTANEOUS OR RETROPERITONEAL BIOPSY Routine 09/18/2025 11:35 AM EDT CBC WITH AUTO DIFFERENTIAL Routine 09/16 11:40 AM EDT US VENOUS DUPLEX LE RT Routine 11:[address] ABDOMEN PELVIS W CONTRAST Routine 09/16/2025 11:37 AM EDT documented in this encounter Results * CT Abdomen Mass Percutaneous or Retroperitoneal (09/18/2025 11:35 AM EDT) Anatomical Region Laterality Modality Computed Tomogra phy [facility] Unassigned Pcp IMG CT PROCEDURES Final Result * CBC auto differential (09/16/2025 11:40 AM EDT) Blood Venous blood specimen / Unknown us [place] Unassigned Pcp LAB BLOOD ORDERABLES Fin al Result * US VENOUS DUPLEX LE RT (09/16/2025 11:38 AM EDT) Anatomical Region Laterality Modality Abdomen Ultrasound us [place] Unassigned Pcp IMG US PROCEDURES Final Result * CT Abdomen Pelvis w/ Contrast (09/16/2025 11:37 AM EDT) Anatomical Region Laterality Modality Body, Pelvis, Abdomen Computed T omography us [place] Unassigned Pcp IMG CT PROCEDURES Final Result documented in this encounter Visit Diagnoses Not on filedocumented in this encounter
--- OUTSIDE RECORDS SUMMARY | 2025-10-26 17:25 | XMS_ITS | Clinical Summary ---
Author Organization [employer] Address [address] [facility] [address] [place] [address] Care Team Providers Care Live Out Nanny Name Role Phone Unavailable Primary Care Provider Unavailabl e Encounters Date Type Department Care Team Description 09/29/2025 Orders Only [facility] [address] [place] [address] PcpGary Unassigned 09/23/2025 Telephone [facility] [address] [place] [address] Bryce Parry NP Hospital Discharge / [facility] (Chrissy/Tours Hostess from [facility] called New patient line, registered patient who lives in [facility] and does not have a PCP. Will be discharging from [facility] today or tomorrowand needs a PCP. Admitted on [id number] for right flank pain, right quadrant pain. Patient is also likely going to need VNA services. She will be a new patient. They will be faxing discharge summary once patient is discharged.) from Last 3 Months Social History Tobacco Use Types Packs/Day Years Used Date Smoking Tobacco: Never Assessed Comments Unknown Sex and Gender Information Value Date Recorded Sex Assigned at Female 09/23/2025 11:56 AM EDT Legal Sex Female 11:55 AM EDT Gender Identity Female 09/23/2025 11:56 AM EDT Sexual Orientation Straight 09/23/2025 11 :56 AM EDT Plan of Treatment Health Maintenance Due Date Last Done Comments CT Colonography 1958 Colonoscopy 1958 Colorectal Cancer Screening 1958 Depression Screening 1958 FIT DNA/Cologuard 1958 FIT 1958 FOBT 1958 SDOH Screening 1958 Sigmoidoscopy 1958 Alcohol/Substance Use Screening 1970 Tobacco Screening 1970 Hepatitis C Screening 1976 DTaP/Tdap/Td Vaccines (1 - Tdap) 1977 Mammogram 1998 Pneumococcal Vaccine: 50+ Ye ars (1 of 1 - PCV) 2008 Zoster Vaccines (1 of 2) 2008 COVID-19 Vaccine (1 - 2024-2 6 season) 2025 Influenza Vaccine (#1) 2025 RSV Patients and Pa tients Aged 60 years or older (1 - 1-dose 75+ series) 2033 HIB Vaccines Aged Out No longer eligi ble based on patient's age to complete this topic HPV Vaccines Aged Out No longer eligi ble based on patient's age to complete this topic Hepatitis A Vaccines Aged Out No long er eligible based on patient's age to complete this topic Hepatitis B Vaccines Aged Out No long er eligible based on patient's age to complete this topic IPV Vaccines Aged Out No longer eligi ble based on patient's age to complete this topic Meningococcal B Vaccine Aged Out No l onger eligible based on patient's age to complete this topic Meningococcal Vaccine Aged Out No yamile shon eligible based on patient's age to complete this topic RSV under 20 months Aged Out No longe r eligible based on patient's age to complete this topic Rotavirus Vaccines Aged Out No longer eligible based on patient's age to complete this topic Procedures Procedure Name Priority Date/Time Associated Diagnosis Comments CT ABDOMEN MASS PERCUTANEOUS OR RETROPERITONEAL BIOPSY Routine 09/18/2025 11:35 AM EDT CBC WITH AUTO DIFFERENTIAL Routine 09/16 11:40 AM EDT US VENOUS DUPLEX LE RT Routine 11:[address] ABDOMEN PELVIS W CONTRAST Routine 09/16/2025 11:37 AM EDT from Last 3 Months Results * CT Abdomen Mass Percutaneous or Retroperitoneal (09/18/2025 11:35 AM EDT) Anatomical Region Laterality Modality Computed Tomogra phy [place] Unassigned Pcp IMG CT PROCEDURES Final Result * CBC auto differential (09/16/2025 11:40 AM EDT) Blood Venous blood specimen / Unknown us [place] Unassigned Pcp LAB BLOOD ORDERABLES Fin al Result * US VENOUS DUPLEX LE RT (09/16/2025 11:38 AM EDT) Anatomical Region Laterality Modality Abdomen Ultrasound us [facility] Unassigned Pcp IMG US PROCEDURES Final Result * CT Abdomen Pelvis w/ Contrast (09/16/2025 11:37 AM EDT) Anatomical Region Laterality Modality Body, Pelvis, Abdomen Computed T omography [facility] Unassigned Pcp IMG CT PROCEDURES Final Result from Last 3 Months Insurance [place]IC[place] [address] [place] [id number]
--- OUTSIDE RECORDS SUMMARY | 2025-10-26 17:25 | XMS_ITS | Encounter Summary ---
Author Organization [employer] Address [address] [place] [address] Care Team Providers [employer] Team Member Name Role Phone Unavailable Primary Care Provider Unavailabl e Reason for Visit * Reason Onset Date Comments Hospital Discharge / [facility] 09/23/2025 Chrissy/Toolroom Keeper from [facility] called New patient line, registered patient who lives in [facility] and does not have a PCP. Will be discharging from [facility] today or tomorrowand needs a PCP. Admitted on [id number] for right flank pain, right quadrant pain. Patient is also likely going to need VNA services. She will be a new patient. They will be faxing discharge summary once patient is discharged. Encounter Details Date Type Department Care Team (Late st Contact Info) Description 09/23/2025 Telephone [facility] MEDICAL [address] [place] [address] Bryce Parry NP [address] [place] [address] Hospital Discharge / [facility] (Chrissy/Toolroom Keeper from [facility] called New patient line, registered patient who lives in [facility] and does not have a PCP. Will be discharging from [facility] today or tomorrowand needs a PCP. Admitted on [id number] for right flank pain, right quadrant pain. Patient is also likely going to need VNA services. She will be a new patient. They will be faxing discharge summary once patient is discharged.) Social History Tobacco Use Types Packs/Day Years Used Date Smoking Tobacco: Never Assessed Comments Unknown Sex and Gender Information Value Date Recorded Sex Assigned at Female 09/23/2025 11:56 AM EDT Legal Sex Female 11:55 AM EDT Gender Identity Female 09/23/2025 11:56 AM EDT Sexual Orientation Straight 09/23/2025 11 :56 AM EDT documented as of this encounter Miscellaneous Notes * Telephone Encounter - Deedee Magaña LPN - 09/23/2025 12:29 PM EDT Hospital should be setting up VNA services for patient prior to discharge. Encounter to Giselle Escudero as update. Encounter to HIM to obtain discharge when available. * Telephone Encounter - Elva Escudero - 09/23/2025 12:10 PM EDT Chrissy/Toolroom Keeper from [facility] called New patient line, registered patient who lives in [facility] and does not have a PCP. Will be discharging from [facility] today or tomorrowand needs a PCP. Admitted on [id number] for right flank pain, right quadrant pain. Patient is also likely going to need VNA services. She will be a new patient. They will be faxing discharge summary once patient is discharged. documented in this encounter Plan of Treatment Not on file documented as of this encounter Visit Diagnoses Not on filedocumented in this encounter
[2025-10-26 18:23] VITALS: BP 142/89; PULSE 92; RESP 20; O2SAT 99
[2025-10-26 18:32] VITALS: BP 149/89; PULSE 95
[2025-10-26 19:46] LABS: Appearance Urine Turbid; Glucose Urine UA Negative (Negative); PH 6.0 (5.0-9.0); Specific Gravity - Urine >= 1.030 (1.005-1.025); UMIC TRIGGER UACC YES
[2025-10-26 19:47] LABS: Appearance Urine Cloudy; Glucose Urine UA Negative (Negative); PH 5.5 (5.0-9.0); Specific Gravity - Urine >= 1.030 (1.005-1.025); UMIC TRIGGER UACC YES
[2025-10-26 20:25] LABS: UACC Culture Trigger YES
[2025-10-26 20:30] LABS: UACC Culture Trigger YES
[2025-10-26 20:33] VITALS: BP 133/73; PULSE 74; RESP 23; TEMP 36.6; O2SAT 99
--- NOTE | 2025-10-26 21:09 | P.HPHOSP_ITS ---
History of Present Illness Date of Service: 10/26/25 Chief Complaint: gen weakness 65-year-old female with a past medical history of HTN, HLD, CKD, history of DVT- on Eliquis, endometrial adenocarcinoma with metastasis, anemia, recent admission to the hospital for pneumonia status post antibiotic therapy; presented to the hospital today with a chief complaint of generalized weakness. Patient reports that during her last admission to the hospital she has uterine bleeding; H&H was stable. After the discharge she had decreased bleeding. But over the past couple days she has increased bleeding. Has a decreased appetite. Feeling generally weak and tired. Denies any dysuria. Denies any fevers. Denies any chest pain or palpitations. Review of all other systems is negative except mentioned above ER course: Per ER team, patient's exam was nonfocal; abdominal exam benign; CT of the abdomen showed known cancer with metastasis. Possible cystitis. H&H fairly stable. Given antibiotics. 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 Mass of uterus HTN (hypertension) Renal insufficiency Family History Mother HTN (hypertension) Colon cancer Father HTN (hypertension) Social History Household Members: None Housing: Apartment Do you presently have visiting nurse or other home services: No Alcohol intake: never Comment: low fall risk Patient Tobacco Use Status: Never used Tobacco Tobacco use type: Cigarette e-Cigarette/Vaping Use: Never Used Second Hand Smoke Exposure: Yes Advance Directives: Yes Advance Directives on File: Yes Advance Directives Date on File: 09/28/25 Do you have a plan to hurt others: No Plan Current occupational status: retired Cognitive needs: Yes (Walker) Hearing needs: No Vision needs: Yes (Glasses) Meds Allergies Allergy/AdvReac Type Severity Reaction Status Date / Time amoxicillin Allergy Intermediate Unknown Verified 10/26/25 13:46 codeine (CODEINE) Allergy Intermediate UNKNOWN Verified 10/26/25 13:46 Penicillins (PENICILLINS) Allergy Intermediate UNKNOWN Verified 10/26/25 13:46 clonidine Allergy Unknown tongue/facial Verified 10/26/25 13:46 swelling terazosin (TERAZOSIN) Allergy Unknown UNKNOWN, Verified 10/26/25 13:46 leg pain ? swelling valsartan (VALSARTAN) Allergy Unknown UNKNOWN, Verified 10/26/25 13:46 edema acetaminophen (Percocet) AdvReac Unknown N/V Verified 10/26/25 13:46 amlodipine AdvReac Unknown Difficulty Verified 10/26/25 13:46 Breathing oxycodone (Percocet) AdvReac Unknown N/V Verified 10/26/25 13:46 penicillin V AdvReac Unknown N/V Verified 10/26/25 13:46 Codeine Sulfate AdvReac Unknown N/V Uncoded 10/12/25 11:51 Active Medications: Current Medications Albuterol/Ipratropium (Albuterol/Iprat 2.5/0.5mg 3 Ml Ampul.Neb) 3 ml INHALE Q4H PRN PRN Reason: Shortness of Breath/Wheezing Apixaban (Apixaban 5 Mg Tablet) 5 mg PO BID [facility] Benzonatate (Benzonatate 100 Mg Capsule) 100 mg PO TID PRN PRN Reason: Cough Calcium Carbonate (Calcium Carbonate 750 Mg Tab.Chew) 750 mg PO Q4H PRN PRN Reason: Heartburn Magnesium Hydroxide (Milk Of Magnesia 30 Ml Oral.Susp) 30 ml PO DAILY PRN PRN Reason: Constipation Melatonin (Melatonin 3 Mg Tablet) 6 mg PO BEDTIME PRN PRN Reason: Insomnia Sodium Chloride (0.9 % Sodium Chloride Flush 3 Ml Syringe) 3 ml IVFLUSH QSHIFT [facility] Home Medications ?Medication ?Instructions ?Recorded ?Confirmed ?Last Taken ?Type acetaminophen 500 mg tablet 1,000 mg PO Q6H PRN Pain 1 12/12/24 10/12/25 10/12/25 History Physical Exam 2 Vital Signs and Narrative: Vital Signs: Last Vital Signs Temp 97.9 F 10/26/25 20:33 Pulse 74 10/26/25 20:33 Resp 23 H 10/26/25 20:33 BP 133/73 10/26/25 20:33 Pulse Ox 99 10/26/25 20:33 O2 Del Method Room Air 10/26/25 20:33 BMI result Body Mass Index 32.4 Gen: Appears be in no acute distress HEENT: NCAT, Moist mucosa. Pulmonary: Vesicular breath sounds, fair air entry CVS: Normal S1-S2 Abdomen: BS+, Soft, Nontender Extremities: Warm well perfused Neuro: Alert and awake. Results Labs 10/26/25 14:59 10/26/25 14:59 Labs: Laboratory Results - last 24 hr 10/26/25 10/26/25 10/26/25 14:59 16:58 18:54 MCV 73.8 L MCH 22.9 L MCHC 31.1 RDW 16.2 H Plt Count 318 D MPV 9.7 Immature Gran % (Auto) 0.8 H Neut % (Auto) 87.1 H Lymph % (Auto) 6.9 L [place] % (Auto) 4.0 Eos % (Auto) 0.7 Baso % (Auto) 0.5 Lymph # (Auto) 1.3 [place] # (Auto) 0.8 Eos # (Auto) 0.1 Baso # (Auto) 0.1 Abs Immat Gran (auto) 0.16 H Absolute Neuts (auto) 16.8 H Absolute Nucleated RBC 0.000 Nucleated RBC % (auto) 0.0 Anion Gap 15 Estim Creat Clear Calc 32.2 Estimated GFR 27 Random Glucose 103 Lactic Acid 1.9 Calcium 9.0 D Total Bilirubin 0.3 AST 38 H ALT 10 Alkaline Phosphatase 129 H Total Protein 6.4 L Albumin 3.5 Urine Color Yellow Urine Appearance Turbid Urine pH 6.0 Ur Specific [place] >= 1.030 H Urine Protein 300 (3+) H Urine Glucose (UA) Negative Urine Ketones Trace Urine Blood Large (3+) H Urine Nitrite Negative Ur Leukocyte Esterase Large (3+) H Urine RBC 6-10 H Urine WBC >50 H Ur Squamous Epith Cells 3-5 Urine Bacteria 4+ Hyaline Casts 11-20 Influenza Type A (PCR) NEGATIVE Influenza Type B (PCR) NEGATIVE RSV RNA Qual (PCR) NEGATIVE SARS-CoV-2 RNA (RT-PCR) NEGATIVE 10/26/25 18:56 MCV MCH MCHC RDW Plt Count MPV Immature Gran % (Auto) Neut % (Auto) Lymph % (Auto) [place] % (Auto) Eos % (Auto) Baso % (Auto) Lymph # (Auto) [place] # (Auto) Eos # (Auto) Baso # (Auto) Abs Immat Gran (auto) Absolute Neuts (auto) Absolute Nucleated RBC Nucleated RBC % (auto) Anion Gap Estim Creat Clear Calc Estimated GFR Random Glucose Lactic Acid Calcium Total Bilirubin AST ALT Alkaline Phosphatase Total Protein Albumin Urine Color Yellow Urine Appearance Cloudy Urine pH 5.5 Ur Specific [place] >= 1.030 H Urine Protein 100 (2+) H Urine Glucose (UA) Negative Urine Ketones Trace Urine Blood Large (3+) H Urine Nitrite Negative Ur Leukocyte Esterase Moderate (2+) H Urine RBC 3-5 H Urine WBC 21-50 Ur Squamous Epith Cells 3-5 Urine Bacteria 4+ Hyaline Casts 3-5 Influenza Type A (PCR) Influenza Type B (PCR) RSV RNA Qual (PCR) SARS-CoV-2 RNA (RT-PCR) Assessment and Plan (1) Acute UTI: Status: Acute Plan 65-year-old female with a past medical history of HTN, HLD, CKD, history of DVT- on Eliquis, endometrial adenocarcinoma with metastasis, anemia, recent admission to the hospital for pneumonia status post antibiotic therapy; presented to the hospital today with a chief complaint of generalized weakness. Noted to have UTI. UTI: Continue ceftriaxone. Follow up cultures. Endometrial adenocarcinoma with metastasis: Oncology follow-up Abnormal CT of the chest: Pulmonology consult for further input Uterine bleeding: Patient was told by her oncologist to hold the Eliquis for now. Serial H&H. CKD: Creatinine currently around her baseline. DVT prophylaxis: SCD boots Code status: Full code Quality Stroke Does the patient have a stroke diagnosis?: No VTE Prior VTE?: No VTE Risk Level:: Medical - moderate - high VTE Device Contraindication: Treatment Not Indicated VTE Drug Contraindication: N/A - Med Ordered
[2025-10-27 04:08] LABS: Hematocrit 31.3 % (37.0-47.0); Hemoglobin 9.6 g/dl (12.0-16.0); Imm Gran Abs Auto 0.11 X10*3/uL (0.00-0.03); Imm Gran Pct Auto 0.6 % (0.0-0.4); Lymphocytes Absolute Auto 1.5 X10*3/uL (1.2-4.9); MANUAL DIFF FLAG NO; Mean Corpuscular HGB Conc 30.7 g/dl (31.0-35.0); Mean Corpuscular Hemoglobin 22.8 pg (27.0-33.0); Mean Corpuscular Volume 74.3 fL (80.0-98.0); NRBC Abs Auto 0.000 X10*3/uL (0.0-0.012); NRBC Pct Auto 0.0 /100WBC (0.0-0.2); Platelet Count 280 X10*3/uL (160-400); Red Blood Count 4.21 X10*6/uL (4.20-5.50); White Blood Count 17.9 X10*3/uL (4.8-10.8)
[2025-10-27 04:25] VITALS: BP 178/85; PULSE 76; TEMP 35.7; O2SAT 96
[2025-10-27 04:25] LABS: Alanine Aminotransferase 10 U/L (0-31); Albumin Level 3.2 g/dL (3.5-5.0); Alkaline Phosphatase 101 U/L (39-117); Anion Gap 15 (12-20); Aspartate Amino Transferase 35 U/L (5-31); Blood Urea Nitrogen 32 mg/dL (9-16); Calcium 8.3 mg/dL (8.4-10.2); Carbon Dioxide 20 mmol/L (22-29); Chloride 108 mmol/L (96-108); Creatinine Clr Calc Pharmacy 31.4; Estimated Glomerular Filt Rate 26; Potassium 3.5 mmol/L (3.3-5.1); Sodium 139 mmol/L (135-145); Total Protein 5.9 g/dL (6.5-8.0)
[2025-10-27 04:31] VITALS: TEMP 37.2
--- NOTE | 2025-10-27 06:42 | HO.NURTONUR ---
Chief Complaint: gen weakness 65-year-old female, full code, allergies to amoxicillin, codeine, penecillins, clonidine, valsartan, acetaminophen, with a past medical history of HTN, HLD, CKD, history of DVT-on Eliquis, endometrial adenocarcinoma with metastasis, anemia, recent admission to the hospital for pneumonia status post antibiotic therapy; presented to the hospital today with a chief complaint of generalized weakness. Patient reports over the past couple days she has increased bleeding. Has a decreased appetite. Feeling generally weak and tired. Imaging: Abdominal CT : Cholelithiasis. Large right retroperitoneal mass similar in size to previous. Indeterminate uterine mass versus masses similar to previous. Mild bladder wall thickening may relate to incomplete distention although cystitis is a possibility. Additional findings as above. Chest CTA: Impression: No acute PE is identified. Small web in the right interlobar pulmonary artery. Indeterminate parenchymal opacity right mid lung. Neoplasm should be excluded. Scattered irregular densities right upper lobe technically indeterminate. Possible air trapping in the lungs. Labs: UA showed UTI Plan: UTI: Continue ceftriaxone. Follow up cultures. Oncology follow-up Pulmonology consult for further input Uterine bleeding: Patient was told by her oncologist to hold the Eliquis for now. Serial H&H. Access: Bilateral 20g IV to both AC's
--- NOTE | 2025-10-27 07:31 | PC.NURSE ---
pt home medication brought to pharmacy at this time
[2025-10-27 08:00] VITALS: BP 116/81; PULSE 113; RESP 16; TEMP 36.1; O2SAT 98
--- NOTE | 2025-10-27 08:17 | PHA.MEDREC ---
Addendum entered by Raad Lr RPh 10/27/25 08:27: Reviewed by [facility] Original Note: Pharmacy Consult ? Medication Reconciliation Pharmacy has completed the medication reconciliation. Spoke with pt and she confirmed her medications. Pt recently prescribed Doxycycline but did not take that due to a previous reaction she had while taking another regimen.
--- NOTE | 2025-10-27 09:13 | HO.PM.IMPN ---
Subjective Subjective Date of Service: 10/27/25 Review of Systems Follow up UTI, weakness Physical Exam Exam: Exam: Appearing in no acute distress lung sounds are clear to auscultation heart regular rate rhythm, clear S1, S2 positive bowel sounds, abdomen is soft, nontender neuro patient is alert x3, no focal deficits Nephrostomy Vital Signs: Vital Signs: Last Vital Signs Temp 98.9 F 10/27/25 04:31 Pulse 76 10/27/25 04:25 Resp 23 H 10/26/25 20:33 BP 178/85 H 10/27/25 04:25 Pulse Ox 96 10/27/25 04:25 O2 Del Method Room Air 10/27/25 04:25 BMI result Body Mass Index 32.4 Objective Data Active Medications Albuterol/Ipratropium (Albuterol/Iprat 2.5/0.5mg 3 Ml Ampul.Neb) 3 ml INHALE Q4H PRN PRN Reason: Shortness of Breath/Wheezing Benzonatate (Benzonatate 100 Mg Capsule) 100 mg PO TID PRN PRN Reason: Cough Calcium Carbonate (Calcium Carbonate 750 Mg Tab.Chew) 750 mg PO Q4H PRN PRN Reason: Heartburn Ceftriaxone Sodium 1 gm/ (Sodium Chloride) 50 mls @ 100 mls/hr IV Q24H [facility] Magnesium Hydroxide (Milk Of Magnesia 30 Ml Oral.Susp) 30 ml PO DAILY PRN PRN Reason: Constipation Melatonin (Melatonin 3 Mg Tablet) 6 mg PO BEDTIME PRN PRN Reason: Insomnia Sodium Chloride (0.9 % Sodium Chloride Flush 3 Ml Syringe) 3 ml IVFLUSH QSHIFT [facility] Last Admin: 10/27/25 00:00 Dose: 3 ml Documented By: MEL Labs 10/27/25 03:34 10/27/25 03:34 Labs: Laboratory Results - last 24 hr 10/26/25 10/26/25 10/26/25 14:59 16:58 18:54 MCV 73.8 L MCH 22.9 L MCHC 31.1 RDW 16.2 H Plt Count 318 D MPV 9.7 Immature Gran % (Auto) 0.8 H Neut % (Auto) 87.1 H Lymph % (Auto) 6.9 L [place] % (Auto) 4.0 Eos % (Auto) 0.7 Baso % (Auto) 0.5 Lymph # (Auto) 1.3 [place] # (Auto) 0.8 Eos # (Auto) 0.1 Baso # (Auto) 0.1 Abs Immat Gran (auto) 0.16 H Absolute Neuts (auto) 16.8 H Absolute Nucleated RBC 0.000 Nucleated RBC % (auto) 0.0 Anion Gap 15 Estim Creat Clear Calc 32.2 Estimated GFR 27 Random Glucose 103 Lactic Acid 1.9 Calcium 9.0 D Total Bilirubin 0.3 AST 38 H ALT 10 Alkaline Phosphatase 129 H Total Protein 6.4 L Albumin 3.5 Urine Color Yellow Urine Appearance Turbid Urine pH 6.0 Ur Specific [place] >= 1.030 H Urine Protein 300 (3+) H Urine Glucose (UA) Negative Urine Ketones Trace Urine Blood Large (3+) H Urine Nitrite Negative Ur Leukocyte Esterase Large (3+) H Urine RBC 6-10 H Urine WBC >50 H Ur Squamous Epith Cells 3-5 Urine Bacteria 4+ Hyaline Casts 11-20 Influenza Type A (PCR) NEGATIVE Influenza Type B (PCR) NEGATIVE RSV RNA Qual (PCR) NEGATIVE SARS-CoV-2 RNA (RT-PCR) NEGATIVE 10/26/25 10/27/25 18:56 03:34 MCV 74.3 L MCH 22.8 L MCHC 30.7 L RDW 16.1 H Plt Count 280 MPV 9.7 Immature Gran % (Auto) 0.6 H Neut % (Auto) 83.5 H Lymph % (Auto) 8.6 L [place] % (Auto) 5.1 Eos % (Auto) 1.6 Baso % (Auto) 0.6 Lymph # (Auto) 1.5 [place] # (Auto) 0.9 Eos # (Auto) 0.3 Baso # (Auto) 0.1 Abs Immat Gran (auto) 0.11 H Absolute Neuts (auto) 15.0 H Absolute Nucleated RBC 0.000 Nucleated RBC % (auto) 0.0 Anion Gap 15 Estim Creat Clear Calc 31.4 Estimated GFR 26 Random Glucose 105 Lactic Acid Calcium 8.3 L D Total Bilirubin 0.2 AST 35 H ALT 10 Alkaline Phosphatase 101 Total Protein 5.9 L Albumin 3.2 L Urine Color Yellow Urine Appearance Cloudy Urine pH 5.5 Ur Specific [place] >= 1.030 H Urine Protein 100 (2+) H Urine Glucose (UA) Negative Urine Ketones Trace Urine Blood Large (3+) H Urine Nitrite Negative Ur Leukocyte Esterase Moderate (2+) H Urine RBC 3-5 H Urine WBC 21-50 Ur Squamous Epith Cells 3-5 Urine Bacteria 4+ Hyaline Casts 3-5 Influenza Type A (PCR) Influenza Type B (PCR) RSV RNA Qual (PCR) SARS-CoV-2 RNA (RT-PCR) Assessment and Plan (1) Acute UTI: Status: Acute Plan 65-year-old female with a past medical history of HTN, HLD, CKD, history of DVT-on Eliquis, endometrial adenocarcinoma with metastasis, anemia, recent admission to the hospital for pneumonia status post antibiotic therapy; presented to the hospital today with a chief complaint of generalized weakness. Noted to have UTI. UTI Nephrostomy tube Continue ceftriaxone. Follow up cultures. Endometrial adenocarcinoma with metastasis Oncology follow-up Abnormal CT of the chest Pulmonology consult for further input>continue abx for now Uterine bleeding Patient was told by her oncologist to hold the Eliquis for now. Serial H&H. CKD Creatinine currently around her baseline. DVT prophylaxis: SCD boots Code status: Full code Quality Stroke Does the patient have a stroke diagnosis?: No VTE Prior VTE?: No VTE Risk Level:: Medical - moderate - high VTE Device Contraindication: Treatment Not Indicated VTE Drug Contraindication: N/A - Med Ordered
--- NOTE | 2025-10-27 09:13 | PM.CNPUL ---
History of Present Illness History of Present Illness Consult date: 10/27/25 Chief complaint: UTI Narrative: This is an inpatient pulmonary consultation. The patient is a 65-year-old female with a past medical history of HTN, HLD, CKD, history of DVT-on Eliquis, endometrial adenocarcinoma with metastasis, anemia, recent admission to the hospital for pneumonia status post antibiotic therapy; presented to the hospital today with a chief complaint of generalized weakness. The patient did have a CT scan of the chest which I personally reviewed. Appears to have a irregular nodular density in the right hemithorax. I also did review the CT scan from 10/12/2025 with this density was not as obvious. Therefore some degree of progression. She had been given antibiotics during her last admission but she could not tolerate the doxycycline in or the Flagyl. Therefore she stopped it after 4-5 days. She does have UTI at this time. She is going to start antibiotics for that. As far as his nodular density could be related to metastatic disease. Although seems very quick progression when compared to her recent CT scan of the chest. Therefore need to consider inflammatory infectious etiologies. Septic emboli resulting in a shower room attendant spreading infection is also in differential. Review of Systems Constitutional: Constitutional: Reports no additional constitutional complaints and Reports weakness Cardiovascular: Cardiovascular: Reports no additional cardiovascular complaints Respiratory: Respiratory: Reports no additional respiratory complaints and Denies wheezing Gastrointestinal: Gastrointestinal: Reports no additional gastrointestinal complaints Genitourinary: Genitourinary: Reports as per HPI Musculoskeletal: Musculoskeletal: Reports no additional musculoskeletal complaints Neurologic: Reports system reviewed and no additional complaints, except as documented and Reports weakness Hematologic/Lymphatic: Hematologic/Lymphatic: Reports easy bleeding Allergic/Immunologic: Allergic/Immunologic: Denies wheezing [facility] Past Medical History Medical History (Updated 10/27/25 @ 09:18 by Chuck Eaton MD) Pulmonary nodule Mass of uterus Pneumonia Acute deep vein thrombosis (DVT) of femoral vein of right lower extremity 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 If so, by whom?: No Do you feel safe in your current relationship?: No Current Relationship Is there a partner from a previous relationship who is making you feel unsafe now?: No Are you made to feel afraid or neglected: No Advance Directives: Yes Advance Directives on File: Yes Advance Directives Date on File: 09/28/25 Do you have a plan to hurt others: No Plan Recently lost weight without trying: Yes How much weight loss: 24-33 pounds Nutrition Risks: No Nutritional Risk Patient : No : No Poor oral hygiene: No Current occupational status: retired Cognitive needs: Yes (Walker) Hearing needs: No Vision needs: Yes (Glasses) Meds Allergies Allergy/AdvReac Type Severity Reaction Status Date / Time amoxicillin Allergy Intermediate Unknown Verified 10/26/25 13:46 codeine (CODEINE) Allergy Intermediate UNKNOWN Verified 10/26/25 13:46 Penicillins (PENICILLINS) Allergy Intermediate UNKNOWN Verified 10/26/25 13:46 clonidine Allergy Unknown tongue/facial Verified 10/26/25 13:46 swelling terazosin (TERAZOSIN) Allergy Unknown UNKNOWN, Verified 10/26/25 13:46 leg pain ? swelling valsartan (VALSARTAN) Allergy Unknown UNKNOWN, Verified 10/26/25 13:46 edema acetaminophen (Percocet) AdvReac Unknown N/V Verified 10/26/25 13:46 amlodipine AdvReac Unknown Difficulty Verified 10/26/25 13:46 Breathing oxycodone (Percocet) AdvReac Unknown N/V Verified 10/26/25 13:46 penicillin V AdvReac Unknown N/V Verified 10/26/25 13:46 Codeine Sulfate AdvReac Unknown N/V Uncoded 10/12/25 11:51 Active Medications: Current Medications Albuterol/Ipratropium (Albuterol/Iprat 2.5/0.5mg 3 Ml Ampul.Neb) 3 ml INHALE Q4H PRN PRN Reason: Shortness of Breath/Wheezing Benzonatate (Benzonatate 100 Mg Capsule) 100 mg PO TID PRN PRN Reason: Cough Calcium Carbonate (Calcium Carbonate 750 Mg Tab.Chew) 750 mg PO Q4H PRN PRN Reason: Heartburn Ceftriaxone Sodium 1 gm/ (Sodium Chloride) 50 mls @ 100 mls/hr IV Q24H [facility] Magnesium Hydroxide (Milk Of Magnesia 30 Ml Oral.Susp) 30 ml PO DAILY PRN PRN Reason: Constipation Melatonin (Melatonin 3 Mg Tablet) 6 mg PO BEDTIME PRN PRN Reason: Insomnia Sodium Chloride (0.9 % Sodium Chloride Flush 3 Ml Syringe) 3 ml IVFLUSH QSHIFT [facility] Last Admin: 10/27/25 00:00 Dose: 3 ml Physical Exam Exam: Exam: Appearing in no acute distress lung sounds are clear to auscultation heart regular rate rhythm, clear S1, S2 positive bowel sounds, abdomen is soft, nontender neuro patient is alert x3, no focal deficits Nephrostomy Vital Signs: Vital Signs: Last Vital Signs Temp 98.9 F 10/27/25 04:31 Pulse 76 10/27/25 04:25 Resp 23 H 10/26/25 20:33 BP 178/85 H 10/27/25 04:25 Pulse Ox 96 10/27/25 04:25 O2 Del Method Room Air 10/27/25 04:25 BMI result Body Mass Index 32.4 Results Laboratory Findings 10/27/25 03:34 10/27/25 03:34 Abnormal lab findings: Abnormal Labs 10/26/25 10/26/25 10/26/25 14:59 18:54 18:56 WBC 19.2 H Hgb 10.5 L Hct 33.8 L MCV 73.8 L MCH 22.9 L MCHC RDW 16.2 H Immature Gran % (Auto) 0.8 H Neut % (Auto) 87.1 H Lymph % (Auto) 6.9 L Abs Immat Gran (auto) 0.16 H Absolute Neuts (auto) 16.8 H Carbon Dioxide BUN 27 H Creatinine 1.86 H Calcium AST 38 H Alkaline Phosphatase 129 H Total Protein 6.4 L Albumin Ur Specific [place] >= 1.030 H >= 1.030 H Urine Protein 300 (3+) H 100 (2+) H Urine Blood Large (3+) H Large (3+) H Ur Leukocyte Esterase Large (3+) H Moderate (2+) H Urine RBC 6-10 H 3-5 H Urine WBC >50 H 10/27/25 03:34 WBC 17.9 H Hgb 9.6 L Hct 31.3 L MCV 74.3 L MCH 22.8 L MCHC 30.7 L RDW 16.1 H Immature Gran % (Auto) 0.6 H Neut % (Auto) 83.5 H Lymph % (Auto) 8.6 L Abs Immat Gran (auto) 0.11 H Absolute Neuts (auto) 15.0 H Carbon Dioxide 20 L BUN 32 H Creatinine 1.91 H Calcium 8.3 L D AST 35 H Alkaline Phosphatase Total Protein 5.9 L Albumin 3.2 L Ur Specific [place] Urine Protein Urine Blood Ur Leukocyte Esterase Urine RBC Urine WBC Assessment and Plan (1) Endometrial adenocarcinoma: Status: Acute (2) Pulmonary nodule: Status: Acute (3) Acute UTI: Status: Acute (4) General weakness: Status: Acute Plan Broad spectrum abx Blood cultures ECHO to r/o endocarditis Bloodwork Will need serial imaging f/u Procedures Date of Service Date of Service: 10/27/25
--- NOTE | 2025-10-27 09:50 | MHC.CM.PN ---
CM met with Patient and addressed IMM with her. Patient lives alone in an apartment and uses a walker. Home self care is Patient's goal and CM has initiated and will follow for dc planning. PCP is Dr. Betito Davison and Sister/HCP/Melanie will transport to home at dc.
[2025-10-27 10:42] VITALS: BMI 33.4
--- NOTE | 2025-10-27 10:44 | MHC.CM.PN ---
Per Patient's request, a referral has been made to [facility] for assist with completion of a [facility].
[2025-10-27 10:52] LABS: Erythrocyte Sedimentation Rate 74 MM/HR (0-20)
--- NOTE | 2025-10-27 12:10 | P.CNHO_ITS ---
Subjective - Subjective Chief complaint: Failure to thrive, progressive weakness Patient: known to practice within the last 3 years Consult date: 10/27/25 Primary Care Provider: Meg Davison MD State Wildlife Officer Utilized?: No - Bahamian Speaking HPI - Consult Narrative Reason for consult: Metastatic uterine cancer Narrative: Deonna Bloom is a 65 year old female who has been diagnosed with widely metastatic uterine cancer in September 2025. She was also diagnosed with right lower extremity DVT in has been on Eliquis. She says she has had intermittent vaginal bleeding for many months but since starting Eliquis this has worsened. For the last few days she has been extremely weak and is unable to get out of bed. She had an appointment with Oncology yesterday but because she could not even move out of her bed, she had to call ambulance and get to the hospital. Patient lives alone and has a sister in [place] who is her next of kin. Her sister can not help her as she has busy with her own work. She stopped taking Eliquis a few days ago and noticed that the right leg swelling has gotten worse. She denies any chest pain but has chronic shortness of breath with any exertion. 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 How often do you have a drink containing alcohol?: a. Never 3. How often do you have six or more drinks on one occasion?: a. Never AUDIT-C Alcohol total score: 0 Currently Displaying Signs/Symptoms of Alcohol Withdrawal: No Tobacco History: Patient Tobacco Use Status: Never used Tobacco Tobacco use type: Cigarette e-Cigarette/Vaping Use: Never Used Second Hand Smoke Exposure: Yes Substance Use History: Currently Displaying Signs/Symptoms of Drug Intoxication Withdrawal: No Domestic Abuse History: Have you been hit, kicked, punched, or otherwise hurt by someone within the past year? If so, by whom?: No Do you feel safe in your current relationship?: No Current Relationship Is there a partner from a previous relationship who is making you feel unsafe now?: No Are you made to feel afraid or neglected: No Advance Directives: Advance Directives: Yes Advance Directives on File: Yes Advance Directives Date on File: 09/28/25 Homicidal Assessment: Do you have a plan to hurt others: No Plan Nutrition Assessment: Recently lost weight without trying: Yes How much weight loss: 24-33 pounds Nutrition Risks: No Nutritional Risk Patient : No : No Poor oral hygiene: No Occupation Assessmet: service: No Current occupational status: retired Home Medications and Allergies Current Medications: Current Medications Albuterol/Ipratropium (Albuterol/Iprat 2.5/0.5mg 3 Ml Ampul.Neb) 3 ml INHALE Q4H PRN PRN Reason: Shortness of Breath/Wheezing Benzonatate (Benzonatate 100 Mg Capsule) 100 mg PO TID PRN PRN Reason: Cough Calcium Carbonate (Calcium Carbonate 750 Mg Tab.Chew) 750 mg PO Q4H PRN PRN Reason: Heartburn Ceftriaxone Sodium 1 gm/ (Sodium Chloride) 50 mls @ 100 mls/hr IV Q24H [facility] Magnesium Hydroxide (Milk Of Magnesia 30 Ml Oral.Susp) 30 ml PO DAILY PRN PRN Reason: Constipation Melatonin (Melatonin 3 Mg Tablet) 6 mg PO BEDTIME PRN PRN Reason: Insomnia Sodium Chloride (0.9 % Sodium Chloride Flush 3 Ml Syringe) 3 ml IVFLUSH QSHIFT [facility] Last Admin: 10/27/25 11:27 Dose: Not Given Allergies Allergy/AdvReac Type Severity Reaction Status Date / Time amoxicillin Allergy Intermediate Unknown Verified 10/26/25 13:46 codeine (CODEINE) Allergy Intermediate UNKNOWN Verified 10/26/25 13:46 Penicillins (PENICILLINS) Allergy Intermediate UNKNOWN Verified 10/26/25 13:46 clonidine Allergy Unknown tongue/facial Verified 10/26/25 13:46 swelling terazosin (TERAZOSIN) Allergy Unknown UNKNOWN, Verified 10/26/25 13:46 leg pain ? swelling valsartan (VALSARTAN) Allergy Unknown UNKNOWN, Verified 10/26/25 13:46 edema acetaminophen (Percocet) AdvReac Unknown N/V Verified 10/26/25 13:46 amlodipine AdvReac Unknown Difficulty Verified 10/26/25 13:46 Breathing oxycodone (Percocet) AdvReac Unknown N/V Verified 10/26/25 13:46 penicillin V AdvReac Unknown N/V Verified 10/26/25 13:46 Codeine Sulfate AdvReac Unknown N/V Uncoded 10/12/25 11:51 Physical Exam Vital signs: Vital Signs Temp 97.0 F 10/27/25 08:00 Pulse 113 H 10/27/25 08:00 Resp 16 10/27/25 08:00 BP 116/81 10/27/25 08:00 Pulse Ox 98 10/27/25 08:00 O2 Del Method Room Air 10/27/25 08:00 Intake & Output 10/26/25 10/27/25 10/27/25 18:59 06:59 18:59 Intake Total 1050 / 1050 Balance 1050 / 1050 Intake: Intake, IV Amount 1050 / 1050 0.9 % Sodium Chloride 1,000 ml 1000 / 1000 @ 999 mls/hr IV .Q1H1M ONE Rx#: [id number] cefTRIAXone sodium 1 gm In 0.9 50 / 50 % Sodium Chloride 50 ml @ 100 mls/hr IV ONCE ONE Rx#: [id number] Other: Last Bowel Movement 10/27/25 Weight 88.451 kg 91 kg Weight 91 kg - Constitutional Present: mild distress, obese - Routine HEENT Exam Head: Present: normal inspection Eye: Present: conjunctivae pale - Routine Neck Exam Present: supple - Routine Respiratory Exam Absent: rhonchi, wheezes - Routine Cardiovascular Exam Cardiovascular: Present: S1, S2, tachycardia - Routine Extremities Exam Absent: pedal edema Hem/Onc Consult Result - Labs CBC & Chem 7: 10/27/25 03:34 10/27/25 03:34 Labs: Short CBC 10/26/25 10/27/25 Range/Units 14:59 03:34 WBC 19.2 H 17.9 H (4.8-10.8) X10*3/uL Hgb 10.5 L 9.6 L (12.0-16.0) g/dl Hct 33.8 L 31.3 L (37.0-47.0) % Plt Count 318 D 280 (160-400) X10*3/uL BMP 10/26/25 10/27/25 14:59 03:34 Sodium 139 139 Potassium 3.9 3.5 Chloride 106 108 Carbon Dioxide 22 20 L BUN 27 H 32 H Creatinine 1.86 H 1.91 H Calcium 9.0 D 8.3 L D Liver Function 10/26/25 10/27/25 Range/Units 14:59 03:34 Total Bilirubin 0.3 0.2 (0.0-1.0) mg/dL AST 38 H 35 H (5-31) U/L ALT 10 10 (0-31) U/L Alkaline Phosphatase 129 H 101 (39-117) U/L Albumin 3.5 3.2 L (3.5-5.0) g/dL Urine 10/26/25 10/26/25 Range/Units 18:54 18:56 Urine Color Yellow Yellow Urine Appearance Turbid Cloudy Urine pH 6.0 5.5 (5.0-9.0) Ur Specific [place] >= 1.030 H >= 1.030 H (1.005-1.025) Urine Protein 300 (3+) H 100 (2+) H (Neg-Trace) mg/dL Urine Glucose (UA) Negative Negative (Negative) mg/dL Assessment and Plan Patient Active problem list reviewed?: Yes (1) Endometrial adenocarcinoma Status: Acute Assessment and plan: 1. This is a 65-year-old woman with past medical history significant for hypertension and chronic renal failure who has been diagnosed with advanced endometrial cancer. She underwent CT-guided biopsy of right psoas muscle mass on 09/18/2025 which revealed poorly differentiated carcinoma with extensive necrosis, findings consistent with gynecological primary suggestive of solid endometrioid carcinoma. P 53 patchy wild-type staining pattern, MLH1 absent, MSH2 preserved, MSH6 preserved, PMS2 absent. Testing for MLH1 promoter methylation and reflex testing for BRAF V 600 mutation is underway. Immunostains showed tumor to be diffusely positive for ER and PAX8, focally positive for CK7 and P16, negative for CK20, MORENITA 3, CDX2 and P 40. Pt presented with large cystic mass involving right psoas muscle which encases right proximal external iliac artery and vein, extensive right lower extremity DVT. Multiple and large right external iliac lymph nodes and partially necrotic masses within the uterus read as possible primary endometrial neoplasm versus necrotic fibroids. The right psoas mass measures 7.9 x 8.2 x 11 cm and external iliac lymph node measures 1.2 x 1 cm. Patient has had right nephrostomy tube placed on 09/17/2025 for right hydronephrosis. She was seen by wide area network administrator Oncology at [facility] who have said that patient is not a surgical candidate. Palliative chemo/immunotherapy has been recommended. Patient was scheduled to start treatment tomorrow in Oncology. However [place] [facility] [place] because of progressive weakness and inability to get out of bed. She also reports increased vaginal bleeding since starting Eliquis for right leg DVT. She now feels that she would not be able to tolerate any systemic therapy such as chemotherapy for her cancer. She is not able to take care of herself at home and would like to be transferred to assisted living facility. She would like to engage with hospice/palliative team to discuss goals of care. She wishes to be DNR/DNI. Thank you for the consultation. Please call if any further assistance is required in her care. - Time Spent With Patient Time Spent with Patient (in minutes): 25
[2025-10-27 14:29] VITALS: BP 153/79; PULSE 104; RESP 18; TEMP 36.7; O2SAT 98
[2025-10-27] MEDS: 0.9 % Sodium Chloride Flush 3 ML SYRINGE IVFLUSH ×2 (14:35)
--- NOTE | 2025-10-27 15:13 | MHC.CM.PN ---
CM met with Patient to discuss PT's recommendation for STR; she is agreeable to a local SNF search([facility]). Patient expressed some interest in Hospice and a referral was made today to [facility] [place] in order to have a payer for room and board in a SNF, under Hospice, in the future. CM will continue to follow.
[2025-10-27 19:42] VITALS: BP 129/70; PULSE 86; RESP 17; TEMP 36.7; O2SAT 94
[2025-10-27 23:26] VITALS: BP 135/66; PULSE 84; RESP 18; TEMP 36.3; O2SAT 95
[2025-10-28 03:48] VITALS: BP 140/66; PULSE 91; RESP 18; TEMP 36.2; O2SAT 96
--- NOTE | 2025-10-28 07:00 | CA_ITS ---
Transthoracic Echocardiogram Patient (Last, First, Middle): Deonna Bloom, Gender: F Date of : 1960 Age: 65 Procedure Date: 10/28/2025 Procedure Type: Transthoracic [place] [facility] [place]: 165.1 cm Weight: 90.72 kg BSA: 1.98 m2 Heart Rate: 104 bpm BP: 116 / 81 mmHg Flight Teacher: SB Referring MD: Chuck Eaton MD Symptoms: ?septic emboli Study Quality: Adequate ECG Rhythm: Sinus with PACs Conclusions: - The left ventricular systolic function is low normal. The calculated ejection fraction is 53% by biplane method. - The basal inferior segment is akinetic. - The mid inferior segment is hypokinetic. - No obvious valvular pathology seen on this study. - Moderate pulmonary hypertension is present. Findings Left Ventricle Normal left ventricular cavity size. There is mildly increased left ventricular wall thickness. The left ventricular systolic function is low normal. The calculated ejection fraction is 53% by biplane method. Diastolic function is normal for age. Wall Motion Rest Echo Findings The mid inferior segment is hypokinetic. The basal inferior segment is akinetic. Right Ventricle Normal right ventricular cavity size and systolic function. Atria Both atria are normal in size. Aortic Valve There is a normal trileaflet aortic valve. There is no aortic valve stenosis. There is no aortic valve regurgitation. Mitral Valve The mitral valve appears normal. There is trace mitral valve regurgitation. There is no mitral valve stenosis. Pulmonic Valve The pulmonic valve is likely normal. Tricuspid Valve There is trace tricuspid valve regurgitation. The right ventricular systolic pressure is 61 mmHg. Moderate pulmonary hypertension is present. Great Vessels The asc aorta is normal in size. Venous The inferior vena cava is normal in size and collapses less than 50% with inspiration. Pericardium/Pleural There is no evidence of pericardial effusion. Prior Study Comparison No prior study available for comparison. Recommendations, Care & Conclusions No obvious valvular pathology seen on this study. Measurements 2D Linear Measurements IVSd: 1.16 0.6-0.9/0.6-1.0 cm LVIDd: 4.35 3.9-5.3/4.2-5.9 cm LVIDd Index: 2.20 2.4-3.2/2.2-3.1 cm/m2 LVIDs: 2.72 2.0-3.6 cm LVPWd: 1.15 0.7-1.1 cm LA Diam: 4.30 2.7-3.8/3.0-4.0 cm LAIDs Index: 2.17 1.5-2.3 cm/m2 LV Mass: 221.62 67-162/88-224 g LV Mass Index: 111.93 43-95/49-115 g/m2 LVOT Diam: 2.00 3.0+(-)1.3 cm 2D Systolic Function EF 4C: 56.00 >55% EF 2C: 48.50 >55% EF BiP: 52.90 >55% Mitral Valve MV Pk E: 0.81 MV PK A: 0.72 MV Decel Time: 173.00 E/A: 1.10 E'Lateral: 10.10 E'Medial: 6.85 E/E' Med: 11.80 E/E' Lat: 8.00 PHT: 51.00 MVA PHT: 4.31 Decel [place]: 4.66 Aortic Valve AoV Pk [place]: 1.17 AoV Pk Grad: 5.00 SAM: 2.27 LVOT LVOT Pk [place]: 0.84 LVOT Mn [place]: 0.59 LVOT VTI: 0.16 LVOT Pk Grad: 3.00 LVOT Mn Grad: 2.00 LVOT Diam: 2.00 LVOT Area: 3.14 Diastolic Function MV Pk E: 0.81 MV Pk A: 0.72 E/A: 1.10 E'Medial: 6.85 E/E' Med: 11.80 E' Laterial: 10.10 E/E' Lat: 8.00 Right Ventricle TAPSE (mm): 16.90 TVS' [place]: 11.30 Tricuspid Valve TR Pk [place]: 3.64 TR Pk Grad: 53.00 RA Press: 8.00 RVSP: 61.00 Great Vessels Aorta Sinus of Valsalva: 3.30 2.0-3.5 cm Ao Asc: 3.20 2.1-3.4 cm Pulmonary Valve PV Pk [place]: 0.80 Peak PV Grad: 3.00 Updated in Other Vendor System with Status of Final Zenon Troy MD electronically signed on 10/28/2025 11:50:57 AM with status of Final
[2025-10-28 07:48] VITALS: BP 165/77; PULSE 86; RESP 18; TEMP 36.4; O2SAT 97
[2025-10-28 08:49] LABS: Hematocrit 29.9 % (37.0-47.0); Hemoglobin 9.1 g/dl (12.0-16.0); Mean Corpuscular HGB Conc 30.4 g/dl (31.0-35.0); Mean Corpuscular Hemoglobin 22.6 pg (27.0-33.0); Mean Corpuscular Volume 74.2 fL (80.0-98.0); NRBC Abs Auto 0.000 X10*3/uL (0.0-0.012); NRBC Pct Auto 0.0 /100WBC (0.0-0.2); Platelet Count 254 X10*3/uL (160-400); Red Blood Count 4.03 X10*6/uL (4.20-5.50); White Blood Count 17.4 X10*3/uL (4.8-10.8)
[2025-10-28 08:59] LABS: Anion Gap 15 (12-20); Blood Urea Nitrogen 28 mg/dL (9-16); Calcium 8.1 mg/dL (8.4-10.2); Carbon Dioxide 20 mmol/L (22-29); Chloride 109 mmol/L (96-108); Creatinine Clr Calc Pharmacy 34.8; Estimated Glomerular Filt Rate 29; Potassium 3.6 mmol/L (3.3-5.1); Sodium 140 mmol/L (135-145)
[2025-10-28] MEDS: 0.9 % Sodium Chloride Flush 3 ML SYRINGE IVFLUSH ×3 (10:32→20:12)
--- NOTE | 2025-10-28 10:47 | MHC.CM.PN ---
Per [facility], Patient is not yet medically cleared for dc (continue to treat for UTI); PT is recommending STR and CM will continue to follow.
--- NOTE | 2025-10-28 14:15 | HO.PM.IMPN ---
Subjective Subjective Date of Service: 10/28/25 Interval History: Patient seen and examined at bedside this morning, patient states that she is feeling better, WBC 17.9, currently being treated for UTI. Review of Systems General: AxOx3, No acute distress, ill appearing Head: AT/NC ENT: Moist mucous membranes Neck: supple CVS; RRR, S1 S2 normal Lungs: Clear bilateral breath sounds, no wheezes or crackles Abd: Soft non tender, non distended Ext: No edema and no calf tenderness MSK: moving all 4 limbs Skin: No cyanosis or edema, nephrostomy tube in place Psych: Cooperative with exam Neurology: no focal deficit Physical Exam Vital Signs: Vital Signs: Last Vital Signs Temp 97.6 F 10/28/25 07:48 Pulse 86 10/28/25 07:48 Resp 18 10/28/25 07:48 BP 165/77 H 10/28/25 07:48 Pulse Ox 97 10/28/25 07:48 O2 Del Method Room Air 10/28/25 07:48 BMI result Body Mass Index 33.4 Objective Data Active Medications Acetaminophen (Acetaminophen 325 Mg Tablet) 650 mg PO Q6H PRN PRN Reason: Pain, Mild (Pain Scale 1-3) Albuterol/Ipratropium (Albuterol/Iprat 2.5/0.5mg 3 Ml Ampul.Neb) 3 ml INHALE Q4H PRN PRN Reason: Shortness of Breath/Wheezing Apixaban (Apixaban 5 Mg Tablet) 5 mg PO BID [facility] Last Admin: 10/28/25 10:32 Dose: 5 mg Documented By: ESAU Benzonatate (Benzonatate 100 Mg Capsule) 100 mg PO TID PRN PRN Reason: Cough Calcium Carbonate (Calcium Carbonate 750 Mg Tab.Chew) 750 mg PO Q4H PRN PRN Reason: Heartburn Ceftriaxone Sodium 1 gm/ (Sodium Chloride) 50 mls @ 100 mls/hr IV Q24H [facility] Last Infusion: 10/27/25 21:09 Dose: Infused Documented By: ALFONZO Labetalol HCl (Labetalol Hcl 100 Mg Tablet) 300 mg PO BID [facility]; Protocol Last Admin: 10/28/25 10:30 Dose: 300 mg Documented By: ESAU Magnesium Hydroxide (Milk Of Magnesia 30 Ml Oral.Susp) 30 ml PO DAILY PRN PRN Reason: Constipation Melatonin (Melatonin 3 Mg Tablet) 6 mg PO BEDTIME PRN PRN Reason: Insomnia Sodium Chloride (0.9 % Sodium Chloride Flush 3 Ml Syringe) 3 ml IVFLUSH QSHIFT [facility] Last Admin: 10/28/25 10:32 Dose: 3 ml Documented By: ESAU Labs 10/28/25 08:30 10/28/25 08:31 Labs: Laboratory Results - last 24 hr 10/28/25 10/28/25 08:30 08:31 MCV 74.2 L MCH 22.6 L MCHC 30.4 L RDW 16.5 H Plt Count 254 MPV 9.7 Absolute Nucleated RBC 0.000 Nucleated RBC % (auto) 0.0 Anion Gap 15 Estim Creat Clear Calc 34.8 Estimated GFR 29 Random Glucose 101 Calcium 8.1 L Microbiology Microbiology Results: Microbiology 10/26/25 Unknown Urine Culture - Final Urine clean catch - Clean Catch Midstream 10/26/25 17:06 Blood Culture - Preliminary Blood - Venous No growth after 24 hours. 10/26/25 16:58 Blood Culture - Preliminary Blood - Venous No growth after 24 hours. 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 Noted to have UTI. UTI with Nephrostomy tube in place Continue ceftriaxone. Follow up cultures, will adjust ab based on this. Endometrial adenocarcinoma with metastasis Immunodeficiency secondary to cancer Per oncology, patient was scheduled to start oncology treatment today, however unable to due to progressive weakness and inability. OBGYN Oncology at [facility] mentioned that patient was not a surgical candidate, suggested on palliative chemo/immunotherapy. Patient this time felt that any systemic therapy such as chemotherapy for cancer would not be able to be tolerated, wished to speak with hospice/palliative team to discuss goals of care Hospice team consulted Abnormal CT of the chest Pulmonology consult for further input>continue abx for now Uterine bleeding Patient was told by her oncologist to hold the Eliquis for now. Serial H&H. CKD Creatinine currently around her baseline. DVT prophylaxis: SCD boots Code status: Full code Total time managing care of this patient today: 35 minutes. Quality Stroke Does the patient have a stroke diagnosis?: No VTE Prior VTE?: No VTE Risk Level:: Medical - moderate - high VTE Device Contraindication: Treatment Not Indicated VTE Drug Contraindication: N/A - Med Ordered
[2025-10-28 14:35] VITALS: BP 160/71; PULSE 95; RESP 16; TEMP 36.2; O2SAT 97
[2025-10-28 15:13] VITALS: BP 136/73; PULSE 95; RESP 16; TEMP 36.2; O2SAT 97
[2025-10-28 19:14] VITALS: BP 160/82; PULSE 90; RESP 21; TEMP 36.6; O2SAT 97
[2025-10-28 22:08] LABS: Proteinase 3 PR3 Antibodies <1.0 AI
[2025-10-29 03:59] VITALS: BP 156/71; PULSE 85; RESP 16; TEMP 35.7; O2SAT 98
[2025-10-29 07:34] VITALS: BP 162/89; PULSE 87; RESP 16; TEMP 36.6; O2SAT 100
[2025-10-29] MEDS: 0.9 % Sodium Chloride Flush 3 ML SYRINGE IVFLUSH ×3 (08:11→19:42)
--- NOTE | 2025-10-29 10:33 | P.CDIM_ITS ---
PROVIDER RESPONSE TEXT: To clarify, the appropriate diagnosis supported by the clinical indicators: CKD, please provide stage: G4 QUERY TEXT: PHYSICIAN'S DOCUMENTATION REQUEST Date of Query: 10/29/2025 08:10 AM EST Patient Name: Deonna Bloom Admit Date: 10/27/2025 Dear Derick Nesbitt MD, A review of the medical record indicates additional documentation may be needed. Please review below and update the documentation accordingly. Clinical Indicators: Progress notes and H7P - CKD, creatinine currently around her baseline. Cr: 1.91 Bun: 32 Gfr: Please clarify which of the following accurately represents the stage of the documented CKD: CKD, please provide stage 1, 2, 3a, 3b, 4, other ESRD - CKD V now requiring permanent dialysis and/or transplant Other (explain) Clinically unable to determine (explain) Thank you, Sheron Garsia, CCS, CDIS Use of terms such as suspected, likely, concern for, or probable (associated with a specific diagnosis that is being evaluated, monitored, or treated as if it exists) are acceptable and can be coded in the inpatient setting, when documented at the time of discharge. Please use your independent medical judgment in providing your response. THIS QUERY IS PART OF THE PERMANENT MEDICAL RECORD
--- NOTE | 2025-10-29 14:42 | HO.PM.IMPN ---
Subjective Subjective Date of Service: 10/29/25 Interval History: Patient seen examined at bedside this morning, had goals of care conversation with patient, states that she wishes to be DNR DNI, wishes to go to rehab and if unable to, to transition to palliative care/hospice. Patient's creatinine improving at this time. Review of Systems Review of Systems: Yes all other systems are reviewed and are negative Physical Exam Exam: Exam: General: AxOx3, No acute distress, ill-appearing Head: AT/NC ENT: Moist mucous membranes Neck: supple CVS; RRR, S1 S2 normal Lungs: Clear bilateral breath sounds, no wheezes or crackles Abd: Soft non tender, non distended Ext: Right lower extremity edema MSK: moving all 4 limbs Skin: No cyanosis Psych: Cooperative with exam Neurology: no focal deficit Vital Signs: Vital Signs: Last Vital Signs Temp 97.9 F 10/29/25 07:34 Pulse 87 10/29/25 07:34 Resp 16 10/29/25 07:34 BP 162/89 H 10/29/25 07:34 Pulse Ox 100 10/29/25 07:34 O2 Del Method Room Air 10/29/25 07:34 BMI result Body Mass Index 33.4 Objective Data Active Medications Acetaminophen (Acetaminophen 325 Mg Tablet) 650 mg PO Q6H PRN PRN Reason: Pain, Mild (Pain Scale 1-3) Albuterol/Ipratropium (Albuterol/Iprat 2.5/0.5mg 3 Ml Ampul.Neb) 3 ml INHALE Q4H PRN PRN Reason: Shortness of Breath/Wheezing Apixaban (Apixaban 5 Mg Tablet) 5 mg PO BID [facility] Last Admin: 10/29/25 08:49 Dose: 5 mg Documented By: DABA Benzonatate (Benzonatate 100 Mg Capsule) 100 mg PO TID PRN PRN Reason: Cough Calcium Carbonate (Calcium Carbonate 750 Mg Tab.Chew) 750 mg PO Q4H PRN PRN Reason: Heartburn Ceftriaxone Sodium 1 gm/ (Sodium Chloride) 50 mls @ 100 mls/hr IV Q24H [facility] Last Infusion: 10/28/25 20:53 Dose: Infused Documented By: ALLAN Labetalol HCl (Labetalol Hcl 100 Mg Tablet) 300 mg PO BID [facility]; Protocol Last Admin: 10/29/25 08:49 Dose: 300 mg Documented By: MCKENNA Magnesium Hydroxide (Milk Of Magnesia 30 Ml Oral.Susp) 30 ml PO DAILY PRN PRN Reason: Constipation Melatonin (Melatonin 3 Mg Tablet) 6 mg PO BEDTIME PRN PRN Reason: Insomnia Sodium Chloride (0.9 % Sodium Chloride Flush 3 Ml Syringe) 3 ml IVFLUSH QSHIFT [facility] Last Admin: 10/29/25 08:11 Dose: 3 ml Documented By: MCKENNA Labs 10/28/25 08:30 10/28/25 08:31 Labs: Laboratory Results - last 24 hr 10/27/25 09:30 Proteinase 3 (PR3) Ab <1.0 Myeloperoxidase Ab <1.0 Microbiology Microbiology Results: Microbiology 10/26/25 17:06 Blood Culture - Preliminary Blood - Venous No growth after 48 hours. 10/26/25 16:58 Blood Culture - Preliminary Blood - Venous No growth after 48 hours. 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 Noted to have UTI. UTI with Nephrostomy tube in place Continue ceftriaxone. Follow up cultures, will adjust ab based on this. Endometrial adenocarcinoma with metastasis Immunodeficiency secondary to cancer Per oncology, patient was scheduled to start oncology treatment today, however unable to due to progressive weakness and inability. O[facility] Oncology at [facility] mentioned that patient was not a surgical candidate, suggested on palliative chemo/immunotherapy. Patient this time felt that any systemic therapy such as chemotherapy for cancer would not be able to be tolerated, mentions that she agrees with being DNR/DNI as well as speaking to palliative care Abnormal CT of the chest Pulmonology consult for further input>continue abx for now Uterine bleeding Patient was told by her oncologist to hold the Eliquis for now. Serial H&H. CKD Creatinine currently around her baseline. DVT prophylaxis: SCD boots Code status: DNR/DNI Total time managing care of this patient today: 55 minutes. Quality Stroke Does the patient have a stroke diagnosis?: No VTE Prior VTE?: No VTE Risk Level:: Medical - moderate - high VTE Device Contraindication: Treatment Not Indicated VTE Drug Contraindication: N/A - Med Ordered
[2025-10-29 15:24] VITALS: BP 117/55; PULSE 100; RESP 16; TEMP 36.6; O2SAT 98
--- NOTE | 2025-10-29 15:52 | MHC.CM.PN ---
PT HAS MET WITH [employer], PLAN IS FOR HER TO GO TO [facility] FC IS WORKING ON A MH CHANEL FOR PT TO HAVE USP PLACEMENT IN THE FUTURE PT WILL NEED BLS TRANSPORT REFERRALS ARE OUT, NO BED OFFERS AT THIS TIME, HOWEVER MULTIPLE SNFS FOLLOWING
[2025-10-30 04:00] VITALS: BP 126/74; PULSE 65; RESP 16; TEMP 36; O2SAT 98
[2025-10-30 07:23] VITALS: BP 152/70; PULSE 86; RESP 16; TEMP 36.8; O2SAT 98
[2025-10-30 08:02] LABS: Hematocrit 30.1 % (37.0-47.0); Hemoglobin 9.1 g/dl (12.0-16.0); Mean Corpuscular HGB Conc 30.2 g/dl (31.0-35.0); Mean Corpuscular Hemoglobin 23.2 pg (27.0-33.0); Mean Corpuscular Volume 76.6 fL (80.0-98.0); NRBC Abs Auto 0.000 X10*3/uL (0.0-0.012); NRBC Pct Auto 0.0 /100WBC (0.0-0.2); Platelet Count 246 X10*3/uL (160-400); Red Blood Count 3.93 X10*6/uL (4.20-5.50); White Blood Count 17.1 X10*3/uL (4.8-10.8)
[2025-10-30 08:33] LABS: Anion Gap 12 (12-20); Blood Urea Nitrogen 25 mg/dL (9-16); Calcium 8.6 mg/dL (8.4-10.2); Carbon Dioxide 22 mmol/L (22-29); Chloride 111 mmol/L (96-108); Creatinine Clr Calc Pharmacy 42.5; Estimated Glomerular Filt Rate 37; Potassium 3.6 mmol/L (3.3-5.1); Sodium 141 mmol/L (135-145)
[2025-10-30] MEDS: 0.9 % Sodium Chloride Flush 3 ML SYRINGE IVFLUSH ×2 (08:51→14:19)
[2025-10-30 09:02] VITALS: BP 132/68; PULSE 80
--- NOTE | 2025-10-30 10:58 | MHC.CM.PN ---
pt dcd today at 4:30 to me ileana sister corazon
--- NOTE | 2025-10-30 14:04 | P.DS_ITS ---
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 (3) Attention to nephrostomy: Status: Acute DS: Summary Hospital Course Hospital Course: 65-year-old female with a past medical history of HTN, HLD, CKD, history of DVT- on Eliquis, endometrial adenocarcinoma with metastasis, anemia, recent admission to the hospital for pneumonia status post antibiotic therapy; presented to the hospital for generalized weakness, found to have UTI, treated with IV ceftriaxone with improvement of symptoms, however patient persisted with weakness, had goals of care discussion, patient wishes to be discharged home palliative care and possible transition to hospice care. UTI with Nephrostomy tube in place Will switch from ceftriaxone to cefpodoxime 200 mg b.i.d. with the EOT on 11/03 Urine cultures contaminated Endometrial adenocarcinoma with metastasis Immunodeficiency secondary to cancer OBGYN Oncology at [facility] mentioned that patient was not a surgical candidate, suggested on palliative chemo/immunotherapy. Patient this time felt that any systemic therapy such as chemotherapy for cancer would not be able to be tolerated, patient agreed and transition to DNR DNI status, transitioned to palliative care and possible hospice if indicated. CKD Creatinine currently around her baseline. Time Attestation Discharge Coordination Time (in mins): 35 minutes Quality: Safe Use of Opioids Does Pt have an Active Cancer Diagnosis on the Problem List?: Yes Opioid Measure Date for [facility] Report: 09/30/25 Opioid Measure Time for [facility] Report: 14:12 Quality: Stroke Does the patient have a stroke diagnosis?: No Physical Exam Exam: Exam: General: AxOx3, No acute distress, frail Head: AT/NC ENT: Moist mucous membranes Neck: supple CVS; RRR, S1 S2 normal Lungs: Clear bilateral breath sounds, no wheezes or crackles Abd: Soft non tender, non distended Ext: Right lower extremity edema, improved MSK: moving all 4 limbs Skin: No cyanosis Psych: Cooperative with exam Neurology: no focal deficit Vital Signs: Vital Signs: Last Vital Signs Temp 98.3 F 10/30/25 07:23 Pulse 80 10/30/25 09:02 Resp 16 10/30/25 07:23 BP 132/68 10/30/25 09:02 Pulse Ox 98 10/30/25 07:23 O2 Del Method Room Air 10/30/25 07:23 BMI result Body Mass Index 33.4 DS: Data Data Completed and Pending Completed studies during hospitalization [Text1]: Procedures Drainage of Right Kidney Pelvis with Drainage Device, Percutaneous Approach (09/16/25) Excision of Right Hip Muscle, Percutaneous Approach, Diagnostic (09/16/25) Labs on day of discharge: Laboratory Results - last 24 hr 10/30/25 07:56 WBC 17.1 H RBC 3.93 L Hgb 9.1 L Hct 30.1 L MCV 76.6 L MCH 23.2 L MCHC 30.2 L RDW 16.2 H Plt Count 246 MPV 9.6 Absolute Nucleated RBC 0.000 Nucleated RBC % (auto) 0.0 Sodium 141 Potassium 3.6 Chloride 111 H Carbon Dioxide 22 Anion Gap 12 BUN 25 H Creatinine 1.43 H Estim Creat Clear Calc 42.5 Estimated GFR 37 Random Glucose 95 Calcium 8.6 D Preliminary micro results at discharge 10/26/25 17:06 Blood Culture - Preliminary Blood - Venous No growth after 48 hours. 10/26/25 16:58 Blood Culture - Preliminary Blood - Venous No growth after 48 hours. Discharge Plan Discharge Anticipated Discharge Date/Time: 10/30/25 14:48 Patient Disposition: Xfer [facility] Discharge Diagnosis: Urinary tract infection Referrals: romain tejeda [Other] - 1 Week Meg Lockett MD [Primary Care Provider, Internal Medicine] - 1 Week Discharge Medications: New cefpodoxime 200 mg tablet 200 mg PO BID 4 Days Qty: 8 0RF Rx Instructions: must administer with a meal/food Continued Eliquis 5 mg tablet 5 mg PO BID Qty: 60 4RF labetalol 100 mg Tablet 300 mg PO BID Qty: 60 0RF Discharge Orders: Discharge Order (Routine); Ordered 10/30/25 Ordered By: Derick Nesbitt Activity on Discharge: As tolerated Stand Alone Forms: Patient Portal Discharge page Print Language: Turkish Care Plan Goals: continue antibiotic with end of treatment on 11/03 Follow up with oncology as outpatient Follow up with urology as outpatient Health Concerns: Generalized weakness Urinary Tract Infection Endometrial cancer with metastatis Plan of Treatment: Transitioned from ceftriaxone IV to oral cefpodoxime 200mg BID with EoT on 11/03 work with physical therapy at rehab Assessment: 65-year-old female with a past medical history of HTN, HLD, CKD, history of DVT- on Eliquis, endometrial adenocarcinoma with metastasis, anemia, recent admission to the hospital for pneumonia status post antibiotic therapy; presented to the hospital for generalized weakness, found to have UTI, treated with IV ceftriaxone with improvement of symptoms, however patient persisted with weakness, had goals of care discussion, patient mentioned that if her heart stops to let her pass peacefully , code status changed to DNR/DNI.
[2025-10-30 15:14] VITALS: BP 144/76; PULSE 92; RESP 18; TEMP 36.2; O2SAT 98
[2025-10-30 19:38] LABS: Fungitell 1,3 beta glucan Negative
== END 2025-10-30 16:56 | disposition skilled nursing facility (03) | DRG 690 ==
LOC: HO.ED 20:58 → HO.EDOVER 21:35 → HO.IMC 10-27 07:26 → HO.S3 10-28 13:36
PROVIDERS: Emergency Medicine Emergency Medical Services; Hospitalist; Nurse Practitioner; Admitting Provider Hospitalist; Emergency Provider Student in an Organized Health Care Education/Training Program; PCP Internal Medicine; Visit Provider Student in an Organized Health Care Education/Training Program
DX: N39.0 Urinary tract infection, site not specified (principal); C79.89 Secondary malignant neoplasm of other specified sites; N18.4 Chronic kidney disease, stage 4 (severe); C54.1 Malignant neoplasm of endometrium; I12.9 Hypertensive chronic kidney disease with stage 1 through stage 4 chronic kidney disease, or unspecified chronic kidney disease; Z93.6 Other artificial openings of urinary tract status; E78.5 Hyperlipidemia, unspecified; E66.9 Obesity, unspecified; Z68.33 Body mass index [BMI] 33.0-33.9, adult; Z66 Do not resuscitate; Z20.822 Contact with and (suspected) exposure to COVID-19; Z86.718 Personal history of other venous thrombosis and embolism; Z79.01 Long term (current) use of anticoagulants; Z79.899 Other long term (current) drug therapy
CPT/HCPCS: 36415; 71275; 74177; 80048; 80053; 81001; 83605; 83615; 85025; 85027; 85652; 86021; 87040; 87086; 87449; 87637; 93005; 93306; 97162; 99284; J0696; Q9957; Q9967

== ENCOUNTER → 2025-10-26 14:27 | Outpatient (BNV) | payer MEDICARE, SELFPAY | PROVIDERS: Admitting Provider Hospitalist; Emergency Provider Student in an Organized Health Care Education/Training Program; PCP Internal Medicine; Visit Provider Internal Medicine | DX: R94.31 Abnormal electrocardiogram [ECG] [EKG] (principal); R53.1 Weakness | CPT/HCPCS: 93010 ==

== ENCOUNTER → 2025-10-26 16:25 | Outpatient (BNV) | payer MEDICARE, SELFPAY | PROVIDERS: Emergency Provider Emergency Medicine Emergency Medical Services; PCP Internal Medicine; Visit Provider Radiology Diagnostic Radiology | DX: R91.8 Other nonspecific abnormal finding of lung field (principal); K80.20 Calculus of gallbladder without cholecystitis without obstruction; K68.9 Other disorders of retroperitoneum | CPT/HCPCS: 71275; 74177 ==

== ENCOUNTER 2025-10-26 21:04 | Outpatient (BNV) | payer MEDICARE, SELFPAY | END 2025-10-28 07:00 | PROVIDERS: Admitting Provider Hospitalist; Emergency Provider Student in an Organized Health Care Education/Training Program; PCP Internal Medicine; Visit Provider Internal Medicine | DX: I27.20 Pulmonary hypertension, unspecified (principal); I51.89 Other ill-defined heart diseases | CPT/HCPCS: 93306 ==

== ENCOUNTER → 2025-10-26 21:04 | Outpatient (BNV) | payer MEDICARE, SELFPAY | PROVIDERS: Admitting Provider Hospitalist; Emergency Provider Student in an Organized Health Care Education/Training Program; PCP Internal Medicine; Visit Provider Hospitalist | DX: C54.1 Malignant neoplasm of endometrium (principal); R91.1 Solitary pulmonary nodule; N39.0 Urinary tract infection, site not specified; R53.1 Weakness | CPT/HCPCS: 99223 ==

== ENCOUNTER → 2025-10-26 21:04 | Outpatient (BNV) | payer MEDICARE, SELFPAY | PROVIDERS: Admitting Provider Hospitalist; Emergency Provider Student in an Organized Health Care Education/Training Program; PCP Internal Medicine; Visit Provider Internal Medicine | DX: C54.1 Malignant neoplasm of endometrium (principal); I82.401 Acute embolism and thrombosis of unspecified deep veins of right lower extremity; R59.0 Localized enlarged lymph nodes | CPT/HCPCS: 99222 ==

== ENCOUNTER → 2025-10-26 21:04 | Outpatient (BNV) | payer MEDICARE, SELFPAY | PROVIDERS: Admitting Provider Hospitalist; Emergency Provider Student in an Organized Health Care Education/Training Program; PCP Internal Medicine; Visit Provider Nurse Practitioner Acute Care | DX: C54.1 Malignant neoplasm of endometrium (principal); D49.9 Neoplasm of unspecified behavior of unspecified site; D84.81 Immunodeficiency due to conditions classified elsewhere; Z43.6 Encounter for attention to other artificial openings of urinary tract | CPT/HCPCS: 99232; 99233; 99239 ==